=== PATIENT | male | born 1935 | race Caucasian/White ===

== ENCOUNTER 2017-07-31 09:01 | Observation (INO) | payer MEDICARE, MEDICAID ==
[~2017-07-31] VITALS: Ht 167.6 cm; Wt 71.3 kg
[2017-07-31] VITALS (7 sets, daily range): BP systolic 104–172; BP diastolic 52–105
[~2017-07-31 09:01] MED LIST: ASPI-COR81 M1 PO; ASPIRIN 81MG TA81 MG PO; CLONAZEPAM 1MG T1 MG PO; COUMADIN3 MG PO; COUMADIN4 MG PO; DIGOXIN0.125 MG PO; FLAGYL 500MG.500 MG PO; FLOMAX 0.4MG C0.4 MG PO; FUROSEMIDE 40MG40 M1 PO; LASIX 40MG. TAB40 MG PO; LEVOTHYROXINE0.1 M1 PO; LEVOTHYROXINE0.1 MG PO; LOPRESSOR 25MG.25 M1 PO; METOPROLOL50 MG PO; NORCO 325 MG-51 TAB PO; OMEPRAZOLE D/R20 MG PO; OMEPRAZOLE20 MG PO; POTASSIUM CHLO10 ME1 PO; POTASSIUM CHLO10 ME3 PO; POTASSIUM CHLO20 ME2 PO; SIMVASTATIN40 MG PO; TRAMADOL 50MG T50 M1 PO; TRAMADOL50 M1 PO; WARFARIN 3MG TAB3 MG PO; WARFARIN SODIUM1 MG PO; ZOCOR40 MG PO
--- NOTE | 2017-07-31 09:33 | Emergency Room Report ---
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 N Clinical Suspician of Infection? N Mental Status: 1 - Regular (Normal Baseline) Sepsis Risk:Low Sepsis Risk Have you (or family members/close friends) recently traveled outside the [place]? N If Yes, where/when: Have you had exposure to infectious disease within the past month? N TB? Other? Specify: Comment Patient complains of rectal bleeding. He says that this morning he had a sense of tenesmus and sat on the toilet for 30 minutes. He only produced a small amount of stool. He had several episodes of bright red rectal bleeding, at first red blood, then mixed with mucus. He has some slight left-sided abdominal discomfort and a slight discomfort in his rectum. No fever or vomiting. He is on Coumadin for a valve replacement and atrial fibrillation. He thinks his last INR was 4.2 couple of weeks ago. No changes made in his Coumadin dosage. ALLERGIES Coded Allergies: codeine (06/23/17) Home Medications Reported Medications Warfarin Sodium (Coumadin) 4 MG PO [email or web address] WARFARIN SOD (Warfarin 3MG) 3 MG PO [email or web address] Simvastatin (Zocor) 40 MG PO QHS Furosemide (Lasix 40MG) 40 MG PO DAILY POTASSIUM CHL (Potassium Chloride) 10 MEQ PO DAILY LEVOTHYROXINE SOD (Synthroid) 0.1 MG PO DAILY TAMSULOSIN HCL (Flomax 0.4MG) 0.4 MG PO QHS Omeprazole 20 MG PO DAILY Metoprolol Tartrate (Metoprolol) 50 MG PO BID Clonazepam (Clonazepam 1MG) 1 MG PO TID Aspirin (Aspi-Cor) 81 MG PO DAILY History Medical History General CAD? No Angina: Yes [place]: Yes Hypertension? Yes Hyperlipidemia? Yes CHF? No DVT? No PE? No COPD? No Asthma? No Anemia? No GERD? No Gastric ulcers? No GI Bleed? No Hernia? No Thyroid Problems? No Hypothyroidism? No CVA? No Seizures? No Diabetes? No Insulin Dependent: No Insulin Pump: No Home FSBS? No Renal Insuffiency? No End Stage Renal Disease? No UTI? No Stones? No BPH? No GB Disease: No Nephritic Syndrome? No Asplenia? No Hepatitis? No Sickle Cell Disease? No Arthritis? No Migraines? No Cataracts? No Glaucoma? No MRSA? No HIV? No TB? No Anxiety? No Depression? No Cancer? No More? No Immunization Hx DT/Tetanus > 10 Years Ago Flu 2012-FSN Pneumonia Received In Past Surgical Hx Previous Surgery?Y HEART STENTS COLONSCOPY POLYP REMOVED HEART VALVE REPLACEMENT COLON TUMOR REMOVED BILAT INGUINAL HERNIA UMBILICAL HERNIA CARDIAC CATH 11/2013 Family History Family Hx Diabetes No CAD Yes Hypertension No Hyperlipidemia No Cancer Yes TB Yes Social History Smoking Hx Smoker: Never Smoker Tobacco: No Packs/day N/A Alcohol Alcohol: No Review of Systems All Other Systems Reviewed and Negative Constitutional denies fever ENT epistaxis (small amounts for one week). Respiratory denies shortness of breath Cardiovascular denies chest pain, denies palpitations Gastrointestinal see HPI, abdominal pain Physical Exam Vital Signs Vital Signs Date Time Temp Pulse Resp B/P Pulse O2 O2 Flow FiO2 Ox Delivery Rate 07/31 1212 116 18 133/62 95 07/31 1136 135 20 136/80 96 07/31 1101 90 20 142/74 96 07/31 0946 93 20 155/93 97 07/31 0902 97.5 88 20 172/105 97 General Appearance no apparent distress Eye Exam - bilateral eye normal exam, bilateral eye PERRL, bilateral eye EOMI Ear, Nose, Throat hearing grossly normal, normal ENT inspection Neck normal inspection, non-tender, supple, full range of motion Respiratory Status Yes: trachea midline, chest symmetrical, non tender chest. No: respiratory distress. Lung Sounds bilateral: normal breath sounds, lungs clear. Cardiovascular no peripheral edema, no gallop, no JVD, no murmur, no rub, normal peripheral pulses, irregularly irregular, mechanical valve click Peripheral Pulses Pulses normal Yes Gastrointestinal normal bowel sounds, soft, no organomegaly, no guarding, no rebound, tenderness (LEFT lower quadrant) Extremities non-tender, normal range of motion, normal inspection Rectal tight, strictured anal sphincter. No external lesions. Red mucoid blood. No mass. 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 No Results/Orders Laboratory Tests 07/31/17 0940: Stool Occult Blood POSITIVE 07/31/1725: Sodium 141, Potassium 3.8, Chloride 105, Carbon Dioxide 30, BUN 16, Creatinine 0.9, Estimated Creat Clear 63, Estimated GFR (MDRD) 81, Glucose 108 H, Calcium 8.9, Total Bilirubin 0.7, AST 23, ALT 16, Alkaline Phosphatase 74, Total Protein 7.6, Albumin 3.8, Globulin 3.8 H, Albumin/Globulin Ratio 1.0 L, PT 39.0 H, INR 3.56 H, WBC 5.9, RBC 4.99, Hgb 14.2, Hct 43.8, MCV 87.8, RDW 16.1, Plt Count 149, Gran % 82.1 H, Gran # 4.8, Lymphocytes % 14.1, Monocytes % 3.8, Lymphocytes # 0.8, Monocytes # 0.2, PUBS MCHC 32.4, MCH 28.5 Current Medication Orders Sig/Laci Start time Last Medication Dose Route Stop Time Status Admin Clonazepam 1 MG ONCE ONE 07/31 1145 DC 07/31 PO 07/31 1146 1142 Metoprolol Tartrate 50 MG ONCE ONE 07/31 1145 DC 07/31 PO 07/31 1146 1135 Clonazepam 0 .STK-MED ONE 07/31 1139 DC .ROUTE Metoprolol Tartrate 0 .STK-MED ONE 07/31 1135 DC .ROUTE Iopamidol 75 ML ONCE ONE 07/31 1100 DC 07/31 IV 07/31 1101 1054 Sodium Chloride 10 ML ONCE ONE 07/31 1100 DC 07/31 IV 07/31 1101 1054 Sodium Chloride 10 ML PRN PRN 07/31 0915 AC IV 08/01 0913 Orders Procedure Date/time Status DIET-NOTHING BY MOUTH 07/31 L Complete Decision to admit 07/31 1330 Active ELECTROCARDIOGRAM REQUEST 07/31 1125 Active CLOTH TRIMMER HAND 07/[address] ABD/PELVIS REQ 07/31 1010 Complete IV SALINE LOCK 07/31 913 Active STOOL OCCULT BLOOD 07/31 913 Complete PROTHROMBIN TIME 07/31 913 Complete CBC WITH AUTO DIFF 07/31 913 Complete CHEM 12 PROFILE 07/31 913 Complete CM/EKG CM/EKG Comments EKG interpreted by Jj Martínez MD: Rhythm: Atrial fibrillation, rapid response Rate: 133 [place]: normal Ectopy: none Conduction: normal ST Segment Changes: Nonspecific T Wave Changes: Nonspecific Q Waves: none No evidence of acute ischemia or injury Baseline artifact present, but I consider the EKG adequate for accurate interpretation. XRAY/CT/US XRAY/CT/US CT abdomen, pelvis Comment CT scan interpreted by radiologist: Mild constipation, no acute process otherwise. Progress - 11:20 AM: The patient's heart rate is 137 and regular. Electrocardiogram and surveillance monitor ordered. No further episodes of hematochezia in the emergency department. He denies palpitations, chest pain, or shortness of breath. He has not taken his metoprolol today. 12:20 PM: Heart rate 100. 12:58 PM: Case discussed with Dr. Camarillo, physician applications coordinator. He requests that Dr. Gasca be contacted. If Dr. Gasca is agreeable to him being admitted here, admit and consult surgery. 1:15 PM: Discussed with Dr. Gasca. He approves admitting the patient here. He does not know when the patient's last colonoscopy was. He says the patient was admitted for colitis several months ago, possibly January. He does not recall whether he had C. difficile, but thinks he might have. Departure Departure Disposition Still a Patient Clinical Impression Primary Impression: Hematochezia Secondary Impressions: Atrial fibrillation Qualifiers: Atrial fibrillation type: chronic Qualified Code: I48.2 - Chronic atrial fibrillation Condition STABLE Referrals MAYTE HENSLEY (PCP/Family) ED Critical Care Critical Care No at [phone]
[2017-07-31 09:38] LABS: HEMOGLOBIN 14.2 g/dL (14.1-18.0)
[2017-07-31 09:39] LABS: LYMPH # 0.8 K/mm3 (0.7-4.5); LYMPH % 14.1 % (10-50)
[2017-07-31 10:00] LABS: STOOL OCCULT BLOOD POSITIVE (NEG)
--- NOTE | 2017-07-31 11:16 | RADIOLOGY REPORT PS360 ---
CT ABD PELVIS W/ CONTRAST CLINICAL INDICATION: LEFT ABD PAIN RECTAL BLEEDING, history of colon cancer and small bowel obstruction ORDERING PHYSICIAN: Jj Martínez MD PATIENT AGE: 82 years COMPARISON: 06/23/2017 TECHNIQUE: Axial images obtained with sagittal and coronal reformats. PROCEDURE: Oral Contrast: None IV Contrast: 75 mL of Isovue-[id number]. FINDINGS: Lung base images show atelectatic/fibrotic changes in the lung bases. Prior median sternotomy with mitral valve replacement. The liver, gallbladder, spleen, adrenal glands, pancreas, and kidneys have an unremarkable appearance. There is been interval improvement in the small bowel obstruction. There is a mild amount retained colonic feces with colonic diverticulosis. No evidence of diverticulitis. No evidence of large bowel obstruction. Postsurgical changes are present in the right inguinal canal with small bowel loops noted within this region but no evidence of obvious herniation. No acute bony anomalies. IMPRESSION: 1. No acute findings. 2. Previously described small bowel obstruction has improved. 3. Mild constipation
--- NOTE | 2017-07-31 16:06 | CONSULT NOTE ---
Standard Demographics Patient Demo Date of Consultation: 07/31/17 Referring Provider: Zahra Camarillo MD Reason for Consultation: rectal bleeding PRIMARY DIAGNOSIS: RECTAL BLEEDING Allergies: Coded Allergies: codeine (06/23/17) History of Present Illness Chief Complaint: Bleeding with bowel movement History of Present Illness: Patient is an 82-year-old white male with an apparent history of colon lesion for which she had undergone laparotomy with resection many years ago. The exact details of this are unknown but the patient states that it "wasn't a cancer". He has undergone several previous colonoscopies by Dr. Beauchamp. 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 Patient had a post polypectomy bleed at that time required flexible sigmoidoscopy 3 days later. He was recently admitted 06/[address] scan at that time revealed findings of possible obstruction. He was managed appropriately by Dr. Magana as a surgical clinical reviewer at that time and it was determined that he likely had an ileus secondary to positive C. difficile. He had convalesced well. Patient had developed some pressure and urge to defecate. He had some symptoms consistent with tenesmus and had passed blood when he attempted to have a bowel movement. He describes significant soreness. The passage of blood was followed by some mucousy bloody type material. Of note, the patient is on chronic warfarin anticoagulation therapy for history of atrial fibrillation and is on antiplatelet therapy for prior cardiac stents. Past Medical History Reports: CAD, hypertension, cancer. Surgical History Previous Surgery?Y HEART STENTS COLONSCOPY POLYP REMOVED HEART VALVE REPLACEMENT COLON TUMOR REMOVED BILAT INGUINAL HERNIA UMBILICAL HERNIA CARDIAC CATH 11/2013 Allergies Coded Allergies: codeine (06/23/17) Medications: Reported Medications Warfarin Sodium (Coumadin) 4 MG PO [email or web address]@QHS WARFARIN SOD (Warfarin 3MG) 3 MG PO [email or web address]@QHS Simvastatin (Zocor) 40 MG PO QHS Furosemide (Lasix 40MG) 40 MG PO DAILY POTASSIUM CHL (Potassium Chloride) 10 MEQ PO DAILY LEVOTHYROXINE SOD (Synthroid) 0.1 MG PO DAILY TAMSULOSIN HCL (Flomax 0.4MG) 0.4 MG PO QHS Omeprazole 20 MG PO DAILY Metoprolol Tartrate (Metoprolol) 50 MG PO BID Clonazepam (Clonazepam 1MG) 1 MG PO TID Aspirin (Aspi-Cor) 81 MG PO DAILY Additional medical history: Prior heart valve replacement. History of colon "tumor". Recent history of C. difficile. Smoking Hx Tobacco: No Smoker: Never Smoker Type: N/A Packs/day: N/A Are you/the child exposed to second-hand smoke: No Alcohol Alcohol: No Hx of Drug Use Drug Use? No Review of Systems Constitutional No: chills. Skin No: contusions. Immune/allergy No: anaphalaxis. Eyes No: vision loss. ENT No: hearing loss. Respiratory No: shortness of air. Cardiovascular No: chest pain. GI Positive for: hematochezia, rectal pain. (male) No: hematuria. Musculoskeletal No: extremity swelling. Heme Positive for: bleeding. No: bruising. Endocrine No: cold intolerance. Physical Exam VS/I&O Vital Signs Date Time Temp Pulse Resp B/P Pulse O2 O2 Flow FiO2 Ox Delivery Rate 07/31 1556 98.5 71 20 116/62 95 ROOM AIR 07/31 1448 98.6 74 18 110/63 94 ROOM AIR 07/31 1444 73 07/31 1444 98.6 74 18 110/63 07/31 1444 94 ROOM AIR 07/31 1425 97.9 73 18 138/71 94 07/31 1350 73 18 138/71 94 07/31 1212 116 18 133/62 95 07/31 1136 135 20 136/80 96 07/31 1101 90 20 142/74 96 07/31 0946 93 20 155/93 97 07/31 0902 97.5 88 20 172/105 97 Exam General appearance no acute distress Respiratory clear to auscultation Cardiovascular irregular rate and rhythm Abdomen soft Findings/Data On examination his abdomen is somewhat protuberant. He has a large midline scar. There is a visible palpable moderately large reducible umbilical hernia. Visual examination of the anal region reveals no irregularity. Limited digital examination reveals some mucousy stool. Patient has quite significant discomfort with minimal examination. Plan Plan: There is concern for possible rectal pathology. Patient is on chronic warfarin anticoagulation therapy. Would not plan for any instrumentation at this time. If this coagulation profile can be safely corrected he may be old undergo at least sigmoidoscopy later this week if needed. at 1604
--- NOTE | 2017-07-31 17:31 | HISTORY AND PHYSICAL REPORT ---
History and Physical ([facility]) Date of admission: 07/31/17 Chief complaint: rectal bleeding History: History of Present Illness: History of Present Illness: Mr Griffin is an 82-year-old white male of Dr Terry with an apparent history of colon lesion for which he had undergone laparotomy with resection many years ago. The exact details of this are unknown but the patient states that it "wasn' t a cancer". He has undergone several previous colonoscopies by Dr. Beauchamp. 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 Patient had a post polypectomy bleed at that time required flexible sigmoidoscopy 3 days later. He was recently admitted 06/[address] scan at that time revealed findings of possible obstruction. He was managed appropriately by Dr. Magana as a surgical device sales representative at that time and it was determined that he likely had an ileus secondary to positive C. difficile. He had convalesced well. Patient had developed some pressure and urge to defecate. He had some symptoms consistent with tenesmus and had passed blood when he attempted to have a bowel movement. He describes significant soreness. The passage of blood was followed by some mucousy bloody type material. Of note, the patient is on chronic warfarin anticoagulation therapy for history of atrial fibrillation and is on antiplatelet therapy for prior cardiac stents. Patient at time of this exam complains only of rectal pain. he has been constipated recently and has just passed a large amount of stool and feels so much better. He noted no blood. He has been eating without difficulty but confesses to eatin lot of cheese and dairy products. He denies nausea and vomiting and fever. Past Medical History: Medical History: CAD? Yes Angina: Yes [place]: Yes Hypertension? Yes Hyperlipidemia? Yes CHF? No DVT? No PE? No COPD? No Asthma? No Anemia? No GERD? No Gastric ulcers? No GI Bleed? No Hernia? No Thyroid Problems? Yes Hypothyroidism? Yes CVA? No Seizures? No Diabetes? No Insulin Dependent: No Insulin Pump: No Home FSBS? No Renal Insuffiency? No UTI? No Stones? No BPH? No GB Disease: No Nephritic Syndrome? No Asplenia? No Hepatitis? No Sickle Cell Disease? No Arthritis? Yes Migraines? No Cataracts? No Glaucoma? No MRSA? No HIV? No TB? No Anxiety? No Depression? No Cancer? No More? No Additional hx: MVR Chronic coumadin therapy Essential tremor Surgical history: Previous Surgery?Y HEART STENTS COLONSCOPY POLYP REMOVED HEART VALVE REPLACEMENT COLON TUMOR REMOVED BILAT INGUINAL HERNIA UMBILICAL HERNIA CARDIAC CATH 11/2013 Medications: Reported Medications Warfarin Sodium (Coumadin) 4 MG PO SuTuThSa@QHS WARFARIN SOD (Warfarin 3MG) 3 MG PO MoWeFr@QHS Simvastatin (Zocor) 40 MG PO QHS Furosemide (Lasix 40MG) 40 MG PO DAILY POTASSIUM CHL (Potassium Chloride) 10 MEQ PO DAILY LEVOTHYROXINE SOD (Synthroid) 0.1 MG PO DAILY TAMSULOSIN HCL (Flomax 0.4MG) 0.4 MG PO QHS Omeprazole 20 MG PO DAILY Metoprolol Tartrate (Metoprolol) 50 MG PO BID Clonazepam (Clonazepam 1MG) 1 MG PO TID Aspirin (Aspi-Cor) 81 MG PO DAILY Allergies: Coded Allergies: codeine (06/23/17) Family History: Family history: Postive for: cancer. Negative for: CAD, DM. Social History: Smoking Hx Tobacco: No Smoker: Never Smoker Type: N/A Packs/day: N/A Are you exposed to second hand No Alcohol: Alcohol: No Hx of Drug Use: Drug Use? No Review of Systems: ENT Positive for: nose bleed, sinus problems. No: sore throat. Cardiovascular Positive for: edema. No: chest pain, palpitations. Respiratory No: shortness of air, hemoptysis, non-productive, productive cough (sputum). GI Positive for: constipation, hematochezia, hernia, rectal pain. No: GERD, abdominal pain, diarrhea, hematemeis, melena, nausea, vomitting. (male) No: hematuria. Neurological No: dizziness, headache, seizure, syncope. Musculoskeletal Positive for: joint pain. Physical Exam: Vital signs: Vital Signs Date Time Temp Pulse Resp B/P Pulse O2 O2 Flow FiO2 Ox Delivery Rate 07/31 1556 98.5 71 20 116/62 95 ROOM AIR 07/31 1448 98.6 74 18 110/63 94 ROOM AIR 07/31 1444 73 07/31 1444 98.6 74 18 110/63 07/31 1444 94 ROOM AIR 07/31 1425 97.9 73 18 138/71 94 07/31 1350 73 18 138/71 94 07/31 1212 116 18 133/62 95 07/31 1136 135 20 136/80 96 07/31 1101 90 20 142/74 96 07/31 0946 93 20 155/93 97 07/31 0902 97.5 88 20 172/105 97 1ST Vital Signs Result Date Time Pulse Ox 97 07/31 902 B/P 172/105 07/31 902 Temp 97.5 07/31 902 Pulse 88 07/31 09 Resp 20 07/31 902 O2 Delivery ROOM AIR 07/31 1444 Exam: General appearance: alert, active, no acute distress, sitting on bedside and looks comfortable Eyes: anicteric ENT: mucous membranes moist, pharynx normal Neck: non-tender, no carotid bruit, full range of motion, supple, lymphadenopathy (absent), thyroid (normal) Cardiovascular: irregularly irregular, prosthetic valve click Respiratory: clear to auscultation (bilat anterior and posterior) ABD: soft, no tenderness, no guarding, bowel sounds present, hernia, rectal per Dr. Galvan: mucousy stool; quite a bit of discomfort with exam Extremities: no peripheral edema Neuro: alert, oriented, speech clear, head tremor Lab data: Labs: Laboratory Tests 07/31/17 0940: Stool Occult Blood POSITIVE 07/31/17 0925: Sodium 141, Potassium 3.8, Chloride 105, Carbon Dioxide 30, BUN 16, Creatinine 0.9, Estimated Creat Clear 63, Estimated GFR (MDRD) 81, Glucose 108 H, Calcium 8.9, Total Bilirubin 0.7, AST 23, ALT 16, Alkaline Phosphatase 74, Total Protein 7.6, Albumin 3.8, Globulin 3.8 H, Albumin/Globulin Ratio 1.0 L, PT 39.0 H, INR 3.56 H, WBC 5.9, RBC 4.99, Hgb 14.2, Hct 43.8, MCV 87.8, RDW 16.1, Plt Count 149, Gran % 82.1 H, Gran # 4.8, Lymphocytes % 14.1, Monocytes % 3.8, Lymphocytes # 0.8, Monocytes # 0.2, PUBS MCHC 32.4, MCH 28.5 Radiology results: Results: 07/31/17 CT of abdomen IMPRESSION: 1. No acute findings. 2. Previously described small bowel obstruction has improved. 3. Mild constipation Diagnosis(es): 1. Atrial fibrillation 2. Hematochezia 3. Mechanical heart valve present Plan: Pt has been seen by surgeon, Dr. Galvan who will follow pt this admission; monitor H&H at 1694
--- NOTE | 2017-07-31 18:33 | ACUTE CARE PROGRESS NOTE (QUA) ---
See Addendum Progress Notes Subjective Date 07/31/17 Time 1815 Note 82 y.o. white male admitted with rectal bleeding that started this AM. He is currently a patient of Dr. Garcia Terry, [facility] (though he is known to have been under Dr. Camarillo's care in the remote past.). Patient has had prior history of rectal bleeding. Colonoscopies were performed in 07/2003 (polyp x2), Dr. Beauchamp; 09/2007 with excision of large tubulovillous adenoma, Dr. Beauchamp; "partial colonoscopy" for GI bleed, Dr. Galvan, The patient has aortic AND mitral valve prosthetics. He has had stent(s) placed. Apparently the patient has recently had C. diff colitis and was treated with antibiotic. He was seen and examined in the ER. He seems clinically stable, NAD. H&H is good at this time. Objective Findings Laboratory Tests 07/31/17 0940: Stool Occult Blood POSITIVE 07/31/17 0925: Sodium 141, Potassium 3.8, Chloride 105, Carbon Dioxide 30, BUN 16, Creatinine 0.9, Estimated Creat Clear 63, Estimated GFR (MDRD) 81, Glucose 108 H, Calcium 8.9, Total Bilirubin 0.7, AST 23, ALT 16, Alkaline Phosphatase 74, Total Protein 7.6, Albumin 3.8, Globulin 3.8 H, Albumin/Globulin Ratio 1.0 L, PT 39.0 H, INR 3.56 H, WBC 5.9, RBC 4.99, Hgb 14.2, Hct 43.8, MCV 87.8, RDW 16.1, Plt Count 149, Gran % 82.1 H, Gran # 4.8, Lymphocytes % 14.1, Monocytes % 3.8, Lymphocytes # 0.8, Monocytes # 0.2, PUBS MCHC 32.4, MCH 28.5 Last VS-Temp:98.5 B/P:116/62 Pulse:71 Resp:20 SaO2:95 ROOM AIR Last weight lbs:157 oz:3 K.300 Method:Bed Scales Exam General appearance: alert, no acute distress Eyes: anicteric, conjunctiva clear, PERRLA ENT: mucous membranes moist Neck: carotid bruit (referred) Cardiovascular: irregularly irregular, prosthetic valve click Respiratory: aerating well, clear to auscultation (wheeze right) ABD: soft, no tenderness, no guarding Genitourinary: normal voiding & quantity Extremities: no peripheral edema Musculoskeletal: equal muscle strength Skin: dry, intact Neuro: oriented, speech clear (tremor prominent) Reviewed: medications, vital signs, lab results, radiology report Assessment/Plan Problem List 1. Atrial fibrillation 2. Hematochezia 3. Mechanical heart valve present Patient condition Stable Plan: consult surgeon, follow H&H. Lovenox in Lieu of coumadin. This inpt stay is expected to cross 2 MNs from start of care Yes at 1833
[2017-08-01 04:10] VITALS: BP 114/60
--- NOTE | 2017-08-01 07:55 | PHARMACY CLINIC NOTE ---
Patient Demographics Patient Demographics Admission date: 07/31/17 Date: 08/01/17 Time: 0754 Allergies Coded Allergies: codeine (06/23/17) HEIGHT- FT: 5 IN: 6.00 K.300 VTE General Information Labs: Laboratory Tests 07/31 0925 Coagulation PT (9.4 - 11.8 SECONDS) 39.0 H INR (0.9 - 1.1) 3.56 H Hematology Hgb (14.1 - 18.0 g/dL) 14.2 Hct (42.0 - 52.0 %) 43.8 Plt Count (142 - 424 K/mm3) 149 Disclaimer The following section includes nursing documentation that has been pulled in for pharmacy review. Patient's VTE score: 1 Patient's VTE Risk: VERY LOW RISK Clinical trial participant? No VTE prophylaxis NQF [id number] VTE prophylaxis ordered? Yes Type of prophylaxis/treatment: JEFFY at 0754
[2017-08-01 08:00] VITALS: BP 128/65
[2017-08-01 08:01] LABS: HEMOGLOBIN 13.9 g/dL (14.1-18.0); LYMPH # 1.4 K/mm3 (0.7-4.5); LYMPH % 16.9 % (10-50)
[2017-08-01 08:03] VITALS: BP 114/60
--- NOTE | 2017-08-01 09:02 | ACUTE CARE PROGRESS NOTE (QUA) ---
Progress Notes Subjective Date 08/01/17 Time 0849 Note States he is better; slept well; had another stool this AM. no noted blood; thinks he was having to strain too much at home for the past few days; eating without problems; has ambulated in the room without problems Objective Findings Laboratory Tests 08/01/17 0631: Sodium 139, Potassium 4.1, Chloride 104, Carbon Dioxide 29, BUN 14, Creatinine 0.9, Estimated Creat Clear 62, Estimated GFR (MDRD) 81, Glucose 106, Calcium 8.8 , PT 29.2 H, INR 2.68 H, WBC 8.1, RBC 4.99, Hgb 13.9 L, Hct 43.8, MCV 87.8, RDW 15.4, Plt Count 167, Gran % 78.9, Gran # 6.4, Lymphocytes % 16.9, Monocytes % 4.2, Lymphocytes # 1.4, Monocytes # 0.3, PUBS MCHC 31.7 L, MCH 27.9 07/31/17 0940: Stool Occult Blood POSITIVE 07/31/17 0925: Sodium 141, Potassium 3.8, Chloride 105, Carbon Dioxide 30, BUN 16, Creatinine 0.9, Estimated Creat Clear 63, Estimated GFR (MDRD) 81, Glucose 108 H, Calcium 8.9, Total Bilirubin 0.7, AST 23, ALT 16, Alkaline Phosphatase 74, Total Protein 7.6, Albumin 3.8, Globulin 3.8 H, Albumin/Globulin Ratio 1.0 L, PT 39.0 H, INR 3.56 H, WBC 5.9, RBC 4.99, Hgb 14.2, Hct 43.8, MCV 87.8, RDW 16.1, Plt Count 149, Gran % 82.1 H, Gran # 4.8, Lymphocytes % 14.1, Monocytes % 3.8, Lymphocytes # 0.8, Monocytes # 0.2, PUBS MCHC 32.4, MCH 28.5 Vital Signs Date Time Temp Pulse Resp B/P Pulse O2 O2 Flow FiO2 Ox Delivery Rate 08/01 0803 98.4 67 16 114/60 94 08/01 0800 98.4 118 20 128/65 94 ROOM AIR 08/01 0410 98.4 67 16 114/60 94 ROOM AIR 07/31 2349 97.9 66 18 104/52 93 ROOM AIR 09/26 2000 98.6 73 18 134/55 94 07/31 1955 98.6 73 18 134/55 94 ROOM AIR 07/31 1556 98.5 71 20 116/62 95 ROOM AIR 07/31 1448 98.6 74 18 110/63 94 ROOM AIR 07/31 1444 73 07/31 1444 98.6 74 18 110/63 07/31 1444 94 ROOM AIR 07/31 1425 97.9 73 18 138/71 94 07/31 1350 73 18 138/71 94 07/31 1212 116 18 133/62 95 07/31 1136 135 20 136/80 96 07/31 1101 90 20 142/74 96 07/31 0946 93 20 155/93 97 07/31 0902 97.5 88 20 172/105 97 Current Medications Furosemide 40 MG DAILY PO Levothyroxine Sodium 0.1 MG DAILY PO Potassium Chloride 10 MEQ DAILY PO Clonazepam 0 .STK-MED ONE PO (DC) Clonazepam 1 MG TID PO Metoprolol Tartrate 50 MG BID PO Tamsulosin HCl 0.4 MG QHS PO Clonazepam 0 .STK-MED ONE PO (DC) Influenza Virus Vaccine Quadrival 0.5 ML PRN PRN IM Nicotine 21 MG DAILYP PRN TD Sodium Chloride 1,000 ML .[id number] IV (CAN) Sodium Chloride 10 ML PRN PRN IV Clonazepam 1 MG ONCE ONE PO (DC) Metoprolol Tartrate 50 MG ONCE ONE PO (DC) Clonazepam 0 .STK-MED ONE .ROUTE (DC) Metoprolol Tartrate 0 .STK-MED ONE .ROUTE (DC) Iopamidol 75 ML ONCE ONE IV (DC) Sodium Chloride 10 ML ONCE ONE IV (DC) Sodium Chloride 10 ML PRN PRN IV 07/31 1500 07/31 2300 08/01 0700 Intake Total 240 Output Total 1800 Balance 240 -1800 Intake, Oral 240 Output, Stool Output, Urine 1800 Patient 157 lb Weight Last VS-Temp:98.4 B/P:114/60 Pulse:67 Resp:16 SaO2:94 ROOM AIR Last weight lbs:157 oz:3 K.300 Method:Bed Scales Exam General appearance: alert, active, no acute distress, well-developed, well- nourished, head tremor Cardiovascular: irregularly irregular Respiratory: clear to auscultation (bilat anterior and posterior) ABD: non-distended, soft, no tenderness, bowel sounds present Extremities: no peripheral edema, no calf tenderness Neuro: alert, oriented, speech clear Assessment/Plan Problem List 1. Atrial fibrillation 2. Hematochezia 3. Mechanical heart valve present 4. Rectal pain 5. Tremor 6. Constipation Patient condition improved Plan: continue current care, discharge to home; will need miralax; discussed constipating foods This inpt stay is expected to cross 2 MNs from start of care No at 0902
[2017-08-01] MEDS ORDERED: MIRALAX(PO17 GM/1 PA PO (09:19)
--- NOTE | 2017-08-01 10:12 | SURGEON PROGRESS NOTE ---
Subjective data Subjective data: HOMER FIERRO SR is a 82 M .Patient denies complaint of nausea and vomitting.He reports his last pain level as 0 on a 0-10 pain scale. Patient doing well without complaints. Moved bowels without blood. Still with some discomfort. States, "I get to go home." Assessment findings Assessment Exam ABD: soft, no tenderness Patient plan Plan: DC Additional data: Recommend outpatient colonoscopy in near future. at 1012
[2017-08-01 11:13] VITALS: BP 114/60
--- NOTE | 2017-08-02 07:44 | DISCHARGE SUMMARY STANDARD ---
Discharge Summary ([facility]2) Date of admission: 07/31/17 Date of discharge: 08/01/17 Problem List: 1. Atrial fibrillation 2. Hematochezia 3. Mechanical heart valve present 4. Rectal pain 5. Tremor 6. Constipation History of present illness: Mr Griffin is an 82-year-old white male of Dr Terry with an apparent history of colon lesion for which he had undergone laparotomy with resection many years ago. The exact details of this are unknown but the patient states that it "wasn' t a cancer". He has undergone several previous colonoscopies by Dr. Beauchamp. 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 Patient had a post polypectomy bleed at that time and required flexible sigmoidoscopy 3 days later. He was recently admitted 06/[address] scan at that time revealed findings of possible obstruction. He was managed appropriately by Dr. Magana as a medical economics consultant at that time and it was determined that he likely had an ileus secondary to positive C. difficile. He had convalesced well. Patient had developed some pressure and urge to defecate. He had some symptoms consistent with tenesmus and had passed blood when he attempted to have a bowel movement. He described significant soreness. The passage of blood was followed by some mucousy bloody type material. Of note, the patient was on chronic warfarin anticoagulation therapy for history of atrial fibrillation as well as antiplatelet therapy for prior cardiac stents. Patient denied nausea, vomiting and diarrhea. He had been eating as usual. Evaluation in the ER included CT of abdomen/pelvis which showed mild constipation. He was noted to have a rapid HR and was given metoprolol PO after which his HR was < 100. He noted that he had not taken his AM meds. Exam on admission: Vital Signs Date Time Temp Pulse Resp B/P Pulse O2 O2 Flow FiO2 Ox Delivery Rate 07/31 1556 98.5 71 20 116/62 95 ROOM AIR 07/31 1448 98.6 74 18 110/63 94 ROOM AIR 07/31 1444 73 07/31 1444 98.6 74 18 110/63 07/31 1444 94 ROOM AIR 07/31 1425 97.9 73 18 138/71 94 07/31 1350 73 18 138/71 94 07/31 1212 116 18 133/62 95 07/31 1136 135 20 136/80 96 07/31 1101 90 20 142/74 96 07/31 0946 93 20 155/93 97 07/31 0902 97.5 88 20 172/105 97 1ST Vital Signs Result Date Time Pulse Ox 97 07/31 902 B/P 172/105 07/31 902 Temp 97.5 07/31 902 Pulse 88 07/31 902 Resp 20 07/31 902 O2 Delivery ROOM AIR 07/31 1444 Exam: General appearance: alert, active, no acute distress, sitting on bedside and looks comfortable Eyes: anicteric ENT: mucous membranes moist, pharynx normal Neck: non-tender, no carotid bruit, full range of motion, supple, lymphadenopathy (absent), thyroid (normal) Cardiovascular: irregularly irregular, prosthetic valve click Respiratory: clear to auscultation (bilat anterior and posterior) ABD: soft, no tenderness, no guarding, bowel sounds present, hernia, rectal per Dr. Galvan: mucousy stool; quite a bit of discomfort with exam Extremities: no peripheral edema Neuro: alert, oriented, speech clear, head tremor Hospital Course: Patient did not experience any nausea, vomiting or abdominal pain after admissiom He only complained of rectal pain. He passed a large amount of stool after which he felt much better. He noted no blood. He ate without difficulty. H&H remained stable. AM of 08/01/17 he was doing well and was discharged to home. Laboratory data this visit: 07/31/17 0940: Stool Occult Blood POSITIVE 07/31/17 0925: Sodium 141, Potassium 3.8, Chloride 105, Carbon Dioxide 30, BUN 16, Creatinine 0.9, Estimated Creat Clear 63, Estimated GFR (MDRD) 81, Glucose 108 H, Calcium 8.9, Total Bilirubin 0.7, AST 23, ALT 16, Alkaline Phosphatase 74, Total Protein 7.6, Albumin 3.8, Globulin 3.8 H, Albumin/Globulin Ratio 1.0 L, PT 39.0 H, INR 3.56 H, WBC 5.9, RBC 4.99, Hgb 14.2, Hct 43.8, MCV 87.8, RDW 16.1, Plt Count 149, Gran % 82.1 H, Gran # 4.8, Lymphocytes % 14.1, Monocytes % 3.8, Lymphocytes # 0.8, Monocytes # 0.2, PUBS MCHC 32.4, MCH 28.5 08/01/17 0631: Sodium 139, Potassium 4.1, Chloride 104, Carbon Dioxide 29, BUN 14, Creatinine 0.9, Estimated Creat Clear 62, Estimated GFR (MDRD) 81, Glucose 106, Calcium 8.8 , PT 29.2 H, INR 2.68 H, WBC 8.1, RBC 4.99, Hgb 13.9 L, Hct 43.8, MCV 87.8, RDW 15.4, Plt Count 167, Gran % 78.9, Gran # 6.4, Lymphocytes % 16.9, Monocytes % 4.2, Lymphocytes # 1.4, Monocytes # 0.3, PUBS MCHC 31.7 L, MCH 27.9 Imagin07/31/17 CT of abdomen IMPRESSION: 1. No acute findings. 2. Previously described small bowel obstruction has improved. 3. Mild constipation Discharge medications: Continue taking these medications: Simvastatin (Zocor) 40 MG TABLET 40 MILLIGRAM ORAL AT BEDTIME NIGHTLY Furosemide (Lasix 40MG) 40 MG TABLET 40 MILLIGRAM ORAL DAILY POTASSIUM CHL (Potassium Chloride) 10 MEQ TABLET.ER 10 Milliequivalent ORAL DAILY LEVOTHYROXINE SOD (Synthroid) 100 MCG TABLET 0.1 MILLIGRAM ORAL DAILY TAMSULOSIN HCL (Flomax 0.4MG) 0.4 MG CAP.ER.24H 0.4 MILLIGRAM ORAL AT BEDTIME NIGHTLY Warfarin Sodium (Coumadin) 4 MG TABLET 4 MILLIGRAM ORAL [id number] Omeprazole (Omeprazole) 20 MG CAPSULE.DR 20 MILLIGRAM ORAL DAILY Metoprolol Tartrate (Metoprolol) 50 MG TABLET 50 MILLIGRAM ORAL TWICE A DAY Clonazepam (Clonazepam 1MG) 1 MG TABLET 1 MILLIGRAM ORAL THREE TIMES A DAY Aspirin (Aspi-Cor) 81 MG CTB 81 MILLIGRAM ORAL DAILY WARFARIN SOD (Warfarin 3MG) 3 MG TABLET 3 MILLIGRAM ORAL [id number] Start taking the following new medications: POLYETHYLENE GLYCOL (Miralax) 17 GM POWD.PACK 17 GRAM ORAL DAILY Qty = 30 Refills = 1 Disposition: Patient was discharged to home in stable and satisfactory condidion. Follow up: [address] Luis Miguel Terry Comments, Specifics r/t O2, Equipment, Antibiotics, etc: To Follow up with PCP and Dr. Galavn; will continue with coumadin for valve replacements andat Fib. He was therapeutic at time of discharge Activity: Cont Current activity Diet: Continue same diet non constipating foods Discharge to: HOME Agency needed? N Meds as per reconciliation sheet at 0743
--- OUTSIDE RECORDS SUMMARY | 2017-08-15 10:30 | External Medical Summary Rpt ---
Author Author , GRACY Organization GRACY Address Unknown Phone [email or web address] Care Team Providers Care Fluxer Name Role Phone DEZ II, DEZ II Unavailable Unavailable RANJEET POLLACK Unavailable Unavailable Ramana Hernández MD, Unavailable Unavailable Ramana Hernández MD [facility] Unavailable Unavailable DEPARTMENT, [facility] Unavailable Unavailable DEPARTMENT, [facility] Unavailable Unavailable CONSULTANTS O, [facility] Unavailable [facility]available [facility], [facility] Unavailable Unavailable [facility], [facility] Unavailable Unavailable LAB, [facility] BELÉN LILLIE, Unavailable Unavailable BELÉN LILLIE BELÉN LILLIE, Unavailable Unavailable BELÉN LILLIE [facility], Unavailable Unavailable [facility] FALLUJI FAWN, FALLUJI Unavailable Unavailable FAWN FALLUJI FAWN, FALLUJI Unavailable Unavailable FAWN FALLUJI, NEZAR M, Unavailable Unavailable FALLUJI, NEZAR M JUAQUIN DEISY, JUAQUIN Unavailable Unavailable DEISY JUAQUIN DEISY, JUAQUIN Unavailable Unavailable DEISY [facility] Unavailable Unavailable INC, [facility] BABCOCK GURPREET, BABCOCK Unavailable Unavailable GURPREET WILSON CAMACHO, WILSON CAMACHO Unavailable Unavailable [facility], Unavailable Unavailable [facility] Unavailable Unavailable [facility], [facility], [facility] Un[facility], [facility] WERO JR DWI, WERO Unavailable Unavailable JR DWI WERO JR DWI, WERO Unavailable Unavailable JR DWI WERO, CASTILLO E, Unavailable Unavailable WERO, CASTILLO E JANETTE MARQUIS, Unavailable Unavailable JANETTE MARQUIS, Unavailable Unavailable ROGER REYES, Unavailable Unavailable ROGER ROUSE NEUS, NEUS Unavailable Unavailable NEUS ANNABEL, NEUS ANNABEL Unavailable Unavailable RESENDEZ GRA, RESENDEZ GRA Unavailable Unavailable [facility], Unavailable [facility]available [facility] EDIN LEAH, Unavailable Unavailable SCHULSTAD, LEAH TAMMY, TAMMY Unavailable Unavailable TAMMY MAT, Unavailable Unavailable TAMMY MAT [facility] -, Unavailable Unavailable [facility] - Siddhartha Rivera MD, Unavailable Unavailable Siddhartha DAS, Unavailable Unavailable ROSEANNE CRONIN DON, Unavailable Unavailable ROSEANNE CRONIN, THIAGO R, Unavailable Unavailable ROSEANNE, DON R [facility] Unavailable Unavailable #[id number], [id number] WEHRMAN III BART, Unavailable Unavailable WEHRMAN III BART Purpose Continuity of Care Document - 11-27-2007 through 2016 Problems Code Diagnosis DOS Provider Status J069 ACUTE UPPER 06-29-2017 [facility] INFECTION UNSPECIFIED R109 UNSPECIFIED 06-29-2017 [facility] ABDOMINAL [facility] PAIN [facility] I517 CARDIOMEGAL 06-26-2017 [facility] R042 HEMOPTYSIS 06-26-2017 [facility] R918 OTHER 06-26-2017 [facility] NONSPECIFIC INC ABNORMAL FINDING OF LUNG FIELD Z951 PRESENCE OF 06-26-2017 [facility] AORTOCORONA RY BYPASS GRAFT I4891 UNSPECIFIED 05-30-2017 [facility] ATRIAL [facility] FIBRILLATIO HEALTH CTR N Z952 PRESENCE OF 05-30-2017 [facility] PROSTHETIC [facility]ART [facility]ALTH CTR VALVE I10 ESSENTIAL 05-02-2017 [facility] PRIMARY [facility] HYPERTENSIO HEALTH CTR N 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 SIS DUE TO HEALTH CTR LIPID RICH [place]QUE E785 HYPERLIPIDE 05-01-2017 [facility] UNSPECIFIED GROUP I119 HYPERTENSIV 05-01-2017 [facility] E HEART PHYSICIANS DISEASE GROUP WITHOUT HEART FAILURE 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 I4892 UNSPECIFIED 05-01-2017 [facility] ATRIAL PHYSICIANS FLUTTER GROUP R251 TREMOR 05-01-2017 [facility] UNSPECIFIED PHYSICIANS GROUP 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[facility] 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 E039 HYPOTHYROID 02-26-2017 [facility] ISM [facility] UNSPECIFIED HEALTH CTR I509 HEART 02-26-2017 [facility] FAILURE FAMILY UNSPECIFIED HEALTH CTR Z5181 ENCOUNTER 02-26-2017 [facility] FOR [facility]ILY THERAPEUTIC HEALTH CTR DRUG LEVEL MONITORING Z7901 JAIL 02-26-2017 [facility] CURRENT USE FAMILY OF HEALTH CTR ANTICOAGULA NTS Z760 ENCOUNTER 01-15-2017 [facility] FOR ISSUE FAMILY OF REPEAT HEALTH CTR PRESCRIPTIO N 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 10-24-2016 [facility] INSUFFICIEN CY I371 NONRHEUMATI 10-24-2016 [facility] PULMONARY SERV [facility] INSUFFICIEN CY 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 SPONDYLOSIS 09-12-2016 [facility] W/O INC MYELOPATH/R ADICULOPATH Y CERV RGN M5412 RADICULOPAT 09-12-2016 [facility] HY CERVICAL [facility] REGION [facility] CTR M542 CERVICALGIA 09-12-2016 [facility] Z953 PRESENCE OF 07-11-2016 [facility] XENOGENIC FAMILY HEART VALVE HEALTH CTR E038 OTHER 06-02-2016 [facility] SPECIFIED FAMILY HYPOTHYROID HEALTH CTR ISM E782 MIXED 06-02-2016 [facility] HYPERLIPIDE [facility]ILY [facility] CTR E079 DISORDER OF 05-02-2016 [facility] THYROID PHYSICIANS UNSPECIFIED GROUP B028 ZOSTER WITH 04-12-2016 [facility] OTHER FAMILY COMPLICATIO HEALTH CTR NS G250 ESSENTIAL 04-12-2016 [facility] TREMOR [facility]ILY [facility] CTR I38 ENDOCARDITI 02-01-2016 [facility] S VALVE PHYSICIANS UNSPECIFIED GROUP G252 OTHER 10-27-2015 [facility] SPECIFIED FAMILY FORMS OF HEALTH CTR TREMOR I999 UNSPECIFIED 10-27-2015 [facility] DISORDER FAMILY OF HEALTH CTR CIRCULATORY SYSTEM M159 POLYOSTEOAR 10-27-2015 [facility] THRITIS FAMILY UNSPECIFIED HEALTH CTR 06544 UNSPEC HTN 08-03-2015 [facility] HE[facility] LAR DISEASE CONSULTANTS WITHOUT O HEART FAIL 89657 COR 08-03-2015 [facility] ATHEROSLERO LAR UNSPEC CONSULTANTS TYPE VESSEL O KASHIA/RUCHI T 85166 OTHER 08-03-2015 [facility] ENDOCARDITI LAR S VALVE [place] 59547 ATRIAL 08-03-2015 [facility] FLUTTER LAR CONSULTANTS O 67270 EFFUSION OF 05-31-2015 [facility] ANKLE AND INC FOOT JOINT V714 OBSERVATION 05-31-2015 [facility] FOLLOWING INC OTHER ACCIDENT 23266 PAIN IN 05-22-2015 [place] JOINT, [facility] FOOT 7295 PAIN IN 05-22-2015 [place] SOFT MEDICAL TISSUES OF IMAGING ASS LIMB 9597 INJURY 05-22-2015 [place] OTHER&UNSPE MEDICAL CIFIED [facility] LEG ANKLE&FOOT 2724 OTHER AND 05-03-2015 [facility] UNSPECIFIED LAR CONSULTANTS HYPERLIPIDE O BORA 08987 ATRIAL 05-03-2015 [facility] FIBRILLATIO LAR N CONSULTANTS O V5861 LONG-TERM 03-25-2014 [facility] USE OF INC ANTICOAGULA NTS 5119 UNSPECIFIED 03-11-2014 BEL[facility] PLEURAL LILLIE EFFUSION 5180 PULMONARY 03-11-2014 BELÉ[facility] COLLAPSE LILLIE 87086 OTHER 03-11-2014 BELÉN DISEASES OF LILLIE LUNG NOT ELSEWHERE CLASSIFIED 73161 SHORTNESS 03-11-2014 [facility] BREATH [facility] INC 04097 CHEST PAIN 03-11-2014 [facility] UNSPECIFIED [facility] INC E8889 UNSPECIFIED 03-11-2014 BELÉN FALL LILLIE 2449 UNSPECIFIED 03-04-2014 JUAQUIN DEISY HYPOTHYROID ISM 9221 CONTUSION 03-04-2014 [facility] CHEST [facility] WALL INC 4019 UNSPECIFIED 01-03-2014 [facility] ESSENTIAL [facility] HYPERTENSIO INC N 4139 OTHER AND 01-03-2014 [facility] UNSPECIFIED [facility] ANGINA INC PECTORIS 401.9 401.9 12-01-2013 [facility] HYPERTENSIO [facility] NOS Hospital 410.72 410.72 AC 12-01-2013 [facility] MYOCARD [facility] INFARCT,[facility] Hospital ENDO INFARCT,SUB SEQ EPISODE 427.31 427.31 12-01-2013 [facility] ATRIAL [facility] FIBRILLATIO Hospital N 780.2 780.2 12-01-2013 Erm[facility] SYNCOPE AND [facility] 786.59 786.59 12-01-2013 [facility] CHEST PAIN [facility] V43.3 V43.3 HEART 12-01-2013 [facility] VALVE [facility] V45.09 V45.09 12-01-2013 [facility] OTHER [facility] SPECIFIED Hospital CARDIAC DEVICE IN SITU V45.82 V45.82 12-01-2013 [facility] ANGIOPLASTY STATUS V58.61 V58.61 12-01-2013 [facility] ANTICOAGULA [facility] NTS,LT,[facility] ENT USE V58.69 V58.69 OTH 12-01-2013 [facility] MED,LT,[facility] ENT USE Hospital 63096 ACUT DE 11-30-2013 [facility] SUBENDOCARD [facility] IAL INFARCT INC SUBSQT EPIS CARE 47158 OTHER CHEST 11-30-2013 [facility] PAIN [facility] INC V4509 OTHER 11-30-2013 [facility] SPECIFIED [facility] CARDIAC INC DEVICE IN SITU V4582 POSTSURG 11-30-2013 [facility] PERCUT [facility] TRANSLUMINA INC [place] TALAMANTESPLSTY STS V5869 LONG-TERM 11-30-2013 [facility] (CURRENT) [facility] USE OF INC OTHER MEDICATIONS 300.00 300.00 11-19-[address] [facility] Hospital 410.71 410.71 AC 11-19-2013 [facility] MYOCARDIAL [facility] INFARCT,SUB Hospital ENDO INFARCT,INI TIAL EPIS 413.9 413.9 11-19-2013 [facility] ANGINA [facility] PECTORIS [facility] NEC/NOS 414.01 414.01 11-19-2013 [facility] CORONARY [facility] OSIS OF KASHIA CORONARY VESSEL 50529 ACUT DE 11-18-2013 [facility] LEACH SUBENDOCARD DWI IAL INFARCT INIT EPIS CARE 92466 CORONARY 11-18-2013 [facility] ATHEROSCLER DWI OSIS KASHIA CORONARY ARTERY 7062 SEBACEOUS 01-31-2013 CRONIN CYST DON 4149 UNSPECIFIED 11-18-2012 CRONIN CHRONIC DON ISCHEMIC HEART DISEASE 34186 NUCLEAR 09-17-2012 [facility] GURPREET SCLEROSIS 59725 VITREOUS 06-25-2012 JANETTE DEGENERATIO JAM N 94702 ATHEROSLERO 04-25-2012 [place] NATV ART MEDICAL EXTREM IMAGING ASS W/INTERMIT CLAUDICAT 71618 ATHEROSLERO 04-25-2012 [place] KASHIA ART MEDICAL [facility]ING ASS EXTREMITIES W/REST PAIN 4439 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 [facility]AL [facility] DISEASE 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 92679 HEMATURIA 12-04-2011 CRONIN UNSPECIFIED DON 7823 EDEMA 12-04-2011 CRONIN DON 8472 LUMBAR 12-04-2011 CRON[facility] SPRAIN AND DON STRAIN V7644 SPECIAL 09-01-2011 [facility] SCREENING PHYSICIANS MALIGNANT LA NEOPLASM OF PROSTATE V0481 NEED 07-14-2011 [facility] PROPHYLACTI HEALTH C DEPARTMENT VACCINATION &INOCULATIO N FLU 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 3668 OTHER 12-26-2010 CRONIN CATARACT DON 90225 HEMOPTYSIS 09-27-2010 CRONIN UNSPECIFIED DON 9211 CONTUSION 08-08-2010 CRONIN OF EYELIDS DON AND PERIOCULAR AREA 48000 DIAB W/O 07-15-2010 [facility] COMP TYPE PHYSICIANS II/UNS NOT LA STATED UNCNTRL 15271 OTHER 02-07-2010 [facility]A [facility] RESPIRATORY PROF SERV ABNORMALITI ES 2720 PURE 01-18-2010 ROSEANNE HYPERCHOLES DON R TEROLEMIA 4011 ESSENTIAL 01-18-2010 ROSEANNE HYPERTENSIO DON R N, BENIGN 4659 ACUTE URIS 11-22-2009 ROSEANNE OF DON R UNSPECIFIED SITE 56993 CONTUSION 07-28-2009 ROSEANNE OF LOWER DON R LEG 496 CHRONIC 02-26-2009 ROSE[facility]NE AIRWAY DON R OBSTRUCTION NEC V4581 POSTSURGICA 02-26-2009 ROSEANNE L DON R AORTOCORONA RY BYPASS STATUS 6019 UNSPECIFIED 01-28-2009 [facility] PROSTATITIS LAB 10566 ENDOCARDITI 01-26-2009 ROSEANNE S VALVE DON R UNSPECIFIED UNSPECIFIED CAUSE 460 ACUTE 01-26-2009 ROSEANNE NASOPHARYNG DON R ITIS 82487 HYPERTROPHY 01-26-2009 ROSEANNE PROSTATE DON R W/O UR OBST & OTH LUTS 08803 PAIN IN 12-28-2008 [facility] JOINT, SITE PHYSICIANS LAB UNSPECIFIED 56885 UNSPECIFIED 09-23-2008 ROSE[facility]NE ORCHITIS DON R AND EPIDIDYMITI S 6111 HYPERTROPHY 08-25-2008 ROSEANNE OF BREAST DON R V0382 NEED PROPH 08-25-2008 RO[facility]NE VACCINATION DON R AGAINST STREP PNEUMONE 74827 MASTODYNIA 08-20-2008 LEAH JESUS 75081 OTHER SIGN 08-17-2008 [facility] 6119 UNSPECIFIED 08-17-2008 [facility] BREAST [facility] DISORDER INC 31530 INSOMNIA 07-28-2008 ROSEANNE UNSPECIFIED DON R 3829 UNSPECIFIED 06-30-2008 ROSE[facility]NE OTITIS DON R MEDIA 7099 UNSPECIFIED 06-16-2008 MAIKOL JESUS LEAH OF SKIN&SUBCUT ANEOUS TISSUE 4279 UNSPECIFIED 05-19-2008 ROSEANNE CARDIAC DON R DYSRHYTHMIA 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 46025 ORTHOPNEA 11-27-2007 THIAGO CRONIN Allergies, Adverse Reactions, Alerts Type Drug Allergy Adverse Reaction to Substance Substance Reaction Severity Codeine Unknown Unknown Medications Na ND Rx Da Fi Fi Am Da Di Ph RX Ph St me C No te ll ll ou ys ag ar # ys at rm s nt no ma ic us Or Da si cy ia de te s n re d PA 51 01 0 No NT 07 -2 OP 90 7- Lo RA 05 20 ng ZO 12 14 er LE 0 Ac SO ti D ve DR 40 MG TA B 63 01 0 No PI 73 -2 RI 90 7- Lo N 43 20 ng 81 40 14 er 1 MG Ac ti CH ve EW AB LE TA BL ET SY 00 01 0 No NT 07 -2 HR 46 7- Lo OI 62 20 ng D 41 14 er 10 1 0 Ac MC ti G ve TA BL ET FU 51 01 0 No RO 07 -2 SE 90 7- Lo DE 07 20 ng DE 32 14 er 0 40 Ac ti MG ve TA BL ET Po 00 01 0 No ta 24 -2 ss 50 7- Lo iu 05 20 ng m 80 14 er Ch 1 lo Ac ri ti de ve 20 ME Q Ta bl e DI 00 01 0 No GO 52 -2 X 71 7- Lo 25 32 20 ng 0 50 14 er MC 1 G Ac TA ti BL ve ET LO 00 01 0 No VE 07 -2 NO 50 7- Lo X 62 20 ng 80 28 14 er 1 MG Ac /0 ti .8 ve ML SY RI NG E Sa 63 01 1 No li 80 -2 ne 70 6- Lo 10 20 ng Fl 07 14 er us 5 h Ac 10 ti ML ve Sy ri ng e TR 65 01 1 No AM 16 -2 AD 20 6- Lo OL 62 20 ng 71 14 er HC 0 L Ac 50 ti ve MG TA BL ET CL 51 01 1 No ON 07 -2 AZ 90 6- Lo EP 88 20 ng AM 22 14 er 1 0 Ac MG ti ve TA BL ET PA 51 01 0 No NT 07 -2 OP 90 6- Lo RA 05 20 ng ZO 12 14 er LE 0 Ac SO ti D ve DR 40 MG TA B 63 01 0 No PI 73 -2 RI 90 6- Lo N 43 20 ng 81 40 14 er 1 MG Ac ti CH ve EW AB LE TA BL ET ME 51 01 0 No TO 07 -2 WI 90 6- Lo OL 80 20 ng OL 12 14 er 0 TA Ac RT ti RA ve TE 50 MG TA B CO 00 01 0 No UM 05 -2 AD 60 6- Lo IN 17 20 ng 5 27 14 er 0 MG Ac ti TA ve BL ET TA 51 01 1 No MS 07 -2 UL 90 6- Lo OS 29 20 ng IN 42 14 er 0 HC Ac L ti 0. ve 4 MG CA PS UL E WI 51 01 1 No AV 07 -2 90 6- Lo TA 78 20 ng TI 22 14 er N 0 SO Ac DI ti UM ve 40 MG TA B 16 01 0 No PI 10 -1 RI 30 5- Lo N 35 20 ng EC 60 14 er 9 81 Ac ti MG ve TA BL ET CL 51 01 0 No OP 07 -1 ID 90 5- Lo OG 55 20 ng RE 72 14 er L 0 75 Ac ti MG ve TA BL ET SY 00 01 0 No NT 07 -1 HR 46 5- Lo OI 62 20 ng D 41 14 er 10 1 0 Ac MC ti G ve TA BL ET LO 00 01 0 No VE 07 -1 NO 50 5- Lo X 62 20 ng 80 28 14 er 1 MG Ac /0 ti .8 ve ML SY RI NG E Sa 63 01 1 No li 80 -1 ne 70 4- Lo 10 20 ng Fl 07 14 er us 5 h Ac 10 ti ML ve Sy ri ng e GI 12 01 0 No 32 -1 CO 22 4- Lo CK 22 20 ng TA 22 14 er IL 2 Ac 60 ti ML ve UD C PL 63 01 0 No AV 65 -1 IX 31 4- Lo 33 20 ng 30 20 14 er 0 2 MG Ac ti TA ve BL ET ME 51 01 0 No TO 07 -1 WI 90 4- Lo OL 80 20 ng OL 12 14 er 0 TA Ac RT ti RA ve TE 50 MG TA B LI 00 01 1 No PI 07 -1 TO 10 4- Lo R 15 20 ng 40 74 14 er 0 MG Ac ti TA ve BL ET CL 51 01 1 No ON 07 -1 AZ 90 4- Lo EP 88 20 ng AM 22 14 er 1 0 Ac MG ti ve TA BL ET LO 00 01 1 No VE 07 -1 NO 52 4- Lo X 91 20 ng 12 20 14 er 0 2 MG Ac /0 ti .8 ve ML SY RI NG E TA 51 01 1 No MS 07 -1 UL 90 4- Lo OS 29 20 ng IN 42 14 er 0 HC Ac L ti 0. ve 4 MG CA PS UL E CL 00 10 12 02 [address] Ac ON 37 -1 -3 .0 L- 80 EP ti AZ 81 2- 1- 00 MA 38 HE ve EP 91 20 20 RT 2 NS AM 20 09 09 1 1 PH DO AR N MG MA R CY TA BL #5 ET 91 CL 00 10 12 01 [address] Ac ON 37 -1 -0 .0 L- 80 EP ti AZ 81 2- 3- 00 MA 38 HE ve EP 91 20 20 RT 2 NS AM 20 09 09 1 1 PH DO AR N MG MA R CY TA BL #5 ET 91 CL 00 10 10 00 [address] Ac ON -2 .0 L- 80 EP ti AZ 30 2- 2- 00 MA 38 HE ve EP 83 20 20 RT 2 NS AM 30 09 09 1 1 PH DO AR N MG MA R CY TA BL #5 ET 91 CL 00 05 08 02 [address] Ac ON -2 .0 L- 76 EP ti AZ 30 5- 7- 00 MA 67 HE ve EP 83 20 20 RT 8 NS AM 30 09 09 1 1 PH DO AR N MG MA R CY TA BL #5 ET 91 CL 00 05 07 01 [address] Ac ON -0 .0 L- 76 EP ti AZ 30 5- 2- 00 MA 67 HE ve EP 83 20 20 RT 8 NS AM 30 09 1 1 PH DO AR N MG MA R CY TA BL #5 ET 91 CL 00 05 05 00 [address] Ac ON -2 .0 L- 76 EP ti AZ 30 5- 1- 00 MA 67 HE ve EP 83 20 20 RT 8 NS AM 30 09 09 1 1 PH DO AR N MG MA R CY TA BL #5 ET 91 CL 00 12 04 02 [address] Ac ON -2 .0 L- 73 EP ti AZ 30 0- 3- 00 MA 23 HE ve EP 83 20 20 RT 9 NS AM 30 08 09 1 1 PH DO AR N MG MA R CY TA BL #5 ET 91 CL 00 12 02 01 [address] Ac ON -2 .0 L- 73 EP ti AZ 30 0- 6- 00 MA 23 HE ve EP 83 20 20 RT 9 NS AM 30 08 09 1 1 PH DO AR N MG MA R CY TA BL #5 ET 91 CL 00 12 02 01 [address] Ac ON 1 .0 L- EP ti AZ 30 0- 2- 00 MA 23 HE ve EP 83 20 20 RT 9 NS AM 30 08 09 1 1 PH DO AR N MG MA R CY TA BL #5 ET 91 CL 00 12 [address] Ac ON -1 .0 L- 73 EP ti AZ 30 0- 5- 00 MA 23 HE ve EP 83 20 20 RT 9 NS AM 30 08 09 1 1 PH DO AR N MG MA R CY TA BL #5 ET 91 CL 00 08 12 02 [address] Ac ON -0 .0 L- 70 EP ti AZ 30 7 4- 00 MA 38 HE ve EP 83 20 20 RT 8 NS AM 30 08 08 1 1 PH DO AR N MG MA R CY TA BL #5 ET 91 CL 00 08 10 [address] Ac ON 2 .0 L- EP ti AZ 30 7 3 MA 38 HE ve EP 83 20 20 RT 8 NS AM 30 08 08 1 1 PH DO AR N MG MA R CY TA BL #5 ET 91 CL 00 08 09 [address] Ac ON .0 L- EP ti AZ 30 7 MA 38 HE ve EP 83 20 20 RT 8 NS AM 30 08 08 1 1 PH DO AR N MG MA R CY TA BL #5 ET 91 CL 00 07 08 00 [address] Ac ON 0 .0 L- EP ti AZ 30 1 MA 43 HE ve EP 83 20 20 RT 0 NS AM 30 08 08 1 1 PH DO AR N MG MA R CY TA BL #5 ET 91 CL 00 07 07 00 [address] Ac ON -1 .0 L- 69 EP ti AZ 30 1 7- MA 43 HE ve EP 83 20 20 RT 0 NS AM 30 08 08 1 1 PH DO AR N MG MA R CY TA BL #5 ET 91 CL 00 02 06 02 90 30 [place] 44 No Ac ON -0 .0 L- t ti AZ 30 1 5- MA 18 Av ve EP 83 20 20 RT 6 ai AM 30 08 08 la 1 1 PH bl AR e MG MA CY TA BL #5 ET 91 CL 00 02 04 90 30 [place] 44 No Ac ON .0 L- 66 t ti AZ 30 1 MA 18 Av ve EP 83 20 20 RT 6 ai AM 30 08 08 la 1 1 PH bl AR e MG MA CY TA BL #5 ET 91 CL 00 02 03 00 90 30 [place] 44 No Ac ON 2 .0 L- 66 t ti AZ 30 1 6 MA 18 Av ve EP 83 20 20 RT 6 ai AM 30 08 08 la 1 1 PH bl AR e MG MA CY TA BL #5 ET 91 Immunization Name Date Rout CVX Reac Dose Comm Prov Is Faci e tion ent ider Refu lity Give sed n IIV3 - 141 BRAC No BRAC 8-20 PRINCE PRINCE VACC 10 CO CO INE HEAL HEAL SPLI TH TH T DEPA DEPA VIRU RTME RTME S NT NT 0.5 ML DOSA GE IM USE IIV3 - 141 STEP No STEP 3-20 HENS HENS VACC 09 , , INE DON DON SPLI R R T VIRU S 0.5 ML DOSA GE IM USE IIV3 - 141 STEP No STEP 1-20 HENS HENS VACC 08 , , INE DON DON SPLI R R T VIRU S 0.5 ML DOSA GE IM USE PPSV 10-2 33 STEP No STEP 23 1-20 HENS HENS VACC 08 , , INE DON DON 2 R R YRS OR OLDE R FOR SUBQ /IM USE Vital Signs 12-01-2013 11:59 Name Value Interpretat Reference Comment ion Range Body 98.4 [degF] Temperature BP 60 mm[Hg] Diastolic BP Systolic 139 mm[Hg] Heart 132 /min Rate/Pulse Respiratory 20 /min Rate 12-01-2013 08:26 Name Value Interpretat Reference Comment ion Range O2% 93 % 11-30-2013 05:13 Name Value Interpretat Reference Comment ion Range Height 165.10 cm Weight 73.199 kg Measured 11-30-2013 03:03 Name Value Interpretat Reference Comment ion Range Body 97.5 [degF] Temperature BP 70 mm[Hg] Diastolic BP Systolic 159 mm[Hg] Heart 70 /min Rate/Pulse O2% 95 % Respiratory 20 /min Rate Weight 0 [oz_av] Measured 11-19-2013 17:00 Name Value Interpretat Reference Comment ion Range Body 97.9 [degF] Temperature BP 78 mm[Hg] Diastolic BP Systolic 172 mm[Hg] Heart 81 /min Rate/Pulse Respiratory 20 /min Rate 11-19-2013 15:00 Name Value Interpretat Reference Comment ion Range O2% 91 % 11-18-2013 19:42 Name Value Interpretat Reference Comment ion Range Height 167.64 cm Weight 66.764 kg Measured 11-18-2013 12:45 Name Value Interpretat Reference Comment ion Range Body 98.5 [degF] Temperature BP 85 mm[Hg] Diastolic BP Systolic 161 mm[Hg] Heart 67 /min Rate/Pulse O2% 96 % Respiratory 22 /min Rate Weight 0 [oz_av] Measured Results Labs Lab Lab Date Result Refere Interp Status Commen Order Detail nces retati t Range on Hemoglobin.gastrointestinal [Presence] in Stool (2017 09:40) Hemoglo POSITIV NEG complet bin.gas 017 E ed trointe 09:40 stinal [Presen ce] in Stool --1st specime n TROPONIN I (12-01-2013 09:35) TROPONI 0.07 0.00-0. complet N I 014 ng/mL 06 ed 09:35 THYROID STIM HORMONE (12-01-2013 09:35) THYROID 10.20 0.358-3 complet STIM 014 uIU/ml .740 ed HORMONE 09:35 PROTIME/INR (12-01-2013 09:35) PROTHRO 18.4 9.9-11. complet MBIN 014 SECONDS 6 ed TIME 09:35 INR Bld 1.71 0.9-1.1 complet 014 UNK ed 09:35 COMPREHENSIVE METABOLIC PANEL (11-30-2013 03:35) Glucose 113 74-106 complet 014 mg/dL ed Bld-mCn 03:35 c BUN 19 7-18 complet Bld-mCn 014 mg/dL ed c 03:35 Creat 1.0 0.8-1.3 complet SerPl-m 014 mg/dL ed Cnc 03:35 Creat 63 50-200 complet Cl 014 ML/MIN ed predict 03:35 ed SerPl C-G-vRa te GFR/BSA 72 Greater complet .pred 014 ML/MIN than ed SerPl 03:35 60 Schwart z-vRate Sodium 137 136-145 complet SerPl-s 014 mmoL/L ed Cnc 03:35 Potassi 3.8 3.5-5.1 complet um 014 mmoL/L ed SerPl-s 03:35 Cnc Chlorid 102 98-107 complet e 014 mmoL/L ed SerPl-s 03:35 Cnc CO2 30 21.0-32 complet SerPl-s 014 mmoL/L .0 ed Cnc 03:35 Calcium 8.3 8.5-10. complet 014 mg/dL 1 ed SerPl-m 03:35 Cnc Prot 7.3 6.4-8.2 complet SerPl-m 014 gm/dL ed Cnc 03:35 Albumin 3.7 3.4-5.0 complet 014 gm/dL ed SerPl-m 03:35 Cnc Globuli 3.6 1.3-3.2 complet n 014 gm/dL ed Ser-mCn 03:35 c Albumin 1.0 UNK 1.1-1.8 complet /Glob 014 ed SerPl-m 03:35 Rto Bilirub 0.6 0.2-1.0 complet 014 mg/dL ed SerPl-m 03:35 Cnc AST 25 U/L 15-37 complet SerPl-c 014 ed Cnc 03:35 ALT 24 U/L 12-78 complet SerPl-c 014 ed Cnc 03:35 ALP 91 U/L 50-136 complet SerPl-c 014 ed Cnc 03:35 PROTIME/INR (11-30-2013 03:35) PROTHRO 16.8 9.9-11. complet MBIN 014 SECONDS 6 ed TIME 03:35 INR Bld 1.56 0.9-1.1 complet 014 UNK ed 03:35 CBC with AUTO DIFF (11-30-2013 03:35) WBC # 11-30-2 8.4 4.8-10. complet Bld 014 K/MM3 8 ed Auto 03:35 RBC # 01-26-2 4.89 4.6-6.2 complet Bld 014 M/mm3 ed Auto 03:35 Hgb 2 14.7 14.1-18 complet Bld-mCn 014 g/dL .0 ed c 03:35 Hct Fr 42.6 % 42.0-52 complet Bld 014 .0 ed 03:35 MCV RBC 87.0 fl 82.2-97 complet 014 .8 ed 03:35 MCH RBC 30.1 pg 27-31.2 complet Qn 014 ed Auto 03:35 MEAN 34.5 31.8-35 complet CORPUSC 014 g/dl .4 ed ULAR 03:35 HGB CONC RDW RBC 15.1 % 11.5-17 complet Auto 014 .5 ed 03:35 Platele 208 142-424 complet t Bld 014 K/mm3 ed Ql 03:35 Manual MEAN 7.3 fl 7.4-10. complet PLATELE 014 4 ed T 03:35 VOLUME Granulo 2 72.3 % 37.0-80 complet cytes 014 .0 ed Fr Bld 03:35 Auto LYMPH % 11-30-2 19.1 % 10-50 complet 014 ed 03:35 Monocyt 11-30-2 6.7 % 1.7-9.3 complet es Fr 014 ed Bld 03:35 Auto Eosinop 11-30-2 1.5 % 0.1-12. complet hil Fr 014 0 ed Bld 03:35 Auto Basophi 11-30-2 0.6 % 0.1-2.0 complet ls Fr 014 ed Bld 03:35 Auto Granulo 11-30-2 6.1 1.3-8.0 complet cytes # 014 K/mm3 ed Bld 03:35 Auto Lymphoc 11-30-2 1.6 0.7-4.5 complet ytes Fr 014 K/mm3 ed Bld 03:35 Auto Monocyt --2 0.6 0.1-1.0 complet es # 014 K/mm3 ed Bld 03:35 Auto Eosinop 11-30-2 0.1 0.0-0.4 complet hil # 014 K/mm3 ed Bld 03:35 Auto Basophi 0.1 0-0.2 complet ls # 014 K/MM3 ed Bld 03:35 Auto BASIC METABOLIC PANEL (11-19-2013 06:16) Glucose 102 74-106 complet 014 mg/dL ed Bld-mCn 06:16 c BUN 12 7-18 complet Bld-mCn 014 mg/dL ed c 06:16 Creat 1.1 0.8-1.3 complet SerPl-m 014 mg/dL ed Cnc 06:16 Creat 51 50-200 complet Cl 014 ML/MIN ed predict 06:16 ed SerPl C-G-vRa te GFR/BSA 65 Greater complet .pred 014 ML/MIN than ed SerPl 06:16 60 Schwart z-vRate Sodium 138 136-145 complet SerPl-s 014 mmoL/L ed Cnc 06:16 Potassi 3.8 3.5-5.1 complet um 014 mmoL/L ed SerPl-s 06:16 Cnc Chlorid 102 98-107 complet e 014 mmoL/L ed SerPl-s 06:16 Cnc CO2 30 21.0-32 complet SerPl-s 014 mmoL/L .0 ed Cnc 06:16 Calcium 8.4 8.5-10. complet 014 mg/dL 1 ed SerPl-m 06:16 Cnc PROTIME/INR (11-19-2013 06:16) PROTHRO 19.2 9.9-11. complet MBIN 014 SECONDS 6 ed TIME 06:16 INR Bld 1.78 0.9-1.1 complet 014 UNK ed 06:16 CBC with AUTO DIFF (11-19-2013 06:16) WBC # 11-19- 8.1 4.8-10. complet Bld 014 K/MM3 8 ed Auto 06:16 RBC # 5.28 4.6-6.2 complet Bld 014 M/mm3 ed Auto 06:16 Hgb 15.3 14.1-18 complet Bld-mCn 014 g/dL .0 ed c 06:16 Hct Fr 01-15-2 45.4 % 42.0-52 complet Bld 014 .0 ed 06:16 MCV RBC 86.0 fl 82.2-97 complet 014 .8 ed 06:16 MCH RBC 28.9 pg 27-31.2 complet Qn 014 ed Auto 06:16 MEAN 33.6 31.8-35 complet CORPUSC 014 g/dl .4 ed ULAR 06:16 HGB CONC RDW RBC 14.9 % 11.5-17 complet Auto 014 .5 ed 06:16 Platele 177 142-424 complet t Bld 014 K/mm3 ed Ql 06:16 Manual MEAN 7.2 fl 7.4-10. complet PLATELE 014 4 ed T 06:16 VOLUME Granulo 2 70.2 % 37.0-80 complet cytes 014 .0 ed Fr Bld 06:16 Auto LYMPH % 11-19-2 21.0 % 10-50 complet 014 ed 06:16 Monocyt 11-19-2 7.1 % 1.7-9.3 complet es Fr 014 ed Bld 06:16 Auto Eosinop 15-2 1.3 % 0.1-12. complet hil Fr 014 0 ed Bld 06:16 Auto Basophi 15-2 0.5 % 0.1-2.0 complet ls Fr 014 ed Bld 06:16 Auto Granulo 15-2 5.7 1.3-8.0 complet cytes # 014 K/mm3 ed Bld 06:16 Auto Lymphoc 15-2 1.7 0.7-4.5 complet ytes Fr 014 K/mm3 ed Bld 06:16 Auto Monocyt -15-2 0.6 0.1-1.0 complet es # 014 K/mm3 ed Bld 06:16 Auto Eosinop 15-2 0.1 0.0-0.4 complet hil # 014 K/mm3 ed Bld 06:16 Auto Basophi 15-2 0.0 0-0.2 complet ls # 014 K/MM3 ed Bld 06:16 Auto COMPREHENSIVE METABOLIC PANEL (11-18-2013 13:45) Glucose 96 74-106 complet 014 mg/dL ed Bld-mCn 13:45 c BUN 13 7-18 complet Bld-mCn 014 mg/dL ed c 13:45 Creat 1.1 0.8-1.3 complet SerPl-m 014 mg/dL ed Cnc 13:45 Creat 56 50-200 complet Cl 014 ML/MIN ed predict 13:45 ed SerPl C-G-vRa te GFR/BSA 65 Greater complet .pred 014 ML/MIN than ed SerPl 13:45 60 Schwart z-vRate Sodium 139 136-145 complet SerPl-s 014 mmoL/L ed Cnc 13:45 Potassi 3.8 3.5-5.1 complet um 014 mmoL/L ed SerPl-s 13:45 Cnc Chlorid 103 98-107 complet e 014 mmoL/L ed SerPl-s 13:45 Cnc CO2 29 21.0-32 complet SerPl-s 014 mmoL/L .0 ed Cnc 13:45 Calcium 8.5 8.5-10. complet 014 mg/dL 1 ed SerPl-m 13:45 Cnc Prot 8.0 6.4-8.2 complet SerPl-m 014 gm/dL ed Cnc 13:45 Albumin 4.0 3.4-5.0 complet 014 gm/dL ed SerPl-m 13:45 Cnc Globuli 4.0 1.3-3.2 complet n 014 gm/dL ed Ser-mCn 13:45 c Albumin 1.0 UNK 1.1-1.8 complet /Glob 014 ed SerPl-m 13:45 Rto Bilirub 0.8 0.2-1.0 complet 014 mg/dL ed SerPl-m 13:45 Cnc AST 28 U/L 15-37 complet SerPl-c 014 ed Cnc 13:45 ALT 24 U/L 30-65 complet SerPl-c 014 ed Cnc 13:45 ALP 91 U/L 50-136 complet SerPl-c 014 ed Cnc 13:45 LIPID PROFILE (11-18-2013 13:45) Cholest 11-18-2 129 Less complet 014 mg/dL than ed SerPl-m 13:45 200 Cnc HDLc 11-18-2 27.0 40-60 complet SerPl-m 014 MG/DL ed Cnc 13:45 LDLc 11-18-2 77.0 0-130 complet SerPl 014 mg/dL ed Calc-mC 13:45 nc VLDL 11-18-2 25.0 0-40 complet CHOLEST 014 UNK ed ISABEL 13:45 Trigl 11-18-2 125 30-200 complet SerPl-m 014 mg/dL ed Cnc 13:45 CBC with AUTO DIFF (11-18-2013 13:45) WBC # 11-18-2 7.0 4.8-10. complet Bld 014 K/MM3 8 ed Auto 13:45 RBC # 11-18-2 5.38 4.6-6.2 complet Bld 014 M/mm3 ed Auto 13:45 Hgb 11-18-2 15.6 14.1-18 complet Bld-mCn 014 g/dL .0 ed c 13:45 Hct Fr 2 46.5 % 42.0-52 complet Bld 014 .0 ed 13:45 MCV RBC 11-18-2 86.4 fl 82.2-97 complet 014 .8 ed 13:45 MCH RBC 11-18-2 29.0 pg 27-31.2 complet Qn 014 ed Auto 13:45 MEAN 2 33.5 31.8-35 complet CORPUSC 014 g/dl .4 ed ULAR 13:45 HGB CONC RDW RBC 11-18-2 15.3 % 11.5-17 complet Auto 014 .5 ed 13:45 Platele 2 170 142-424 complet t Bld 014 K/mm3 ed Ql 13:45 Manual MEAN 2 6.9 fl 7.4-10. complet PLATELE 014 4 ed T 13:45 VOLUME Granulo 11-18-2 69.1 % 37.0-80 complet cytes 014 .0 ed Fr Bld 13:45 Auto LYMPH % 2 22.8 % 10-50 complet 014 ed 13:45 Monocyt 11-18-2 6.0 % 1.7-9.3 complet es Fr 014 ed Bld 13:45 Auto Eosinop 14-2 1.5 % 0.1-12. complet hil Fr 014 0 ed Bld 13:45 Auto Basophi 14-2 0.6 % 0.1-2.0 complet ls Fr 014 ed Bld 13:45 Auto Granulo 14-2 4.8 1.3-8.0 complet cytes # 014 K/mm3 ed Bld 13:45 Auto Lymphoc 14-2 1.6 0.7-4.5 complet ytes Fr 014 K/mm3 ed Bld 13:45 Auto Monocyt 14-2 0.4 0.1-1.0 complet es # 014 K/mm3 ed Bld 13:45 Auto Eosinop 14-2 0.1 0.0-0.4 complet hil # 014 K/mm3 ed Bld 13:45 Auto Basophi 14-2 0.0 0-0.2 complet ls # 014 K/MM3 ed Bld 13:45 Auto Procedures Procedure DOS Code Location Performer Comment RADIOLOGI 42458 RADIOLOGY DEZ II C EXAM 7 INC CHEST 2 VIEWS FRONTAL&L ATERAL ECG 02023 TEETEE KINGS[facility] ROUTINE 7 [facility] ECG INC INC W/LEAST 12 LDS TRCG ONLY W/O I&R ECG 88248 [facility] NEUS ROUTINE 7 [facility] W/LEAST CTR 12 LDS TRCG ONLY W/O I&R PROTHROMB 82174 [facility] NEUS IN TIME 7 [facility] CTR FEDERALLY G0467 [facility] 7 [facility] CTR CTR CENTER VISIT ESTAB PT FEDERALLY G0467 [facility] CO 7 [facility] CTR CTR CENTER VISIT ESTAB [place] ECG 71967 TEETEE KINGS[facility] ROUTINE 6 [facility] ECG INC INC W/LEAST 12 LDS TRCG ONLY W/O I&R ECHO 76195 TEETEE KINGSLEY TTHRC R-T 6 [facility] 2D INC INC W/WOM-MOD E COMPL SPEC&COLR D THERAPEUT 60995 [facility] IC 6 [facility] TIC/DX CTR CTR INJECTION SUBQ/IM RADEX 05362 RADIOLOGY RANJEET SPINE 6 INC CERVICAL 2 OR 3 VIEWS FEDERALLY G0467 [facility] 6 [facility] CTR CTR CENTER VISIT ESTAB PT FEDERALLY G0467 [facility] CO 6 [facility] CTR CTR CENTER VISIT ESTAB PT COLLECTIO 62153 [facility] N 6 [facility] CTR SPECIMEN FEDERALLY G0467 [facility] CO 6 [facility] CTR CTR CENTER VISIT ESTAB PT FEDERALLY G0467 [facility] CO 6 [facility] CTR CTR CENTER VISIT ESTAB PT COLLECTIO 52835 [facility] N VENOUS [address] [facility] VENIPUNCT CTR CTR URE FEDERALLY G0467 [facility] NEUS ANNABEL 6 [facility] CTR CENTER [place] ECG 42876 TEETEE TEETEE ROUTINE 6 [facility] ECG INC INC W/LEAST 12 LDS TRCG ONLY W/O I&R ECG 42485 CARDIOVAS CARDIOVAS ROUTINE 5 CULAR CULAR ECG CONSULTAN CONSULTAN W/LEAST TS O TS O 12 LDS I&R ONLY FEDERALLY G0467 [facility] NEUS ANNABEL 5 [facility] CTR CENTER VISIT ESTAB PT ECHO 90378 TEETEE KINGSLEY TTHRC R-T 5 [facility] 2D INC INC W/WOM-MOD E COMPL SPEC&COLR D ECG 80498 CARDIOVAS CARDIOVAS ROUTINE 5 CULAR CULAR ECG CONSULTAN CONSULTAN W/LEAST TS O TS O 12 LDS I&R ONLY RADEX 17462 RADIOLOGY RESENDEZ GRA ANKLE 5 INC COMPLETE MINIMUM 3 VIEWS RADEX 03908 [place] [facility] ANKLE 5 [facility] COMPLETE IMAGING MINIMUM 3 ASS VIEWS RADEX 97649 [place] [facility] FOOT 5 MEDICAL [place] COMPLETE IMAGING MINIMUM 3 ASS VIEWS ECG 86361 CARDIOVAS TAMMY ROUTINE 5 CULAR MAT ECG CONSULTAN W/LEAST TS O 12 LDS W/I&R ECG 89389 CARDIOVAS TAMMY ROUTINE 5 CULAR MAT ECG CONSULTAN W/LEAST TS O 12 LDS W/I&R ECG 64883 CARDIOVAS CARDIOVAS ROUTINE 4 CULAR CULAR ECG CONSULTAN CONSULTAN W/LEAST TS O TS O 12 LDS W/I&R ECHO 93378 [facility] TTHRC R-T 4 INC - INC - 2D W/WOM-MOD E COMPL SPEC&COLR D ECG 24790 CARDIOVAS CARDIOVAS ROUTINE 4 CULAR CULAR ECG CONSULTAN CONSULTAN W/LEAST TS O TS O 12 LDS W/I&R HOSPITAL G0463 TEETEE KINGSLEY OUTPATIEN 4 [facility] T CLIN INC INC VISIT ASSESS & MGMT PT CT THORAX 92786 TEETEE KINGSLEY W/O 4 [facility] CONTRAST INC INC MATERIAL 3D 11100 BELÉN BELÉN RENDERING 4 LILLIE LILLIE W/INTERP & POSTPROCE SS SUPERVISI ON RADEX 39560 TEETEE KINGSLEY RIBS UNI 4 [facility] W/POSTERO INC INC ANT CH MINIMUM 3 VIEWS HOSPITAL G0463 TEETEE KINGSLEY OUTPATIEN 4 [facility] T CLIN INC INC VISIT ASSESS & MGMT PT ECG 98120 JUAQUIN REZA ROUTINE 4 DEISY DEISY ECG W/LEAST 12 LDS I&R ONLY RADIOLOGI 63528 TEETEE KINGSLEY C EXAM 4 [facility] CHEST 2 INC INC VIEWS FRONTAL&L ATERAL ECG 42606 TEETEE KINGSLEY ROUTINE 4 [facility] ECG INC INC W/LEAST 12 LDS TRCG ONLY W/O I&R DUPLEX 90563 TEETEE KINGSLEY SCAN 4 [facility] EXTRACRAN INC INC IAL ART COMPL BI STUDY ECG 09364 TEETEE KINGSLEY ROUTINE 4 [facility] ECG INC INC W/LEAST 12 LDS TRCG ONLY W/O I&R RADIOLOGI 16974 TEETEE KINGSLEY C 4 [facility] EXAMINATI INC INC ON CHEST SINGLE VIEW FRONTAL ECG 83749 MARTA LOZANO ROUTINE 4 III BART III BART ECG W/LEAST 12 LDS I&R ONLY ECG 14981 WERO JR WERO JR ROUTINE 4 DWI DWI ECG W/LEAST 12 LDS I&R ONLY INCISION 99690 ROSEANNE CRONIN & 3 DON DON DRAINAGE ABSCESS SIMPLE/SI NGLE CATARACT 03498 [facility] E[facility] REMOVAL 2 NETWORK NETWORK INSERTION OF LENS CATARACT 44482 [facility] EYECARE REMOVAL 2 NETWORK NETWORK INSERTION OF LENS DETERMINA 68109 JANETTE SAVAGE TION 2 JAM JAM REFRACTIV E STATE OPHTHALMO 93529 JANETTE SAVAGE SCPY 2 JAM JAM EXTENDED RETINAL DRAWING I&R 1ST OPHTHALMO 26284 JANETTE SAVAGE SCPY 2 JAM JAM EXTENDED RETINAL DRAWING I&R 1ST NON-INVAS 19136 TEETEE KINGSLEY MEREDITH 2 [facility] PHYSIOLOG INC INC IC STUDY EXTREMITY 3 LEVLS ECHO 20420 FALLUJI FALLUJI TTHRC R-T 1 FAWN FAWN 2D W/WOM-MOD E COMPL SPEC&COLR D COLLECTIO 04050 COMBINED COMBINED N VENOUS 1 PHYSICIAN PHYSICIAN BLOOD S LA S LA VENIPUNCT URE PROTHROMB 75505 COMBINED COMBINED IN TIME 1 PHYSICIAN PHYSICIAN S LA S LA PROTHROMB 71654 COMBINED COMBINED IN TIME 1 PHYSICIAN PHYSICIAN S LA S LA COLLECTIO 83171 COMBINED COMBINED N VENOUS 1 PHYSICIAN PHYSICIAN BLOOD S LA S LA VENIPUNCT URE ADMINISTR G0008 BRACKEN BRACKEN ATION OF 1 [facility] INFLUENZA VIRUS DEPARTMEN DEPARTMEN VACCINE T T INFLUENZA Q2036 BRACKEN BRACKEN VACC 1 [facility] SPLIT VIRUS 3 DEPARTMEN DEPARTMEN YRS & > T T IM FLULAVAL PROTHROMB 17640 COMBINED COMBINED IN TIME 1 PHYSICIAN PHYSICIAN S LA S LA COLLECTIO 35205 COMBINED COMBINED N VENOUS 1 PHYSICIAN PHYSICIAN BLOOD S LA S LA VENIPUNCT URE COLLECTIO 39060 COMBINED COMBINED N VENOUS 1 PHYSICIAN PHYSICIAN BLOOD S LA S LA VENIPUNCT URE PROTHROMB 20498 COMBINED COMBINED IN TIME 1 PHYSICIAN PHYSICIAN S LA S LA PROTHROMB 28304 COMBINED COMBINED IN TIME 1 PHYSICIAN PHYSICIAN S LA S LA COMPREHEN 65622 COMBINED COMBINED SIVE 1 PHYSICIAN PHYSICIAN METABOLIC S LA S LA PANEL LIPID 93286 COMBINED COMBINED PANEL 1 [place] [address] COMBINED COMBINED THYROID 1 PHYSICIAN PHYSICIAN STIMULATI S LA S LA NG HORMONE TSH COLLECTIO 24716 COMBINED COMBINED N VENOUS 1 PHYSICIAN PHYSICIAN BLOOD S LA S LA VENIPUNCT URE PROSTATE G0103 COMBINED COMBINED CANCER 1 PHYSICIAN PHYSICIAN SCREENING S LA S LA ; PSA TEST PROTHROMB 44381 COMBINED COMBINED IN TIME 1 PHYSICIAN PHYSICIAN S LA S LA PROTHROMB 81709 COMBINED COMBINED IN TIME 1 PHYSICIAN PHYSICIAN S LA S LA COLLECTIO 89142 COMBINED COMBINED N VENOUS 1 PHYSICIAN PHYSICIAN BLOOD S LA S LA VENIPUNCT URE COLLECTIO 32641 COMBINED COMBINED N VENOUS 1 PHYSICIAN PHYSICIAN BLOOD S LA S LA VENIPUNCT URE PROTHROMB 28102 COMBINED COMBINED IN TIME 1 PHYSICIAN PHYSICIAN S LA S LA RADIOLOGI 33087 CRONIN CRONIN C 0 DON DON EXAMINATI ON CHEST SINGLE VIEW FRONTAL PROTHROMB 94246 COMBINED COMBINED IN TIME 0 PHYSICIAN PHYSICIAN S LA S LA COLLECTIO 01505 COMBINED COMBINED N VENOUS 0 PHYSICIAN PHYSICIAN BLOOD S LA S LA VENIPUNCT URE COLLECTIO 63916 COMBINED COMBINED N VENOUS 0 PHYSICIAN PHYSICIAN [place] [address] COMBINED COMBINED THYROID 0 PHYSICIAN PHYSICIAN STIMULATI S LA S LA NG HORMONE TSH LIPID 77976 COMBINED COMBINED PANEL 0 PHYSICIAN PHYSICIAN S LA S LA PROTHROMB 42687 COMBINED COMBINED IN TIME 0 PHYSICIAN PHYSICIAN S LA S LA COMPREHEN 91483 COMBINED COMBINED SIVE 0 PHYSICIAN PHYSICIAN METABOLIC S LA S LA PANEL IIV3 41128 BRACKEN BRACKEN VACCINE 0 [facility] CO HEALTH SPLIT VIRUS 0.5 DEPARTMEN DEPARTMEN ML T T DOSAGE IM USE ADMINISTR G0008 BRACKEN BRACKEN ATION OF 0 [facility] CO HEALTH INFLUENZA VIRUS DEPARTMEN DEPARTMEN VACCINE T T OPHTH 46147 [facility] 0 XM&EVAL COMPRE NEW PT 1/> VST PROTHROMB 69347 COMBINED COMBINED IN TIME 0 PHYSICIAN PHYSICIAN S LA S LA COLLECTIO 41930 COMBINED COMBINED N VENOUS 0 PHYSICIAN PHYSICIAN BLOOD S LA S LA VENIPUNCT URE COLLECTIO 16273 COMBINED COMBINED N VENOUS 0 PHYSICIAN PHYSICIAN BLOOD S LA S LA VENIPUNCT URE PROTHROMB 22721 COMBINED COMBINED IN TIME 0 PHYSICIAN PHYSICIAN S LA S LA PROTHROMB 48557 COMBINED COMBINED IN TIME 0 PHYSICIAN PHYSICIAN S LAB S LAB COLLECTIO 77630 COMBINED COMBINED N VENOUS 0 PHYSICIAN PHYSICIAN BLOOD S LAB S LAB VENIPUNCT URE COLLECTIO 58842 COMBINED COMBINED N VENOUS 0 PHYSICIAN PHYSICIAN BLOOD S LAB S LAB VENIPUNCT URE PROTHROMB 43975 COMBINED COMBINED IN TIME 0 PHYSICIAN PHYSICIAN S LAB S LAB PROTHROMB 02412 COMBINED COMBINED IN TIME 0 PHYSICIAN PHYSICIAN S LAB S LAB COLLECTIO 36175 COMBINED COMBINED N VENOUS 0 PHYSICIAN PHYSICIAN BLOOD S LAB S LAB VENIPUNCT URE BLOOD 04772 COMBINED COMBINED COUNT 0 PHYSICIAN PHYSICIAN COMPLETE S LAB S LAB AUTO&AUTO DIFRNTL WBC ECHO 83523 TEETEE KINGSLEY TTHRC R-T 0 [facility] 2D INC INC W/WOM-MOD E COMPL SPEC&COLR D XTRNL ECG 78366 TEETEE KINGSLEY & 48 HR 0 [facility] RECORDING INC INC EXTERNAL 41026 TEETEE KINGSLEY ECG 0 [facility] SCANNING INC INC ANALYSIS REPORT XTRNL ECG 57762 TEETEE CONTEH, 0 [facility] S RHYTHM PROF SERV W/I&R UP TO 48 HRS COMPREHEN 32677 COMBINED COMBINED SIVE 0 PHYSICIAN PHYSICIAN METABOLIC S LAB S LAB PANEL PROTHROMB 59402 COMBINED COMBINED IN TIME 0 PHYSICIAN PHYSICIAN S LAB S LAB LIPID 57758 COMBINED COMBINED PANEL 0 PHYSICIAN [place] [address] COMBINED COMBINED THYROID 0 PHYSICIAN PHYSICIAN STIMULATI S LAB S LAB NG HORMONE TSH COLLECTIO 87660 COMBINED COMBINED N VENOUS 0 PHYSICIAN PHYSICIAN BLOOD S LAB S LAB VENIPUNCT URE BLOOD 11810 COMBINED COMBINED COUNT 0 PHYSICIAN PHYSICIAN COMPLETE S LAB S LAB AUTO&AUTO DIFRNTL WBC COLLECTIO 52559 COMBINED COMBINED N VENOUS 0 PHYSICIAN PHYSICIAN BLOOD S LAB S LAB VENIPUNCT URE PROTHROMB 00180 COMBINED COMBINED IN TIME 0 PHYSICIAN PHYSICIAN S LAB S LAB PROTHROMB 67685 COMBINED COMBINED IN TIME 0 PHYSICIAN PHYSICIAN S LAB S LAB COLLECTIO 85814 COMBINED COMBINED N VENOUS 0 PHYSICIAN PHYSICIAN BLOOD S LAB S LAB VENIPUNCT URE COLLECTIO 74449 COMBINED COMBINED N VENOUS 0 PHYSICIAN PHYSICIAN BLOOD S LAB S LAB VENIPUNCT URE PROTHROMB 42599 COMBINED COMBINED IN TIME 0 PHYSICIAN PHYSICIAN S LAB S LAB PROTHROMB 80746 COMBINED COMBINED IN TIME 0 PHYSICIAN PHYSICIAN S LAB S LAB COLLECTIO 11352 COMBINED COMBINED N VENOUS 0 PHYSICIAN PHYSICIAN BLOOD [place] [address] COMBINED COMBINED THYROID 9 PHYSICIAN PHYSICIAN STIMULATI S LAB S LAB NG HORMONE TSH CREATININ 96548 COMBINED COMBINED E OTHER 9 PHYSICIAN PHYSICIAN SOURCE S LAB S LAB COLLECTIO 28325 COMBINED COMBINED N VENOUS 9 PHYSICIAN PHYSICIAN BLOOD S LAB S LAB VENIPUNCT URE LIPID 48122 COMBINED COMBINED PANEL 9 PHYSICIAN PHYSICIAN S LAB S LAB ALBUMIN 29442 COMBINED COMBINED URINE 9 PHYSICIAN PHYSICIAN MICROALBU S LAB S LAB MIN QUANTIATI VE COMPREHEN 51978 COMBINED COMBINED SIVE 9 PHYSICIAN PHYSICIAN METABOLIC S LAB S LAB PANEL HEMOGLOBI 33852 COMBINED COMBINED N 9 PHYSICIAN PHYSICIAN GLYCOSYLA S LAB S LAB JEFFY A1C PROTHROMB 34625 COMBINED COMBINED IN TIME 9 PHYSICIAN PHYSICIAN S LAB S LAB COLLECTIO 16761 COMBINED COMBINED N VENOUS 9 PHYSICIAN PHYSICIAN BLOOD S LAB S LAB VENIPUNCT URE RADEX 60988 CRONIN, CRONIN, SPINE 9 DON R DON R LUMBOSACR AL MINIMUM 4 VIEWS COLLECTIO 40002 COMBINED COMBINED N VENOUS 9 PHYSICIAN PHYSICIAN BLOOD S LAB S LAB VENIPUNCT URE PROTHROMB 09062 COMBINED COMBINED IN TIME 9 PHYSICIAN PHYSICIAN S LAB S LAB PROTHROMB 30062 COMBINED COMBINED IN TIME 9 PHYSICIAN PHYSICIAN S LAB S LAB ADMINISTR G0008 ROSEANNE CRONIN, ATION OF 9 DON R DON R INFLUENZA VIRUS VACCINE COLLECTIO 17966 COMBINED COMBINED N VENOUS 9 PHYSICIAN PHYSICIAN BLOOD S LAB S LAB VENIPUNCT URE IIV3 81994 ROSEANNE CRONIN, VACCINE 9 DON R DON R SPLIT VIRUS 0.5 ML DOSAGE IM USE COLLECTIO 53582 COMBINED COMBINED N VENOUS 9 PHYSICIAN PHYSICIAN BLOOD S LAB S LAB VENIPUNCT URE PROTHROMB 19472 COMBINED COMBINED IN TIME 9 PHYSICIAN PHYSICIAN S LAB S LAB PROTHROMB 97696 COMBINED COMBINED IN TIME 9 PHYSICIAN PHYSICIAN S LAB S LAB COLLECTIO 73604 COMBINED COMBINED N VENOUS 9 PHYSICIAN PHYSICIAN BLOOD S LAB S LAB VENIPUNCT URE COLLECTIO 70914 COMBINED COMBINED N VENOUS 9 PHYSICIAN PHYSICIAN BLOOD S LAB S LAB VENIPUNCT URE PROTHROMB 90964 COMBINED COMBINED IN TIME 9 PHYSICIAN PHYSICIAN S LAB S LAB PROTHROMB 46008 COMBINED COMBINED IN TIME 9 PHYSICIAN PHYSICIAN S LAB S LAB COLLECTIO 29578 COMBINED COMBINED N VENOUS 9 PHYSICIAN PHYSICIAN BLOOD S LAB S LAB VENIPUNCT URE COLLECTIO 59250 COMBINED COMBINED N VENOUS 9 PHYSICIAN PHYSICIAN BLOOD S LAB S LAB VENIPUNCT URE PROTHROMB 21634 COMBINED COMBINED IN TIME 9 PHYSICIAN PHYSICIAN S LAB S LAB PROTHROMB 22428 COMBINED COMBINED IN TIME 9 PHYSICIAN PHYSICIAN S LAB S LAB RADIOLOGI 41476 ROSEANNE CRONIN C 9 DON R DON R EXAMINATI ON CHEST SINGLE VIEW FRONTAL ECG 06514 ROSEANNE CRONIN ROUTINE 9 DON R DON R ECG W/LEAST 12 LDS W/I&R COLLECTIO 78884 COMBINED COMBINED N VENOUS 9 PHYSICIAN PHYSICIAN BLOOD S LAB S LAB VENIPUNCT URE COLLECTIO 06589 COMBINED COMBINED N VENOUS 9 PHYSICIAN PHYSICIAN BLOOD S LAB S LAB VENIPUNCT URE PROTHROMB 69532 COMBINED COMBINED IN TIME 9 PHYSICIAN PHYSICIAN S LAB S LAB COMPREHEN 48843 COMBINED COMBINED SIVE 9 PHYSICIAN PHYSICIAN METABOLIC S LAB S LAB PANEL PROTHROMB 35044 COMBINED COMBINED IN TIME 9 PHYSIC[place] [address] COMBINED COMBINED PROSTATE 9 PHYSICIAN PHYSICIAN SPECIFIC [place] [address] COMBINED COMBINED THYROID 9 PHYSICIAN PHYSICIAN STIMULATI S LAB S LAB NG HORMONE TSH LIPID 80206 COMBINED COMBINED PANEL 9 PHYSICIAN PHYSICIAN S LAB S LAB COLLECTIO 22591 COMBINED COMBINED N VENOUS 9 PHYSICIAN PHYSICIAN BLOOD S LAB S LAB VENIPUNCT URE BLOOD 48597 COMBINED COMBINED COUNT 9 PHYSICIAN PHYSICIAN COMPLETE S LAB S LAB AUTO&AUTO DIFRNTL WBC COLLECTIO 09310 COMBINED COMBINED N VENOUS 9 PHYSICIAN PHYSICIAN BLOOD S LAB S LAB VENIPUNCT URE PROTHROMB 83598 COMBINED COMBINED IN TIME 9 PHYSICIAN PHYSICIAN S LAB S LAB PROTHROMB 67008 COMBINED COMBINED IN TIME 8 PHYSICIAN PHYSICIAN S LAB S LAB COLLECTIO 38708 COMBINED COMBINED N VENOUS 8 PHYSICIAN PHYSICIAN BLOOD S LAB S LAB VENIPUNCT URE PROTHROMB 34773 COMBINED COMBINED IN TIME 8 PHYSICIAN PHYSICIAN S LAB S LAB COLLECTIO 94453 COMBINED COMBINED N VENOUS 8 PHYSICIAN PHYSICIAN BLOOD S LAB S LAB VENIPUNCT URE PROTHROMB 82065 COMBINED COMBINED IN TIME 8 PHYSICIAN PHYSICIAN S LAB S LAB ADMINISTR G0008 ROSEANNE CRONIN, ATION OF 8 DON R DON R INFLUENZA VIRUS VACCINE COLLECTIO 76620 COMBINED COMBINED N VENOUS 8 PHYSICIAN PHYSICIAN BLOOD S LAB S LAB VENIPUNCT URE IIV3 89935 ROSEANNE CRONIN, VACCINE 8 DON R DON R SPLIT VIRUS 0.5 ML DOSAGE IM USE [id number] 12531 ROSEANNE CRONIN, VACCINE 2 8 DON R DON R YRS OR OLDER FOR SUBQ/IM USE ADMINISTR G0009 ROSEANNE CRONIN, ATION OF 8 DON R DON R PNEUMOCOC MAYCO VACCINE US BREAST 37054 TEETEE KINGSLEY REAL 8 [facility] TIME INC INC W/IMAGE DOCUMENTA TION MAMMOGRAP 63445 [facility] 8 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 S ROXANNE 560[address] EDIN JESUS SKIN 8 , LEAH , LEAH LESION 1 F/E/E/N/L /M DIAM 0.5 CM/< COMPREHEN 15844 TEETEE KINGSLEY SIVE 8 [facility] METABOLIC INC INC PANEL COLLECTIO 09207 TEETEE KINGSLEY N VENOUS 8 [facility]OD [facility] INC VENIPUNCT URE Encounters Encounter Start End Date Code Location Performer Type Date OFFICE 66882 [facility] MINUTES OFFICE 34070 [facility] 15 CTR MINUTES OFFICE 31846 [facility] 15 CTR MINUTES OFFICE 12102 [facility] OUT[facility] 7 7 PHYSICIAN T VISIT S GROUP 25 MINUTES [facility]OSPITAL TEETEE - 7 7 [facility] T OFFICE 64335 [facility] 7 [facility] T [facility] 15 CTR MINUTES OFFICE 75760 [facility] 7 7 [facility] T [facility] 15 CTR MINUTES OFFICE 46865 [facility] 7 7 [facility] T V[facility] 15 CTR MINUTES [facility]OSPITAL TEETEE - 6 6 [facility] T OFFICE 62858 [facility] 6 6 PHYSICIAN T VISIT S GROUP 25 MINUTES HOSPITAL TEETEE - 6 6 [facility]PAT[facility] INC T OFFICE 12304 [facility] 6 6 [facility]ILY T VIS[facility] 15 CTR MINUTES OFFICE 37836 [facility] 6 6 [facility] T V[facility] 15 CTR MINUTES OFFICE 03541 [facility] 6 6 [facility]ILY T VISIT HEALTH 15 CTR MINUTES OFFICE 56073 [facility] 6 6 [facility]ILY T VIS[facility] HEALTH 25 CTR MINUTES OFFICE 49721 [facility] 6 6 PHYSICIAN MAT T VISIT S GROUP 15 MINUTES HOSPITAL TEETEE - 6 6 [facility] INC T OFFICE 07623 [facility] 6 6 PHYSICIAN MAT T VISIT S GROUP 25 MINUTES HOSPITAL TEETEE - 5 5 [facility] OUTPATIEN INC T OFFICE 26636 [facility] 5 5 CULAR MAT T VISIT CONSULTAN 25 TS O MINUTES OFFICE 53140 [facility] OUT[facility] 5 5 CULAR MAT T VISIT CONSULTAN 25 TS O MINUTES HOSPITAL TEETEE - 4 4 [facility] TEETEE - 4 4 [facility] - [facility] T OFFICE 24319 JUAQUIN JIMENEZEY OUTPATIEN 4 4 [facility] 20 [facility] TEETEE - [facility] - [facility] T Inpatient IMP Teetee Hernández MD (IN) 4 03:36 4 12:40 [facility]ETEE - 4 4 [facility] Inpatient MINNIE Rviera MD (IN) 4 13:27 4 17:00 [facility] OFFICE 39556 CRONIN CRONIN OUTPATIEN 3 3 DON DON T VISIT 15 MINUTES [facility]OSP[facility] TEETEE - 2 2 [facility] T OFFICE 64029 [facility] FALL[facility] OUTPATIEN 2 2 [facility] FA[facility] T VISIT 25 MINUTES OFFICE 42866 CRONIN CRONIN OUTPATIEN 2 2 DON DON T VISIT 15 MINUTES [facility]OSPITAL TEETEE - 1 1 [facility] T OFFICE 40961 CR[facility]IN CRONIN OUTPATIEN 1 1 DON DON T VISIT 15 MINUTES OFFICE 90656 CRONIN CRONIN OUTPATIEN 1 1 DON DON T VISIT 15 MINUTES OFFICE 51447 [facility] 1 1 PHYSICIAN FAWN T VISIT S GROUP 25 MINUTES OFFICE 28253 [facility]ONIN CRONIN OUTPATIEN 1 1 DON DON T VISIT 15 MINUTES OFFICE 07921 [facility] 0 0 PHYSICIAN FAWN T VISIT S GROUP 25 MINUTES OFFICE 80192 CRONIN CRONIN OUTPATIEN 0 0 DON DON T VISIT 25 MINUTES OFFICE 97993 [facility]PAT[facility] 0 0 PHYSICIAN FAWN T VISIT S GROUP 25 MINUTES OFFICE 01643 [facility] CRONIN OUTPATIEN 0 0 DON DON T VISIT 15 MINUTES OFFICE 02682 [facility] CRONIN OUTPATIEN 0 0 DON DON T VISIT 15 MINUTES OFFICE 27893 CRONIN, CRONIN, OUTPATIEN 0 0 DON R DON R T VISIT 15 MINUTES OFFICE 11154 [facility], OUTPATIEN 0 0 PHYSICIAN EMMANUEL Roman T VISIT S GROUP 25 MINUTES [facility]OSP[facility] TEETEE - 0 0 [facility] TE[facility] - 0 0 [facility] OFF[facility] 29549 [facility] N[facility] OUTPATIEN 0 0 PHYSICIAN EMMANUEL Bryant VISIT S GROUP 25 MINUTES OFFICE 86326 [facility] CRONIN OUTPATIEN 0 0 DON R DON R T VISIT 15 MINUTES OFFICE 94235 [facility] CRONIN OUTPATIEN 0 0 DON R DON R T VISIT 15 MINUTES OFFICE 01876 [facility] CRONIN OUTPATIEN 9 9 DON R DON R T VISIT 15 MINUTES OFFICE 79242 [facility] CRONIN OUTPATIEN 9 9 DON R DON R T VISIT 15 MINUTES OFFICE 74284 [facility] CRONIN OUTPATIEN 9 9 DON R DON R T VISIT 15 MINUTES OFFICE 03204 [facility] CRONIN OUTPATIEN 9 9 DON R DON R T VISIT 15 MINUTES OFFICE 36926 [facility] CRONIN OUTPATIEN 9 9 DON R DON R T VISIT 15 MINUTES OFFICE 04353 [facility] CRONIN OUTPATIEN 8 8 DON R DON R T VISIT 15 MINUTES OFFICE 02019 ROSEANNE CRONIN OUTPATIEN 8 8 DON R DON R T VISIT 15 MINUTES OFFICE 24968 [facility] OUTPATIEN 8 8 , LEAH LYNN T VISIT 15 MINUTES [facility]OSP[facility] TEETEE - 8 8 [facility] T OFFICE 08913 [facility] CONSULTAT 8 8 , LEAH LYNN ION NEW/ESTAB PATIENT 40 MIN OFFICE 82971 CRONIN, CRONIN, OUTPATIEN 8 8 DON R DON R T VISIT 15 MINUTES [facility]ICE 23894 [facility] HE[facility] & NEZAR M T VISIT VASCULAR 25 ASSOC MINUTES OFFICE 54800 ROSEANNE CRONIN OUTPATIEN 8 8 DON R DON R T VISIT 15 MINUTES OFFICE 69110 ROSEANNE CRONIN OUTPATIEN 8 8 DON R DON R T VISIT 15 MINUTES OFFICE 60692 [facility] 8 8 HEART & NEZAR M T VISIT VASCULAR 25 ASSOC MINUTES OFFICE 08771 ROSEANNE CRONIN OUTPATIEN 8 8 DON R DON R T VISIT 15 MINUTES OFFICE 20201 ROSEANNE CRONIN OUTPATIEN 8 8 DON R DON R T VISIT 15 MINUTES [facility] - 8 8 [facility] T OFFICE 35169 ROSEANNE CRONIN OUTPATIEN 8 8 DON R DON R T VISIT 15 MINUTES OFFICE 64207 ROSEANNE CRONIN OUTPATIEN 8 8 DON R DON R T VISIT 15 MINUTES
--- OUTSIDE RECORDS SUMMARY | 2017-08-15 10:30 | External Medical Summary Rpt ---
Author Author , GRACY Organization GRACY Address Unknown Phone [email or web address] Providers Care Junior Bookkeeper Name Role Phone DEZ II, DEZ II Unavailable Unavailable RANJEET POLLACK Unavailable Unavailable Ramana Hernández MD, Unavailable Unavailable Ramana Hernández MD [facility] Unavailable Unavailable DEPARTMENT, [facility] Unavailable Unavailable DEPARTMENT, [facility] DE[facility] CARDIOVASCULAR Unavailable Unavailable CONSULTANTS O, [...] GURPREET WILSON CAMACHO, WILSON CAMACHO Unavailable Unavailable [facility], Unavailable Unavailable [facility] Unavailable Unavailable [facility], [facility] Un[facility], [facility] Un[facility] Unavailable [facility], [facility] DW[facility], [facility] [...] Unavailable TAMMY MAT, Unavailable Unavailable TAMMY MAT [employer] -, Unavailable Unavailable [employer] - Siddhartha Rivera MD, Unavailable Unavailable Siddhartha DAS, Unavailable Unavailable ROSEANNE CRONIN DON, Unavailable Unavailable ROSEANNE CRONIN, THIAGO R, Unavailable Unavailable ROSEANNE, DON R [facility] Unavailable Unavailable #[id number], [facility] WEHRMAN III BART, Unavailable Unavailable [...] CTR LIPID RICH PLAQUE E785 HYPERLIPIDE 05-01-2017 [facility] PHYSICIANS UNSPECIFIED GROUP I119 HYPERTENSIV 05-01-2017 [facility] E HEART PHYSICIANS DISEASE GROUP WITHOUT HEART FAILURE 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 05-01-2017 [facility] 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 ANGINA PECTORIS I4892 UNSPECIFIED 05-01-2017 [facility] ATRIAL PHYSICIANS FLUTTER GROUP R251 TREMOR 05-01-2017 [facility] UNSPECIFIED PHYSICIANS GROUP 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[facility] 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 E039 HYPOTHYROID 02-26-2017 [facility] ISM [facility] UNSPECIFIED HEALTH CTR I509 HEART 02-26-2017 [facility] FAILURE FAMILY UNSPECIFIED HEALTH CTR Z5181 ENCOUNTER 02-26-2017 [facility] FOR FAMILY THERAPEUTIC HEALTH CTR DRUG LEVEL MONITORING Z7901 CORRECTION 02-26-2017 [facility] CURRENT USE FAMILY OF HEALTH CTR ANTICOAGULA NTS Z760 ENCOUNTER 01-15-2017 [facility] FOR ISSUE FAMILY OF REPEAT HEALTH CTR PRESCRIPTIO N 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 10-24-2016 [facility] TRICUS[facility] INSUFFICIEN CY I371 NONRHEUMATI 10-24-2016 [facility] PULMONARY SERV [facility] INSUFFICIEN CY H24965 SPONDYLOSIS 09-12-2016 RADI[facility] W/O INC MYELOPATH/R ADICULOPATH [...] [facility] E079 DISORDER OF 05-02-2016 [facility] THYROID PHYSICIANS UNSPECIFIED GROUP B028 ZOSTER WITH 04-12-2016 [facility] OTHER FAMILY COMPLICATIO HEALTH CTR NS G250 ESSENTIAL 04-12-2016 [facility] TREMOR [facility] CTR I38 ENDOCARDITI 02-01-2016 [facility] S VALVE PHYSICIANS UNSPECIFIED GROUP G252 OTHER 10-27-2015 [facility] SPECIFIED FAMILY FORMS OF HEALTH CTR TREMOR I999 UNSPECIFIED 10-27-2015 [facility] DISORDER FAMILY OF HEALTH CTR CIRCULATORY SYSTEM M159 POLYOSTEOAR 10-27-2015 [facility] THRITIS FAMILY UNSPECIFIED HEALTH CTR 67542 UNSPEC HTN 08-03-2015 [facility] HEART LAR DISEASE CONSULTANTS WITHOUT O HEART FAIL 21956 COR 08-03-2015 [facility] ATHEROSLERO LAR UNSPEC CONSULTANTS TYPE VESSEL O PAMUNKEY/RUCHI T 02933 OTHER 08-03-2015 [facility] ENDOCARDITI LAR S VALVE CONSULTANTS UNSPECIFIED O 23997 ATRIAL 08-03-2015 [facility] FLUTTER LAR CONSULTANTS O 42879 EFFUSION OF 05-31-2015 [facility] ANKLE AND INC FOOT JOINT V714 OBSERVATION 05-31-2015 [facility] FOLLOWING INC OTHER ACCIDENT 28790 PAIN IN 05-22-2015 [place] [facility], [facility] FOOT 7295 PAIN IN 05-22-2015 [place] SOFT MEDICAL TISSUES OF IMAGING ASS LIMB 9597 INJURY 05-22-2015 [place] OTHER&UNSPE MEDICAL CIFIED KNEE IMAGING ASS LEG ANKLE&FOOT 2724 OTHER AND 05-03-2015 [facility] UNSPECIFIED LAR CONSULTANTS HYPERLIPIDE O BORA 74100 ATRIAL 05-03-2015 [facility] FIBRILLATIO LAR N CONSULTANTS O V5861 LONG-TERM 03-25-2014 [facility] (CURRENT) [facility] USE OF INC ANTICOAGULA NTS 5119 UNSPECIFIED 03-11-2014 [facility] PLEURAL LILLIE EFFUSION 5180 PULMONARY 03-11-2014 [facility] COLLAPSE LILLIE 56631 OTHER 03-11-2014 [facility] DISEASES OF LILLIE LUNG NOT ELSEWHERE CLASSIFIED 63765 SHORTNESS 03-11-2014 [place] OF BREATH [facility] INC 29735 CHEST PAIN 03-11-2014 [facility] UNSPECIFIED [facility] INC E8889 UNSPECIFIED 03-11-2014 [facility] FALL LILLIE 2449 UNSPECIFIED 03-04-2014 JUAQUIN DEISY HYPOTHYROID ISM 9221 CONTUSION 03-04-2014 [facility] OF CHEST [facility] WALL INC 4019 UNSPECIFIED 01-03-2014 [place] ESSENTIAL [facility] HYPERTENSIO INC N 4139 OTHER AND 01-03-2014 [place] UNSPECIFIED [facility] ANGINA INC PECTORIS 401.9 401.9 12-01-2013 [place] HYPERTENSIO [facility] NOS Hospital 410.72 410.72 AC 12-01-2013 [place] MYOCARD [facility] INFARCT,[facility] Hospital ENDO INFARCT,SUB SEQ EPISODE 427.31 427.31 12-01-2013 [place] ATRIAL [facility] FIBRILLATIO Hospital N 780.2 780.2 12-01-2013 [place] SYNCOPE AND [facility] Hospital 786.59 786.59 12-01-2013 [place] CHEST PAIN [facility] V43.3 V43.3 HEART 12-01-2013 [place] VALVE [facility] Hospital V45.09 V45.09 12-01-2013 [place] OTHER [facility] SPECIFIED Hospital CARDIAC DEVICE IN SITU V45.82 V45.82 12-01-2013 [place] [facility] CORON ANGIOPLASTY STATUS V58.61 V58.61 12-01-2013 [place] ANTICOAGULA [facility] NTS,LT,[facility] ENT USE V58.69 V58.69 OTH 12-01-2013 [place] MED,LT,[facility] ENT USE Hospital 56026 ACUT AK 11-30-2013 [place] SUBENDOCARD [facility] IAL INFARCT INC SUBSQT EPIS CARE 69195 OTHER CHEST 11-30-2013 [place] PAIN [facility] INC V4509 OTHER 11-30-2013 [place] SPECIFIED [facility] CARDIAC INC DEVICE IN SITU V4582 POSTSURG 11-30-2013 [place] PERCUT [facility] TRANSLUMINA INC [place] TALAMANTESPLSTY STS V5869 LONG-TERM 11-30-2013 [place] (CURRENT) [facility] USE OF INC OTHER MEDICATIONS 300.00 300.00 11-19-2013 [place] ANXIETY [facility] Hospital 410.71 410.71 AC 11-19-2013 [place] MYOCARDIAL [facility] INFARCT,SUB Hospital ENDO INFARCT,INI TIAL EPIS 413.9 413.9 11-19-2013 [place] ANGINA [facility] PECTORIS [facility] NEC/NOS 414.01 414.01 11-19-2013 [place] CORONARY [facility] OSIS OF [place] CORONARY VESSEL 00516 ACUT [place] 11-18-2013 [place] SUBENDOCARD DWI IAL INFARCT INIT EPIS CARE 03906 CORONARY 11-18-2013 [place] ATHEROSCLER DWI OSIS [place] CORONARY ARTERY 7062 SEBACEOUS 01-31-2013 [place] CYST DON 4149 UNSPECIFIED 11-18-2012 [facility] CHRONIC DON ISCHEMIC HEART DISEASE 87885 NUCLEAR 09-17-2012 [place] GURPREET SCLEROSIS 81217 VITREOUS 06-25-2012 [place] DEGENERATIO JAM N 25810 ATHEROSLERO 04-25-2012 [place] NATV ART MEDICAL EXTREM IMAGING ASS W/INTERMIT CLAUDICAT 09694 ATHEROSLERO 04-25-2012 [place]UNKEY [facility]ICAL [facility] EXTREMITIES W/REST PAIN 4439 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 [facility]ULAR [facility] DISEASE 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 45738 HEMATURIA 12-04-2011 [facility] UNSPECIFIED DON 7823 EDEMA 12-04-2011 [facility] DON 8472 LUMBAR 12-04-2011 [facility] SPRAIN AND DON STRAIN V7644 SPECIAL 09-01-2011 [facility] SCREENING PHYSICIANS MALIGNANT LA NEOPLASM OF PROSTATE V0481 NEED 07-14-2011 [facility] PROPHYLACTI HEALTH C DEPARTMENT VACCINATION &INOCULATIO N FLU 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[facility] VALVE PHYSICIANS DISORDERS GROUP 3668 OTHER 12-26-2010 [place] CATARACT DON 13243 HEMOPTYSIS 09-27-2010 [facility] UNSPECIFIED DON 9211 CONTUSION 08-08-2010 [facility] OF EYELIDS DON AND PERIOCULAR AREA 07462 DIAB W/O 07-15-2010 COMBIN[facility] COMP TYPE PHYSICIANS II/UNS NOT LA STATED UNCNTRL 41202 OTHER 02-07-2010 [facility] DYSPNEA AND [facility] RESPIRATORY PROF SERV ABNORMALITI ES 2720 PURE 01-18-2010 [place] HYPERCHOLES DON R TEROLEMIA 4011 ESSENTIAL 01-18-2010 [place] HYPERTENSIO DON R N, BENIGN 4659 ACUTE URIS 11-22-2009 RO[facility]NE OF DON R UNSPECIFIED SITE 19562 CONTUSION 07-28-2009 RO[facility] OF LOWER DON R LEG 496 CHRONIC 02-26-2009 [place] AIRWAY DON R OBSTRUCTION NEC V4581 POSTSURGICA 02-26-2009 ROSEANNE L DON R AORTOCORONA RY BYPASS STATUS 6019 UNSPECIFIED 01-28-2009 [facility] PHYSICIANS PROSTATITIS LAB 80875 ENDOCARDITI 01-26-2009 RO[facility] S VALVE DON R UNSPECIFIED UNSPECIFIED CAUSE 460 ACUTE 01-26-2009 [place] NASOPHARYNG DON R ITIS 21561 HYPERTROPHY 01-26-2009 [place] PROSTATE DON R W/O UR OBST & OTH LUTS 27611 PAIN IN 12-28-2008 [facility] JOINT, SITE PHYSICIANS LAB UNSPECIFIED 34973 UNSPECIFIED 09-23-2008 [place] ORCHITIS DON R AND EPIDIDYMITI S 6111 HYPERTROPHY 08-25-2008 RO[facility] OF BREAST DON R V0382 NEED PROPH 08-25-2008 [place] VACCINATION DON R AGAINST STREP PNEUMONE 38224 MASTODYNIA 08-20-2008 LEAH JESUS 66376 OTHER SIGN 08-17-2008 [facility] 6119 UNSPECIFIED 08-17-2008 [facility] BREAST [facility] DISORDER INC 26958 INSOMNIA 07-28-2008 [place] UNSPECIFIED DON R 3829 UNSPECIFIED 06-30-2008 [facility] OTITIS DON R MEDIA 7099 UNSPECIFIED 06-16-2008 AMIKOL JESUS LEAH OF SKIN&SUBCUT ANEOUS TISSUE 4279 UNSPECIFIED 05-19-2008 [facility] CARDIAC DON R DYSRHYTHMIA 3963 MITRAL 04-06-2008 [facility] VAL[facility] HEART & INSUFF&AORT VASCULAR IC VALVE ASSOC INSUFF 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 91004 ORTHOPNEA 11-27-2007 THIAGO CRONIN Allergies, Adverse Reactions, [...] RO 07 -2 SE 90 7- Lo AK 07 20 ng DE 32 14 er [...] 51 01 0 No TO 07 -2 TX 90 6- Lo OL 80 20 ng [...] ve 4 MG CA PS UL E TX 51 01 1 No AV 07 -2 [...] 51 01 0 No TO 07 -1 TX 90 4- Lo OL 80 20 ng [...] Procedure DOS Code Location Performer Comment RADIOLOGI 12042 RADIOLOGY DEZ II C EXAM 7 INC CHEST 2 VIEWS FRONTAL&L ATERAL ECG 00327 [facility] [place] ROUTINE 7 [facility] ECG INC INC W/LEAST 12 LDS TRCG ONLY W/O I&R ECG 86932 [place] NEUS ROUTINE 7 [facility] W/LEAST CTR 12 LDS TRCG ONLY W/O I&R PROTHROMB 01055 [facility] NEUS IN TIME 7 [facility] CTR FEDERALLY G0467 [facility] [address] [facility] CTR CENTER VISIT ESTAB PT FEDERALLY G0467 [facility] [address] [facility] [place] 52779 [facility] ROUTINE 6 [facility] ECG INC INC W/LEAST 12 LDS TRCG ONLY W/O I&R ECHO 36067 [facility] TTHRC R-T 6 [facility] 2D INC INC W/WOM-MOD E COMPL SPEC&COLR D THERAPEUT 38279 [facility] IC 6 [facility] TIC/DX CTR CTR INJECTION SUBQ/IM RADEX 11899 RADIOLOGY RANJEET SPINE 6 INC CERVICAL 2 OR 3 VIEWS FEDERALLY G0467 [facility] [address] [facility] CTR CTR CENTER VISIT ESTAB PT FEDERALLY G0467 [facility] [address] [facility] CTR CTR CENTER VISIT ESTAB PT COLLECTIO 63864 [facility] N 6 [facility] BLOOD CTR CTR SPECIMEN FEDERALLY G0467 [facility] [address] [facility] CTR CTR CENTER VISIT ESTAB PT FEDERALLY G0467 [facility] CO [address] [facility] CTR CTR CENTER VISIT ESTAB PT COLLECTIO 37316 [facility] N VENOUS 6 [facility] VENIPUN[facility] CTR CTR URE FEDERALLY G0467 [facility] NEUS ANNABEL 6 [facility] CTR CENTER VISIT ESTAB PT ECG 12744 [facility]ETEE ROUTINE 6 [facility] ECG INC INC W/LEAST 12 LDS TRCG ONLY W/O I&R ECG 08504 CARDIOVAS CARDIOVAS ROUTINE 5 CULAR CULAR ECG CONSULTAN CONSULTAN W/LEAST TS O TS O 12 LDS I&R ONLY FEDERALLY G0467 [place] NEUS ANNABEL 5 [facility] CTR CENTER VISIT ESTAB PT ECHO 50595 [facility] TTHRC R-T 5 [facility] 2D INC INC W/WOM-MOD E COMPL SPEC&COLR D ECG 47026 CARDIOVAS CARDIOVAS ROUTINE 5 CULAR CULAR ECG CONSULTAN CONSULTAN W/LEAST TS O TS O 12 LDS I&R ONLY RADEX 38306 RADIOLOGY RESENDEZ GRA ANKLE 5 INC COMPLETE MINIMUM 3 VIEWS RADEX 12603 [place] [facility] ANKLE 5 MEDICAL LILLIE COMPLETE IMAGING MINIMUM 3 ASS VIEWS RADEX 93518 [place] [facility] FOOT 5 MEDICAL LILLIE COMPLETE IMAGING MINIMUM 3 ASS VIEWS ECG 04015 CARDIOVAS TAMMY ROUTINE 5 CULAR MAT ECG CONSULTAN W/LEAST TS O 12 LDS W/I&R ECG 46961 CARDIOVAS TAMMY ROUTINE 5 CULAR MAT ECG CONSULTAN W/LEAST TS O 12 LDS W/I&R ECG 26627 CARDIOVAS CARDIOVAS ROUTINE 4 CULAR CULAR ECG CONSULTAN CONSULTAN W/LEAST TS O TS O 12 LDS W/I&R ECHO 90627 [facility] TTHRC R-T 4 INC - INC - 2D W/WOM-MOD E COMPL SPEC&COLR D ECG 14295 CARDIOVAS CARDIOVAS ROUTINE 4 CULAR CULAR ECG CONSULTAN CONSULTAN W/LEAST TS O TS O 12 LDS W/I&R HOSPITAL G0463 [facility] OUTPATIEN 4 [facility] T CLIN INC INC VISIT ASSESS & MGMT PT CT THORAX 31164 [facility] W/O 4 [facility] CONTRAST INC INC MATERIAL 3D 74252 BELÉN BELÉN RENDERING 4 LILLIE LILLIE W/INTERP & POSTPROCE SS SUPERVISI ON RADEX 43490 [facility] RIBS UNI 4 [facility] W/POSTERO INC INC ANT CH MINIMUM 3 VIEWS HOSPITAL G0463 [facility] [place] OUTPATIEN 4 [facility] T CLIN INC INC VISIT ASSESS & MGMT PT ECG 65436 JUAQUIN REZA ROUTINE 4 DEISY DEISY ECG W/LEAST 12 LDS I&R ONLY RADIOLOGI 92139 [facility] C EXAM 4 [facility] CHEST 2 INC INC VIEWS FRONTAL&L ATERAL ECG 76817 [facility] ROUTINE 4 [facility] ECG INC INC W/LEAST 12 LDS TRCG ONLY W/O I&R DUPLEX 65961 [facility] SCAN 4 [facility] EXTRACRAN INC INC IAL ART COMPL BI STUDY ECG 10589 [facility] ROUTINE 4 [facility] ECG INC INC W/LEAST 12 LDS TRCG ONLY W/O I&R RADIOLOGI 01194 [facility] C 4 [facility] EXAMINATI INC INC ON CHEST SING[place]IEW FRONTAL ECG 51127 MARTA LOZANO ROUTINE 4 III BART III BART ECG W/LEAST 12 LDS I&R ONLY ECG 15725 [facility] JR ROUTINE 4 DWI DWI ECG W/LEAST 12 LDS I&R ONLY INCISION 36520 [place] CRONIN & 3 DON DON DRAINAGE ABSCESS SIMPLE/SI NGLE CATARACT 94872 [facility] EYECARE REMOVAL 2 NETWORK NETWORK INSERTION OF LENS CATARACT 74190 [facility] EYECARE REMOVAL 2 NETWORK NETWORK INSERTION OF LENS DETERMINA 96225 JAN[facility]TE SAVAGE TION 2 JAM JAM REFRACTIV E STATE OPHTHALMO 75104 JANETTE SAVAGE SCPY 2 JAM JAM EXTENDED RETINAL DRAWING I&R 1ST OPHTHALMO 27185 JANETTE SAVAGE SCPY 2 JAM JAM EXTENDED RETINAL DRAWING I&R 1ST NON-INVAS 09230 [facility] MEREDITH 2 [facility] PHYSIOLOG INC INC IC STUDY EXTREMITY 3 LEVLS ECHO 59797 FALLUJI FALLUJI TTHRC R-T 1 FAWN FAWN 2D W/WOM-MOD E COMPL SPEC&COLR D COLLECTIO 57814 COMBINED COMBINED N VENOUS 1 PHYSICIAN PHYSICIAN BLOOD S LA S LA VENIPUNCT URE PROTHROMB 86160 COMBINED COMBINED IN TIME 1 PHYSICIAN PHYSICIAN S LA S LA PROTHROMB 70750 COMBINED COMBINED IN TIME 1 PHYSICIAN PHYSICIAN S LA S LA COLLECTIO 34567 COMBINED COMBINED N VENOUS 1 PHYSICIAN PHYSICIAN BLOOD S LA S LA VENIPUNCT URE ADMINISTR G0008 BRACKEN BRACKEN ATION OF 1 CO [facility]ALTH CO HEALTH INFLUENZA VIRUS DEPARTMEN DEPARTMEN VACCINE T T INFLUENZA Q2036 BRACKEN BRACKEN VACC 1 CO HEALTH CO HEALTH SPLIT VIRUS 3 DEPARTMEN DEPARTMEN YRS & > T T IM FLULAVAL PROTHROMB 83506 COMBINED COMBINED IN TIME 1 PHYSICIAN PHYSICIAN S LA S LA COLLECTIO 83298 COMBINED COMBINED N VENOUS 1 PHYSICIAN PHYSICIAN BLOOD S LA S LA VENIPUNCT URE COLLECTIO 74586 COMBINED COMBINED N VENOUS 1 PHYSICIAN PHYSICIAN BLOOD S LA S LA VENIPUNCT URE PROTHROMB 64175 COMBINED COMBINED IN TIME 1 PHYSICIAN PHYSICIAN S LA S LA PROTHROMB 31282 COMBINED COMBINED IN TIME 1 PHYSICIAN PHYSICIAN S LA S LA COMPREHEN 45257 COMBINED COMBINED SIVE 1 PHYSICIAN PHYSICIAN METABOLIC S LA S LA PANEL LIPID 50616 COMBINED COMBINED PANEL 1 [place] [address] COMBINED COMBINED THYROID 1 PHYSICIAN PHYSICIAN STIMULATI S LA S LA NG HORMONE TSH COLLECTIO 10172 COMBINED COMBINED N VENOUS 1 PHYSICIAN PHYSICIAN BLOOD S LA S LA VENIPUNCT URE PROSTATE G0103 COMBINED COMBINED CANCER 1 PHYSICIAN PHYSICIAN SCREENING S LA S LA ; PSA TEST PROTHROMB 28459 COMBINED COMBINED IN TIME 1 PHYSICIAN PHYSICIAN S LA S LA PROTHROMB 00963 COMBINED COMBINED IN TIME 1 PHYSICIAN PHYSICIAN S LA S LA COLLECTIO 32800 COMBINED COMBINED N VENOUS 1 PHYSICIAN PHYSICIAN BLOOD S LA S LA VENIPUNCT URE COLLECTIO 13961 COMBINED COMBINED N VENOUS 1 PHYSICIAN PHYSICIAN BLOOD S LA S LA VENIPUNCT URE PROTHROMB 60801 COMBINED COMBINED IN TIME 1 PHYSICIAN PHYSICIAN S LA S LA RADIOLOGI 97247 CRONIN CRONIN C 0 DON DON EXAMINATI ON CHEST SINGLE VIEW FRONTAL PROTHROMB 05398 COMBINED COMBINED IN TIME 0 PHYSICIAN PHYSICIAN S LA S LA COLLECTIO 36599 COMBINED COMBINED N VENOUS 0 PHYSICIAN PHYSICIAN BLOOD S LA S LA VENIPUNCT URE COLLECTIO 25589 COMBINED COMBINED N VENOUS 0 PHYSICIAN PHYSICIAN [place] [address] COMBINED COMBINED THYROID 0 PHYSICIAN PHYSICIAN STIMULATI S LA S LA NG HORMONE TSH LIPID 86613 COMBINED COMBINED PANEL 0 PHYSICIAN PHYSICIAN S LA S LA PROTHROMB 71041 COMBINED COMBINED IN TIME 0 PHYSICIAN PHYSICIAN S LA S LA COMPREHEN 33291 COMBINED COMBINED SIVE 0 PHYSICIAN PHYSICIAN METABOLIC S LA S LA PANEL IIV3 41229 BRACKEN BRACKEN VACCINE 0 CO HEALTH CO HEALTH SPLIT VIRUS 0.5 DEPARTMEN DEPARTMEN ML T T DOSAGE IM USE ADMINISTR G0008 BRACKEN BRACKEN ATION OF 0 CO HEALTH CO HEALTH INFLUENZA VIRUS DEPARTMEN DEPARTMEN VACCINE T T OPHTH 67044 [facility] 0 XM&EVAL COMPRE NEW PT 1/> VST PROTHROMB 72645 COMBINED COMBINED IN TIME 0 PHYSICIAN PHYSICIAN S LA S LA COLLECTIO 55978 COMBINED COMBINED N VENOUS 0 PHYSICIAN PHYSICIAN BLOOD S LA S LA VENIPUNCT URE COLLECTIO 18025 COMBINED COMBINED N VENOUS 0 PHYSICIAN PHYSICIAN BLOOD S LA S LA VENIPUNCT URE PROTHROMB 82794 COMBINED COMBINED IN TIME 0 PHYSICIAN PHYSICIAN S LA S LA PROTHROMB 25083 COMBINED COMBINED IN TIME 0 PHYSICIAN PHYSICIAN S LAB S LAB COLLECTIO 31712 COMBINED COMBINED N VENOUS 0 PHYSICIAN PHYSICIAN BLOOD S LAB S LAB VENIPUNCT URE COLLECTIO 37061 COMBINED COMBINED N VENOUS 0 PHYSICIAN PHYSICIAN BLOOD S LAB S LAB VENIPUNCT URE PROTHROMB 81971 COMBINED COMBINED IN TIME 0 PHYSICIAN PHYSICIAN S LAB S LAB PROTHROMB 84979 COMBINED COMBINED IN TIME 0 PHYSICIAN PHYSICIAN S LAB S LAB COLLECTIO 72561 COMBINED COMBINED N VENOUS 0 PHYSICIAN PHYSICIAN BLOOD S LAB S LAB VENIPUNCT URE BLOOD 54297 COMBINED COMBINED COUNT 0 PHYSICIAN PHYSICIAN COMPLETE S LAB S LAB AUTO&AUTO DIFRNTL WBC ECHO 54782 [facility] TTHRC R-T 0 [facility] 2D INC INC W/WOM-MOD E COMPL SPEC&COLR D XTRNL ECG 25855 [facility] [place] & 48 HR 0 [facility] RECORDING INC INC EXTERNAL 04758 [facility] ECG 0 [facility] SCANNING INC INC ANALYSIS REPORT XTRNL ECG 52236 [facility] CONTEH, 0 [facility] S RHYTHM PROF SERV W/I&R UP TO 48 HRS COMPREHEN 26584 COMBINED COMBINED SIVE 0 PHYSICIAN PHYSICIAN METABOLIC S LAB S LAB PANEL PROTHROMB 18946 COMBINED COMBINED IN TIME 0 PHYSICIAN PHYSICIAN S LAB S LAB LIPID 36425 COMBINED COMBINED PANEL 0 PHYSICIAN [place] [address] COMBINED COMBINED THYROID 0 PHYSICIAN PHYSICIAN STIMULATI S LAB S LAB NG HORMONE TSH COLLECTIO 46574 COMBINED COMBINED N VENOUS 0 PHYSICIAN PHYSICIAN BLOOD S LAB S LAB VENIPUNCT URE BLOOD 65684 COMBINED COMBINED COUNT 0 PHYSICIAN PHYSICIAN COMPLETE S LAB S LAB AUTO&AUTO DIFRNTL WBC COLLECTIO 29404 COMBINED COMBINED N VENOUS 0 PHYSICIAN PHYSICIAN BLOOD S LAB S LAB VENIPUNCT URE PROTHROMB 58739 COMBINED COMBINED IN TIME 0 PHYSICIAN PHYSICIAN S LAB S LAB PROTHROMB 93662 COMBINED COMBINED IN TIME 0 PHYSICIAN PHYSICIAN S LAB S LAB COLLECTIO 61760 COMBINED COMBINED N VENOUS 0 PHYSICIAN PHYSICIAN BLOOD S LAB S LAB VENIPUNCT URE COLLECTIO 22401 COMBINED COMBINED N VENOUS 0 PHYSICIAN PHYSICIAN BLOOD S LAB S LAB VENIPUNCT URE PROTHROMB 09096 COMBINED COMBINED IN TIME 0 PHYSICIAN PHYSICIAN S LAB S LAB PROTHROMB 94771 COMBINED COMBINED IN TIME 0 PHYSICIAN PHYSICIAN S LAB S LAB COLLECTIO 00264 COMBINED COMBINED N VENOUS 0 PHYSICIAN PHYSICIAN BLOOD [place] [address] COMBINED COMBINED THYROID 9 PHYSICIAN PHYSICIAN STIMULATI S LAB S LAB NG HORMONE TSH CREATININ 84032 COMBINED COMBINED E OTHER 9 PHYSICIAN PHYSICIAN SOURCE S LAB S LAB COLLECTIO 45149 COMBINED COMBINED N VENOUS 9 PHYSICIAN PHYSICIAN BLOOD S LAB S LAB VENIPUNCT URE LIPID 08510 COMBINED COMBINED PANEL 9 PHYSICIAN PHYSICIAN S LAB S LAB ALBUMIN 41811 COMBINED COMBINED URINE 9 PHYSICIAN PHYSICIAN MICROALBU S LAB S LAB MIN QUANTIATI VE COMPREHEN 19678 COMBINED COMBINED SIVE 9 PHYSICIAN PHYSICIAN METABOLIC S LAB S LAB PANEL HEMOGLOBI 83665 COMBINED COMBINED N 9 PHYSICIAN PHYSICIAN GLYCOSYLA S LAB S LAB JEFFY A1C PROTHROMB 68690 COMBINED COMBINED IN TIME 9 PHYSICIAN PHYSICIAN S LAB S LAB COLLECTIO 34368 COMBINED COMBINED N VENOUS 9 PHYSICIAN PHYSICIAN BLOOD S LAB S LAB VENIPUNCT URE RADEX 76843 CRONIN, CRONIN, SPINE 9 DON R DON R LUMBOSACR AL MINIMUM 4 VIEWS COLLECTIO 81478 COMBINED COMBINED N VENOUS 9 PHYSICIAN PHYSICIAN BLOOD S LAB S LAB VENIPUNCT URE PROTHROMB 40691 COMBINED COMBINED IN TIME 9 PHYSICIAN PHYSICIAN S LAB S LAB PROTHROMB 20919 COMBINED COMBINED IN TIME 9 PHYSICIAN PHYSICIAN S LAB S LAB ADMINISTR G0008 ROSEANNE CRONIN, ATION OF 9 DON R DON R INFLUENZA VIRUS VACCINE COLLECTIO 13307 COMBINED COMBINED N VENOUS 9 PHYSICIAN PHYSICIAN BLOOD S LAB S LAB VENIPUNCT URE IIV3 57181 ROSEANNE CRONIN, VACCINE 9 DON R DON R SPLIT VIRUS 0.5 ML DOSAGE IM USE COLLECTIO 17315 COMBINED COMBINED N VENOUS 9 PHYSICIAN PHYSICIAN BLOOD S LAB S LAB VENIPUNCT URE PROTHROMB 84245 COMBINED COMBINED IN TIME 9 PHYSICIAN PHYSICIAN S LAB S LAB PROTHROMB 85772 COMBINED COMBINED IN TIME 9 PHYSICIAN PHYSICIAN S LAB S LAB COLLECTIO 48073 COMBINED COMBINED N VENOUS 9 PHYSICIAN PHYSICIAN BLOOD S LAB S LAB VENIPUNCT URE COLLECTIO 06872 COMBINED COMBINED N VENOUS 9 PHYSICIAN PHYSICIAN BLOOD S LAB S LAB VENIPUNCT URE PROTHROMB 71828 COMBINED COMBINED IN TIME 9 PHYSICIAN PHYSICIAN S LAB S LAB PROTHROMB 41137 COMBINED COMBINED IN TIME 9 PHYSICIAN PHYSICIAN S LAB S LAB COLLECTIO 26611 COMBINED COMBINED N VENOUS 9 PHYSICIAN PHYSICIAN BLOOD S LAB S LAB VENIPUNCT URE COLLECTIO 20460 COMBINED COMBINED N VENOUS 9 PHYSICIAN PHYSICIAN BLOOD S LAB S LAB VENIPUNCT URE PROTHROMB 07250 COMBINED COMBINED IN TIME 9 PHYSICIAN PHYSICIAN S LAB S LAB PROTHROMB 04805 COMBINED COMBINED IN TIME 9 PHYSICIAN PHYSICIAN S LAB S LAB RADIOLOGI 25832 ROSEANNE CRONIN C 9 DON R DON R EXAMINATI ON CHEST SINGLE VIEW FRONTAL ECG 49170 ROSEANNE CRONIN ROUTINE 9 DON R DON R ECG W/LEAST 12 LDS W/I&R COLLECTIO 56614 COMBINED COMBINED N VENOUS 9 PHYSICIAN PHYSICIAN BLOOD S LAB S LAB VENIPUNCT URE COLLECTIO 78193 COMBINED COMBINED N VENOUS 9 PHYSICIAN PHYSICIAN BLOOD S LAB S LAB VENIPUNCT URE PROTHROMB 21563 COMBINED COMBINED IN TIME 9 PHYSICIAN PHYSICIAN S LAB S LAB COMPREHEN 05749 COMBINED COMBINED SIVE 9 PHYSICIAN PHYSICIAN METABOLIC S LAB S LAB PANEL PROTHROMB 46011 COMBINED COMBINED IN TIME 9 PHYSIC[place] [address] COMBINED COMBINED PROSTATE 9 PHYSICIAN PHYSICIAN SPECIFIC [place] [address] COMBINED COMBINED THYROID 9 PHYSICIAN PHYSICIAN STIMULATI S LAB S LAB NG HORMONE TSH LIPID 84188 COMBINED COMBINED PANEL 9 PHYSICIAN PHYSICIAN S LAB S LAB COLLECTIO 32063 COMBINED COMBINED N VENOUS 9 PHYSICIAN PHYSICIAN BLOOD S LAB S LAB VENIPUNCT URE BLOOD 13904 COMBINED COMBINED COUNT 9 PHYSICIAN PHYSICIAN COMPLETE S LAB S LAB AUTO&AUTO DIFRNTL WBC COLLECTIO 94506 COMBINED COMBINED N VENOUS 9 PHYSICIAN PHYSICIAN BLOOD S LAB S LAB VENIPUNCT URE PROTHROMB 78300 COMBINED COMBINED IN TIME 9 PHYSICIAN PHYSICIAN S LAB S LAB PROTHROMB 36037 COMBINED COMBINED IN TIME 8 PHYSICIAN PHYSICIAN S LAB S LAB COLLECTIO 21313 COMBINED COMBINED N VENOUS 8 PHYSICIAN PHYSICIAN BLOOD S LAB S LAB VENIPUNCT URE PROTHROMB 66596 COMBINED COMBINED IN TIME 8 PHYSICIAN PHYSICIAN S LAB S LAB COLLECTIO 12244 COMBINED COMBINED N VENOUS 8 PHYSICIAN PHYSICIAN BLOOD S LAB S LAB VENIPUNCT URE PROTHROMB 21047 COMBINED COMBINED IN TIME 8 PHYSICIAN PHYSICIAN S LAB S LAB ADMINISTR G0008 ROSEANNE CRONIN, ATION OF 8 DON R DON R INFLUENZA VIRUS VACCINE COLLECTIO 65804 COMBINED COMBINED N VENOUS 8 PHYSICIAN PHYSICIAN BLOOD S LAB S LAB VENIPUNCT URE IIV3 57937 ROSEANNE CRONIN, VACCINE 8 DON R DON R SPLIT VIRUS 0.5 ML DOSAGE IM USE PPSV23 94622 ROSEANNE CRONIN, VACCINE 2 8 DON R DON R YRS OR OLDER FOR SUBQ/IM USE ADMINISTR G0009 ROSEANNE CRONIN, ATION OF 8 DON R DON R PNEUMOCOC MAYCO VACCINE US BREAST 91257 [facility] REAL 8 [facility] TIME INC INC W/IMAGE DOCUMENTA TION MAMMOGRAP 69164 [facility] 8 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 S ROXANNE 34111 EDIN JESUS SKIN 8 , LEAH , LEAH LESION 1 F/E/E/N/L /M DIAM 0.5 CM/< COMPREHEN 07740 [facility] SIVE 8 [facility] METABOLIC INC INC PANEL COLLECTIO 04792 [facility] N VENOUS 8 [facility] INC VENIPUNCT URE Encounters Encounter Start End Date Code Location Performer Type Date OFFICE 78498 [facility] MIN[facility] OFF[facility] 25143 [facility] MINUT[facility] OFFICE 97306 [facility] 15 CTR MINUTES OFFICE 42781 [facility] OUTPATIEN 7 7 PHYSICIAN T VISIT S GROUP 25 MINUTES [facility]OSP[facility] TEETEE - 7 7 [facility] T OFFICE 87873 [facility] 7 [facility] T V[facility] 15 CTR MINUTES OFFICE 33595 [facility] 7 7 [facility] 15 CTR MINUTES OFFICE 67659 [facility] 7 7 [facility] T V[facility] 15 CTR MINUTES [facility] TEET[facility] - 6 6 [facility] T OFFICE 21599 [facility] OUTPATIEN 6 6 PHYSICIAN T VISIT S GROUP 25 MINUTES HOSPITAL TEETEE - 6 6 [facility] T OFFICE 30730 [facility] 6 6 [facility] T VISIT [facility] 15 CTR MINUTES OFFICE 62108 [facility] 6 6 [facility] T VIS[facility] HEALTH 15 CTR MINUTES OFFICE 96833 [facility] 6 6 [facility] T VISIT [facility]ALTH 15 CTR MINUTES OFFICE 04180 [facility] 6 6 FAMILY T VISIT HEALTH 25 CTR MINUTES OFFICE 23482 [facility] OUTPATIEN 6 6 PHYSICIAN MAT T VISIT S GROUP 15 MINUTES HOSPITAL TEETEE - 6 6 [facility] T OFFICE 00337 [facility] OUTPATIEN 6 6 PHYSICIAN MAT T VISIT S GROUP 25 MINUTES HOSPITAL TEETEE - 5 5 [facility] T OFFICE 78670 [facility] OUT[facility] 5 5 CULAR MAT T VISIT CONSULTAN 25 TS O MINUTES OFFICE 02462 [facility] OUTPATI[facility] 5 5 CULAR MAT T VISIT CONSULTAN 25 TS O MINUTES HOSPITAL TEETEE - 4 4 [facility] TEETEE - 4 4 [facility] TEETEE [facility] 4 4 [facility] T OFFICE 97300 JUAQUIN JIMENEZEY OUTPATIEN 4 4 [facility] 20 HOSPITAL TEETEE [facility] 4 4 [facility] TEETEE - 4 4 [facility] T Inpatient IMP Teetee Hernández MD (IN) 4 03:36 4 12:40 [facility] TEETEE - 4 4 [facility] Inpatient MINNIE Rivera MD (IN) 4 13:27 4 17:00 [facility] OFFICE 54778 CRONIN CRONIN OUTPATIEN 3 3 DON DON T VISIT 15 MINUTES HOSPITAL TEETEE - 2 2 [facility] T OFFICE 21656 [facility] FALLU OUTPATIEN 2 2 [facility] FAWN T VISIT 25 MINUTES OFFICE 52075 CRONIN CRONIN OUTPATIEN 2 2 DON DON T VISIT 15 MINUTES HOSPITAL TEETEE - 1 1 [facility] T OFFICE 21494 CRONIN CRONIN OUTPATIEN 1 1 DON DON T VISIT 15 MINUTES OFFICE 42076 CRONIN CRONIN OUTPATIEN 1 1 DON DON T VISIT 15 MINUTES OFFICE 49431 [facility] FALLUJI OUTPATIEN 1 1 PHYSICIAN FAWN T VISIT S GROUP 25 MINUTES OFFICE 95618 CRONIN CRONIN OUTPATIEN 1 1 DON DON T VISIT 15 MINUTES OFFICE 80511 [facility] FALLUJI OUTPATIEN 0 0 PHYSICIAN FAWN T VISIT S GROUP 25 MINUTES OFFICE 47039 CRONIN CRONIN OUTPATIEN 0 0 DON DON T VISIT 25 MINUTES OFFICE 05795 [facility] FALLUJI OUTPATIEN 0 0 PHYSICIAN FAWN T VISIT S GROUP 25 MINUTES OFFICE 01976 CRONIN CRONIN OUTPATIEN 0 0 DON DON T VISIT 15 MINUTES OFFICE 53512 CRONIN CRONIN OUTPATIEN 0 0 DON DON T VISIT 15 MINUTES OFFICE 44825 CRONIN, CRONIN, OUTPATIEN 0 0 DON R DON R T VISIT 15 MINUTES OFFICE 50927 [facility] FALLUJI, OUTPATIEN 0 0 PHYSICIAN EMMANUEL Roman T VISIT S GROUP 25 MINUTES HOSPITAL TEETEE - 0 0 [facility] - 0 0 [facility] T OFF[facility] 28168 [facility] NESHA OUTPATIEN 0 0 PHYSICIAN EMMANUEL Bryant VISIT S GROUP 25 MINUTES OFFICE 39741 ROSEANNE CRONIN OUTPATIEN 0 0 DON R DON R T VISIT 15 MINUTES OFFICE 06520 ROSEANNE CRONIN OUTPATIEN 0 0 DON R DON R T VISIT 15 MINUTES OFFICE 88159 ROSEANNE CRONIN OUTPATIEN 9 9 DON R DON R T VISIT 15 MINUTES OFFICE 23120 ROSEANNE CRONIN OUTPATIEN 9 9 DON R DON R T VISIT 15 MINUTES OFFICE 58670 ROSEANNE CRONIN OUTPATIEN 9 9 DON R DON R T VISIT 15 MINUTES OFFICE 37866 ROSEANNE CRONIN OUTPATIEN 9 9 DON R DON R T VISIT 15 MINUTES OFFICE 12147 ROSEANNE CRONIN OUTPATIEN 9 9 DON R DON R T VISIT 15 MINUTES OFFICE 29627 ROSEANNE CRONIN OUTPATIEN 8 8 DON R DON R T VISIT 15 MINUTES OFFICE 05516 ROSEANNE CRONIN OUTPATIEN 8 8 DON R DON R T VISIT 15 MINUTES OFFICE 80453 [facility] OUTPATI[facility] 8 8 , LEAH LYNN T VISIT 15 MINUTES HOSPITAL TEETEE - 8 8 [facility] T OFFICE 94938 [facility] 8 8 , LEAH LYNN ION NEW/ESTAB PATIENT 40 MIN OFFICE 21015 CRONIN, CRONIN, OUTPATIEN 8 8 DON R DON R T VISIT 15 MINUTES [facility]ICE 55419 [facility] 8 HEART & NEZAR M T VISIT VASCULAR 25 ASSOC MINUTES OFFICE 24101 ROSEANNE CRONIN OUTPATIEN 8 8 DON R DON R T VISIT 15 MINUTES OFFICE 47005 ROSEANNE CRONIN OUTPATIEN 8 8 DON R DON R T VISIT 15 MINUTES OFFICE 15755 [facility] 8 8 HEART & NEZAR M T VISIT VASCULAR 25 ASSOC MINUTES OFFICE 64543 ROSEANNE CRONIN OUTPATIEN 8 8 DON R DON R T VISIT 15 MINUTES OFFICE 09356 ROSEANNE CRONIN OUTPATIEN 8 8 DON R DON R T VISIT 15 MINUTES [facility] T OFFICE 44972 ROSEANNE CRONIN OUTPATIEN 8 8 DON R DON R T VISIT 15 MINUTES OFFICE 48355 ROSEANNE CRONIN OUTPATIEN 8 8 DON R DON R T VISIT 15 MINUTES
--- OUTSIDE RECORDS SUMMARY | 2017-08-15 10:35 | External Medical Summary Rpt ---
Author Author , GRACY DUBOSE Address Unknown Phone [email or web address] Care Team Providers Care Entry Level Electrical Engineer Name Role Phone VALERIE APONTE, Unavailable Unavailable VALERIE APONTE DEZ II, DEZ II Unavailable Unavailable RANJEET, RANJEET Unavailable Unavailable BESSON ANNABEL, BESSON Unavailable Unavailable ANNABEL [facility] Unavailable Unavailable DEPARTMENT, [facility] DEPARTMENT [facility] Unavailable Unavailable DEPARTMENT, [facility] DEPARTMENT [facility] Unavailable Unavailable CON[facility]ULTANTS O, [facility] MADDISON LEACH DON, Unavailable Unavailable MADDISON DAS [facility] Unavailable Unavailable [facility], [facility]available Unavailable [facility], [facility] Unavailable Unavailable LAB, [facility] BELÉN LILLIE, Unavailable Unavailable BELÉN LILLIE BELÉN LILLIE, Unavailable Unavailable BELÉN LILLIE FALLUJI FAWN, FALLUJI Unavailable Unavailable FAWN FALLUJI FAWN, FALLUJI Unavailable Unavailable FAWN FALLUJI, NEZAR M, Unavailable Unavailable FALLUJI, NEZAR M JUAQUIN DEISY, JUAQUIN Unavailable Unavailable DEISY JUAQUIN DEISY, JUAQUIN Unavailable Unavailable DEISY [facility] Unavailable Unavailable [facility], [facility] BABCOCK GURPREET, BABCOCK Unavailable Unavailable GURPREET BABCOCK GURPREET, BABCOCK Unavailable Unavailable GURPREET WILSON CAMACHO, WILSON CAMACHO Unavailable Unavailable [facility], Unavailable Unavailable [facility] Unavailable Unavailable [facility], [facility] Unavailable Unavailable [facility], [facility] MORROW, MORROW Unavailable Unavailable [facility] WERO JR DWI, WERO Unavailable Unavailable JR DWI WERO JR DWI, WERO Unavailable Unavailable JR DWI CASTILLO CONTEH, Unavailable Unavailable CASTILLO CONTEH, Unavailable Unavailable ROGER REYES, Unavailable Unavailable ROGER ROUSE NEUS, NEUS Unavailable Unavailable NEUS ANNABEL, NEUS ANNABEL Unavailable Unavailable RESENDEZ GRA, RESENDEZ GRA Unavailable Unavailable [facility], Unavailable [facility]available [facility] LEAH JESUS, Unavailable Unavailable LEAH JESUS, TAMMY Unavailable Unavailable TAMMY MAT, Unavailable Unavailable TAMMY MAT STEFANESCU-STURZ ION, Unavailable Unavailable STEFANESCU-STURZ ION CRONIN DON, Unavailable Unavailable CRONIN DON CRONIN DON, Unavailable Unavailable CRONIN DON CRONIN, DON R, Unavailable Unavailable CRONIN, DON R [facility] Unavailable Unavailable #[id number], [facility] Purpose Continuity of Care Document - 11-27-2007 [...] CTR LIPID RICH PLAQUE E785 HYPERLIPIDE 05-01-2017 [facility] BORA PHYSICIANS UNSPECIFIED GROUP I119 HYPERTENSIV 05-01-2017 [facility] E HEART PHYSICIANS DISEASE GROUP WITHOUT HEART FAILURE 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 [facility] 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 ANGINA PECTORIS I4892 UNSPECIFIED 05-01-2017 [facility] ATRIAL PHYSICIANS FLUTTER GROUP R251 TREMOR 05-01-2017 [facility] UNSPECIFIED PHYSICIANS GROUP 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[facility] 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 E039 HYPOTHYROID 02-26-2017 [facility]M [facility] UNSPECIFIED HEALTH CTR I509 HEART 02-26-2017 [facility] FAILURE FAMILY UNSPECIFIED HEALTH CTR Z5181 ENCOUNTER 02-26-2017 [facility] FOR [facility] THERAPEUTIC HEALTH CTR DRUG LEVEL MONITORING Z7901 DIE MAKER BENCH STAMPING 02-26-2017 [facility] CURRENT USE FAMILY OF HEALTH CTR ANTICOAGULA NTS Z760 ENCOUNTER 01-15-2017 [facility] FOR ISSUE FAMILY OF REPEAT HEALTH CTR PRESCRIPTIO N 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 10-24-2016 [facility] TRICUS[facility] SERV [facility] INSUFFICIEN CY I371 NONRHEUMATI 10-24-2016 [facility] PULMONARY SERV [facility] INSUFFICIEN CY G48208 SPONDYLOSIS 09-12-2016 [facility] W/O INC MYELOPATH/R ADICULOPATH [...] [facility] E079 DISORDER OF 05-02-2016 [facility] THYROID PHYSICIANS UNSPECIFIED GROUP B028 ZOSTER WITH 04-12-2016 [facility] OTHER FAMILY COMPLICATIO HEALTH CTR NS G250 ESSENTIAL 04-12-2016 [facility] TREMOR [facility]ILY [facility]ALTH CTR I38 ENDOCARDITI 02-01-2016 [facility] S VALVE PHYSICIANS UNSPECIFIED GROUP G252 OTHER 10-27-2015 [facility] SPECIFIED FAMILY FORMS OF HEALTH CTR TREMOR I999 UNSPECIFIED 10-27-2015 [facility] DISORDER FAMILY OF HEALTH CTR CIRCULATORY SYSTEM M159 POLYOSTEOAR 10-27-2015 [facility] THRITIS FAMILY UNSPECIFIED HEALTH CTR 72496 UNSPEC HTN 08-03-2015 [facility] HEART LAR DISEASE CONSULTANTS WITHOUT O HEART FAIL 88272 COR 08-03-2015 [facility] ATHEROSLERO LAR UNSPEC CONSULTANTS TYPE VESSEL O COCOPAH/RUCHI T 56200 OTHER 08-03-2015 [facility] ENDOCARDITI LAR S VALVE CONSULTANTS UNSPECIFIED O 56147 ATRIAL 08-03-2015 [facility] FLUTTER LAR CONSULTANTS O 17890 EFFUSION OF 05-31-2015 [facility] ANKLE AND INC FOOT JOINT V714 OBSERVATION 05-31-2015 [facility] FOLLOWING INC OTHER ACCIDENT 70637 PAIN IN 05-22-2015 [place] [facility] FOOT 7295 PAIN IN 05-22-2015 [facility] SOFT MEDICAL TISSUES OF IMAGING ASS LIMB 9597 INJURY 05-22-2015 [place] OTHER&UNSPE MEDICAL CIFIED KNEE IMAGING ASS LEG ANKLE&FOOT 2724 OTHER AND 05-03-2015 [facility] UNSPECIFIED LAR CONSULTANTS HYPERLIPIDE O BORA 22629 ATRIAL 05-03-2015 [facility] FIBRILLATIO LAR N CONSULTANTS O V5861 LONG-TERM 03-25-2014 [facility] USE OF INC ANTICOAGULA NTS 5119 UNSPECIFIED 03-11-2014 BELÉ[facility] PLEURAL LILLIE EFFUSION 5180 PULMONARY 03-11-2014 BELÉ[facility] COLLAPSE LILLIE 96908 OTHER 03-11-2014 BELÉN DISEASES OF LILLIE LUNG NOT ELSEWHERE CLASSIFIED 31737 SHORTNESS 03-11-2014 [facility] OF BREATH [facility] INC 44304 CHEST PAIN 03-11-2014 [facility] UNSPECIFIED [facility] INC E8889 UNSPECIFIED 03-11-2014 BELÉN FALL LILLIE 2449 UNSPECIFIED 03-04-2014 JUAQUIN DEISY HYPOTHYROID ISM 9221 CONTUSION 03-04-2014 [facility] OF CHEST [facility] WALL INC 4019 UNSPECIFIED 01-03-2014 [facility] ESSENTIAL [facility] HYPERTENSIO INC N 4139 OTHER AND 01-03-2014 [facility] UNSPECIFIED [facility] ANGINA INC PECTORIS 73523 ACUT NE 11-30-2013 [facility] SUBENDOCARD [facility] IAL INFARCT INC SUBSQT EPIS CARE 96038 OTHER CHEST 11-30-2013 [facility] PAIN [facility] INC V4509 OTHER 11-30-2013 [facility] SPECIFIED [facility] CARDIAC INC DEVICE IN SITU V4582 POSTSURG 11-30-2013 [facility] PERCUT [facility] TRANSLUMINA INC L COR ANGPLSTY STS V5869 LONG-TERM 11-30-2013 [facility] USE OF INC OTHER MEDICATIONS 16314 ACUT NE 11-18-2013 [facility] SUBENDOCARD DWI IAL INFARCT INIT EPIS CARE 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 [facility] ATHEROSCLER DWI OSIS COCOPAH CORONARY ARTERY 7062 SEBACEOUS 01-31-2013 CR[facility] CYST DON 4149 UNSPECIFIED 11-18-2012 CRONIN CHRONIC DON ISCHEMIC HEART DISEASE 96783 NUCLEAR 09-17-2012 [facility] GURPREET SCLEROSIS 16275 VITREOUS 06-25-2012 JANETTE SALAZARERATIO JAM N 77174 ATHEROSLERO 04-25-2012 [place] NAT[facility] ART [facility]ICAL EXTREM IMAGING ASS W/INTERMIT CLAUDICAT 86823 ATHEROSLERO 04-25-2012 [place] COCOP[facility] ART MEDICAL IMAGING ASS EXTREMITIES W/REST PAIN 4439 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 [facility] 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-18-2012 NESHA AUGUSTINE VALVE DISORDERS 21439 HEMATURIA 12-04-2011 CRONIN UNSPECIFIED DON 7823 EDEMA 12-04-2011 CRONIN DON 8472 LUMBAR 12-04-2011 [facility] SPRAIN AND DON STRAIN V7644 SPECIAL 09-01-2011 [facility]EN[facility] MALIGNANT LA NEOPLASM OF PROSTATE V0481 NEED 07-14-2011 [facility] PROPHYLACTI HEALTH C DEPARTMENT VACCINATION &INOCULATIO N FLU 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[facility] VALVE PHYSICIANS DISORDERS GROUP 3668 OTHER 12-26-2010 ROSEANNE CATARACT DON 44239 HEMOPTYSIS 09-27-2010 CRONIN UNSPECIFIED DON 9211 CONTUSION 08-08-2010 CRONIN OF EYELIDS DON AND PERIOCULAR AREA 50127 DIAB W/O 07-15-2010 [facility] COMP TYPE PHYSICIANS II/UNS NOT LA STATED UNCNTRL 90263 OTHER 02-07-2010 [facility] RESPIRATORY PROF SERV ABNORMALITI ES 2720 PURE 01-18-2010 RO[facility] HYPERCHOLES DON R TEROLEMIA 4011 ESSENTIAL 01-18-2010 [facility] HYPERTENSIO DON R N, BENIGN 4659 ACUTE URIS 11-22-2009 RO[facility] OF DON R UNSPECIFIED SITE 22153 CONTUSION 07-28-2009 RO[facility] OF LOWER DON R LEG 496 CHRONIC 02-26-2009 RO[facility] AIRWAY DON R OBSTRUCTION NEC V4581 POSTSURGICA 02-26-2009 ROSEANNE L DON R AORTOCORONA RY BYPASS STATUS 6019 UNSPECIFIED 01-28-2009 [facility] PROSTATITIS LAB 20695 ENDOCARDITI 01-26-2009 ROSEANNE S VALVE DON R UNSPECIFIED UNSPECIFIED CAUSE 460 ACUTE 01-26-2009 ROSEAN[facility] NASOPHARYNG DON R ITIS 08422 HYPERTROPHY 01-26-2009 ROSEANNE PROSTATE DON R W/O UR OBST & OTH LUTS 74527 PAIN IN 12-28-2008 [facility] JOINT, SITE PHYSICIANS LAB UNSPECIFIED 52025 UNSPECIFIED 09-23-2008 RO[facility] ORCHITIS DON R AND EPIDIDYMITI S 6111 HYPERTROPHY 08-25-2008 ROSEANNE, OF BREAST DON R V0382 NEED PROPH 08-25-2008 [facility] VACCINATION DON R AGAINST STREP PNEUMONE 83427 MASTODYNIA 08-20-2008 LEAH JESUS 73363 OTHER SIGN 08-17-2008 [place] [facility] 6119 UNSPECIFIED 08-17-2008 [facility] DISORDER INC 03003 INSOMNIA 07-28-2008 CRONIN, UNSPECIFIED DON R 3829 UNSPECIFIED 06-30-2008 ROSEANNE, OTITIS DON R MEDIA 7099 UNSPECIFIED 06-16-2008 SCHULSTAD, DISORDER LEAH OF SKIN&SUBCUT ANEOUS TISSUE 4279 UNSPECIFIED 05-19-2008 ROSEANNE, CARDIAC DON R DYSRHYTHMIA 3963 MITRAL 04-06-2008 [place] [facility] INSUFF&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 77015 ORTHOPNEA 11-27-2007 RO[facility] DON R Medications Na ND Rx Da Fi Fi Am Da Di Ph RX Ph St me C No te ll ll ou ys ag ar # ys at rm s nt no ma ic us Or Da si cy ia de te s n re d CL 00 10 12 02 90 30 [...] [address] Ac ON - -0 .0 L- 76 EP ti AZ [...] ON .0 L- EP ti AZ 30 0- 2- 00 MA 23 HE ve EP 83 20 20 RT 9 NS AM 30 08 09 1 1 PH DO AR N MG MA R CY TA BL #5 ET 91 CL 00 12 01 00 [address] Ac ON .0 L- 73 EP ti AZ 30 0- 5- 00 MA 23 HE ve EP 83 20 20 RT 9 NS AM 30 08 09 1 1 PH DO AR N MG MA R CY TA BL #5 ET 91 CL 00 08 12 02 [address] Ac ON -0 .0 L- 70 EP ti AZ 30 7- 4- 00 MA 38 HE ve EP 83 20 20 RT 8 NS AM 30 08 08 1 1 PH DO AR N MG MA R CY TA BL #5 ET 91 CL 00 08 10 01 [address] Ac ON -2 .0 L- 70 EP ti AZ 30 7- 3- 00 MA 38 HE ve EP 83 20 20 RT 8 NS AM 30 08 08 1 1 PH DO AR N MG MA R CY TA BL #5 ET 91 CL 00 08 09 00 [address] Ac ON -1 .0 L- 70 EP ti AZ 30 7- 1- 00 MA 38 HE ve EP 83 20 20 RT 8 NS AM 30 08 08 1 1 PH DO AR N MG MA R CY TA BL #5 ET 91 CL 00 07 08 00 [address] Ac ON -0 .0 L- 69 EP ti AZ 30 1 MA 43 HE ve EP 83 20 20 RT 0 NS AM 30 08 08 1 1 PH DO AR N MG MA R CY TA BL #5 ET 91 CL 00 07 07 00 [address] Ac ON 1 .0 L- 69 EP ti AZ 30 1 7- 00 MA 43 HE ve EP 83 20 20 RT 0 NS AM 30 08 08 1 1 PH DO AR N MG MA R CY TA BL #5 ET 91 CL 00 02 06 02 90 30 WA 44 No Ac ON -0 .0 L 66 t ti AZ 30 1 5 MA 18 Av ve EP 83 20 20 RT 6 ai AM 30 08 08 la 1 1 PH bl AR e MG MA CY TA BL #5 ET 91 CL 00 02 04 01 90 30 WA 44 No Ac ON 2 .0 L 66 t ti AZ 30 1 MA 18 Av ve EP 83 20 20 RT 6 ai AM 30 08 08 la 1 1 PH bl AR e MG MA CY TA BL #5 ET 91 CL 00 02 03 00 90 30 WA 44 No Ac ON 2 .0 L 66 t ti AZ 30 1 6 00 MA 18 Av ve EP 83 20 20 RT 6 ai AM 30 08 08 la 1 1 PH bl AR e MG MA CY TA BL #5 ET 91 Immunization Name Date Rout CVX Reac Dose Comm Prov Is Faci e tion ent ider Refu lity Give sed n IIV3 07-07 141 BRAC No BRAC 8-20 PRINCE PRINCE VACC 10 CO CO INE HEAL HEAL SPLI TH TH T DEPA DEPA VIRU RTME RTME S NT NT 0.5 ML DOSA GE IM USE IIV3 07-07 141 STEP No STEP 3-20 HENS HENS [...] OR OLDE R FOR SUBQ /IM USE Procedures Procedure DOS Code Location Performer Comment RADIOLOGI 06606 RADIOLOGY DEZ II C EXAM 7 INC CHEST 2 VIEWS FRONTAL&L ATERAL ECG 92999 [facility] ROUTINE 7 [facility] ECG INC INC W/LEAST 12 LDS TRCG ONLY W/O I&R ECG 17346 [facility] NEUS ROUTINE [address] [facility] W/LEAST CTR 12 LDS TRCG ONLY W/O I&R PROTHROMB 86363 [facility] NEUS IN TIME 7 [facility] CTR FEDERALLY G0467 [facility] 7 [facility] CTR CTR CENTER VISIT ESTAB PT FEDERALLY G0467 [facility] 7 [facility] CTR CTR CENTER VISIT ESTAB [place] ECG 52645 [facility] KINGSLEY ROUTINE 6 [facility] ECG INC INC W/LEAST 12 LDS TRCG ONLY W/O I&R ECHO 09400 [facility] MEDICAL 2D SERV W/WOM-MOD FOUNDATIO E COMPL N SPEC&COLR D THERAPEUT 99556 [facility] IC 6 [facility] TIC/DX CTR CTR INJECTION SUBQ/IM RADEX 94936 RADIOLOGY RANJEET SPINE 6 INC CERVICAL 2 OR 3 VIEWS FEDERALLY G0467 [facility] 6 [facility] CTR CTR CENTER VISIT ESTAB PT FEDERALLY G0467 [facility] CO 6 [facility] CTR CTR CENTER VISIT ESTAB PT COLLECTIO 31891 [facility] N 6 [facility] BLOOD CTR CTR SPECIMEN FEDERALLY G0467 [facility] CO 6 [facility] CTR CTR CENTER VISIT ESTAB PT FEDERALLY G0467 [facility] CO 6 [facility] CTR CTR CENTER VISIT ESTAB PT COLLECTIO 61054 [facility] N VENOUS 6 [facility] CTR CTR URE FEDERALLY G0467 [facility] NEUS ANNABEL 6 [facility] CTR CENTER [place] ECG 46035 [facility] ROUTINE 6 [facility] ECG INC INC W/LEAST 12 LDS TRCG ONLY W/O I&R ECG 89803 CARDIOVAS CARDIOVAS ROUTINE 5 CULAR CULAR ECG CONSULTAN CONSULTAN W/LEAST TS O TS O 12 LDS I&R ONLY FEDERALLY G0467 [facility] HENSLEY ANNABEL 5 [facility] CTR CENTER VISIT ESTAB [place] ECHO 54772 [facility] 5 MEDICAL [place] FAY 2D SERV W/WOM-MOD FOUNDATIO E COMPL N SPEC&COLR D ECG 82240 CARDIOVAS CARDIOVAS ROUTINE 5 CULAR CULAR ECG CONSULTAN CONSULTAN W/LEAST TS O TS O 12 LDS I&R ONLY RADEX 03649 RADIOLOGY RESENDEZ GRA ANKLE 5 INC COMPLETE MINIMUM 3 VIEWS RADEX 16183 [place] [facility] FOOT 5 MEDICAL LILLIE COMPLETE IMAGING MINIMUM 3 ASS VIEWS RADEX 81996 [place] [facility] ANKLE 5 MEDICAL LILLIE COMPLETE IMAGING MINIMUM 3 ASS VIEWS ECG 81513 CARDIOVAS TAMMY ROUTINE 5 CULAR MAT ECG CONSULTAN W/LEAST TS O 12 LDS W/I&R ECG 61733 CARDIOVAS TAMMY ROUTINE 5 CULAR MAT ECG CONSULTAN W/LEAST TS O 12 LDS W/I&R ECG 26490 CARDIOVAS CARDIOVAS ROUTINE 4 CULAR CULAR ECG CONSULTAN CONSULTAN W/LEAST TS O TS O 12 LDS W/I&R ECHO [address] [facility] R-T 4 CULAR MAT 2D CONSULTAN W/WOM-MOD TS O E COMPL SPEC&COLR D ECG 03635 CARDIOVAS CARDIOVAS ROUTINE 4 CULAR CULAR ECG CONSULTAN CONSULTAN W/LEAST TS O TS O 12 LDS W/I&R HOSPITAL G0463 [facility] OUTPATIEN 4 [facility] T CLIN INC INC VISIT ASSESS & MGMT PT 3D 59379 BELÉN BELÉN RENDERING 4 LILLIE LILLIE W/INTERP & POSTPROCE SS SUPERVISI ON CT THORAX 71203 BELÉN BELÉN W/O 4 LILLIE LILLIE CONTRAST MATERIAL RADEX 38719 [facility] KINGS[facility] RIBS UNI 4 [facility] W/POSTERO INC INC ANT CH MINIMUM 3 VIEWS HOSPITAL G0463 [facility] OUTPATIEN 4 [facility] T CLIN INC INC VISIT ASSESS & MGMT PT ECG 80712 [facility] KINGSLEY ROUTINE 4 [facility] ECG INC INC W/LEAST 12 LDS TRCG ONLY W/O I&R RADIOLOGI 88856 [facility] KINGSLEY C EXAM 4 [facility] CHEST 2 INC INC VIEWS FRONTAL&L ATERAL ECG 88999 JUAQUIN REZA ROUTINE 4 DEISY DEISY ECG W/LEAST 12 LDS I&R ONLY DUPLEX 76549 [facility] K[facility] SCAN 4 [facility] EXTRACRAN INC INC IAL ART COMPL BI STUDY ECG 51433 ENRIQUETA ROBISON ROUTINE 4 ANNABEL ANNABEL ECG W/LEAST 12 LDS I&R ONLY ECG 44350 [facility] KINGSLEY ROUTINE 4 [facility] ECG INC INC W/LEAST 12 LDS TRCG ONLY W/O I&R RADIOLOGI 67817 TE[facility] KINGSLEY C 4 [facility] EXAMINATI INC INC ON CHEST SINGLE VIEW FRONTAL ECG 09884 [facility] CONTEH JR ROUTINE 4 DWI DWI ECG W/LEAST 12 LDS I&R ONLY INCISION 29325 ROSEANNE CRONIN & 3 DON DON DRAINAGE ABSCESS SIMPLE/SI NGLE CATARACT 36286 [facility] BABCOCK REMOVAL 2 GURPREET GURPREET INSERTION OF LENS CATARACT 64581 [facility] BABCOCK REMOVAL 2 GURPREET GURPREET INSERTION OF LENS DETERMINA 73750 JANETTE SAVAGE TION 2 BENITEZ MARQUIS REFRACTIV E STATE OPHTHALMO 06970 JANETTE WASHBURN SCPY 2 BENITEZ JR DON EXTENDED RETINAL DRAWING I&R 1ST OPHTHALMO 62269 JANETTE BASHIR SCPY 2 BENITEZ U-STURZ EXTENDED ION RETINAL DRAWING I&R 1ST NON-INVAS 58612 [facility] KINGSLEY MEREDITH 2 [facility] PHYSIOLOG INC INC IC STUDY EXTREMITY 3 LEVLS ECHO 85902 [facility] K[facility] TTHRC R-T 1 [facility] H[facility] INC W/WOM-MOD E COMPL SPEC&COLR D COLLECTIO 01401 COMBINED COMBINED N VENOUS 1 PHYSICIAN PHYSICIAN BLOOD S LA S LA VENIPUNCT URE PROTHROMB 83603 COMBINED COMBINED IN TIME 1 PHYSICIAN PHYSICIAN S LA S LA PROTHROMB 65798 COMBINED COMBINED IN TIME 1 PHYSICIAN PHYSICIAN S LA S LA COLLECTIO 99762 COMBINED COMBINED N VENOUS 1 PHYSICIAN PHYSICIAN BLOOD S LA S LA VENIPUNCT URE ADMINISTR G0008 [facility] BRACKEN ATION OF 1 [facility] HEALTH INFLUENZA VIRUS DEPARTMEN DEPARTMEN VACCINE T T INFLUENZA Q2036 [facility]ACKEN VACC 1 CO [facility] CO HEALTH SPLIT VIRUS 3 DEPARTMEN DEPARTMEN YRS & > T T IM FLULAVAL PROTHROMB 75687 COMBINED COMBINED IN TIME 1 PHYSICIAN PHYSICIAN S LA S LA COLLECTIO 88404 COMBINED COMBINED N VENOUS 1 PHYSICIAN PHYSICIAN BLOOD S LA S LA VENIPUNCT URE COLLECTIO 20966 COMBINED COMBINED N VENOUS 1 PHYSICIAN PHYSICIAN BLOOD S LA S LA VENIPUNCT URE PROTHROMB 02044 COMBINED COMBINED IN TIME 1 PHYSICIAN PHYSICIAN S LA S LA PROTHROMB 47912 COMBINED COMBINED IN TIME 1 PHYSICIAN PHYSICIAN S LA S LA COLLECTIO 30757 COMBINED COMBINED N VENOUS 1 PHYSICIAN PHYSICIAN BLOOD S LA S LA VENIPUNCT URE PROSTATE G0103 COMBINED COMBINED CANCER 1 PHYSICIAN PHYSICIAN SCREENING S LA S LA ; [place] [address] COMBINED COMBINED THYROID 1 PHYSICIAN PHYSICIAN STIMULATI S LA S LA NG HORMONE TSH LIPID 87812 COMBINED COMBINED PANEL 1 PHYSICIAN PHYSICIAN S LA S LA COMPREHEN 63291 COMBINED COMBINED SIVE 1 PHYSICIAN PHYSICIAN METABOLIC S LA S LA PANEL PROTHROMB 72121 COMBINED COMBINED IN TIME 1 PHYSICIAN PHYSICIAN S LA S LA PROTHROMB 64014 COMBINED COMBINED IN TIME 1 PHYSICIAN PHYSICIAN S LA S LA COLLECTIO 99750 COMBINED COMBINED N VENOUS 1 PHYSICIAN PHYSICIAN BLOOD S LA S LA VENIPUNCT URE COLLECTIO 09426 COMBINED COMBINED N VENOUS 1 PHYSICIAN PHYSICIAN BLOOD S LA S LA VENIPUNCT URE PROTHROMB 19522 COMBINED COMBINED IN TIME 1 PHYSICIAN PHYSICIAN S LA S LA RADIOLOGI 41913 ROSEANNE CRONIN C 0 DON DON EXAMINATI ON CHEST SINGLE VIEW FRONTAL PROTHROMB 82429 COMBINED COMBINED IN TIME 0 PHYSICIAN PHYSICIAN S LA S LA COLLECTIO 61462 COMBINED COMBINED N VENOUS 0 PHYSICIAN PHYSICIAN BLOOD S LA S LA VENIPUNCT URE COLLECTIO 56338 COMBINED COMBINED N VENOUS 0 PHYSICIAN PHYSICIAN BLOOD S LA S LA VENIPUNCT URE PROTHROMB 05232 COMBINED COMBINED IN TIME 0 PHYSICIAN PHYSICIAN S LA S LA COMPREHEN 74228 COMBINED COMBINED SIVE 0 PHYSICIAN PHYSICIAN METABOLIC S LA S LA PANEL LIPID 88628 COMBINED COMBINED PANEL 0 [place] [address] COMBINED COMBINED THYROID 0 PHYSICIAN PHYSICIAN STIMULATI S LA S LA NG HORMONE TSH IIV3 44130 BRACKEN BRACKEN VACCINE 0 CO HEALTH CO HEALTH SPLIT VIRUS 0.5 DEPARTMEN DEPARTMEN ML T T DOSAGE IM USE ADMINISTR G0008 BRACKEN BRACKEN ATION OF 0 CO HEALTH CO HEALTH INFLUENZA VIRUS DEPARTMEN DEPARTMEN VACCINE T T OPHTH 97840 [facility] 0 XM&EVAL COMPRE NEW PT 1/> VST PROTHROMB 91257 COMBINED COMBINED IN TIME 0 PHYSICIAN PHYSICIAN S LA S LA COLLECTIO 16300 COMBINED COMBINED N VENOUS 0 PHYSICIAN PHYSICIAN BLOOD S LA S LA VENIPUNCT URE COLLECTIO 09377 COMBINED COMBINED N VENOUS 0 PHYSICIAN PHYSICIAN BLOOD S LA S LA VENIPUNCT URE PROTHROMB 93600 COMBINED COMBINED IN TIME 0 PHYSICIAN PHYSICIAN S LA S LA PROTHROMB 60265 COMBINED COMBINED IN TIME 0 PHYSICIAN PHYSICIAN S LAB S LAB COLLECTIO 74107 COMBINED COMBINED N VENOUS 0 PHYSICIAN PHYSICIAN BLOOD S LAB S LAB VENIPUNCT URE COLLECTIO 24444 COMBINED COMBINED N VENOUS 0 PHYSICIAN PHYSICIAN BLOOD S LAB S LAB VENIPUNCT URE PROTHROMB 67205 COMBINED COMBINED IN TIME 0 PHYSICIAN PHYSICIAN S LAB S LAB PROTHROMB 84163 COMBINED COMBINED IN TIME 0 PHYSICIAN PHYSICIAN S LAB S LAB COLLECTIO 95138 COMBINED COMBINED N VENOUS 0 PHYSICIAN PHYSICIAN BLOOD S LAB S LAB VENIPUNCT URE BLOOD 87093 COMBINED COMBINED COUNT 0 PHYSICIAN PHYSICIAN COMPLETE S LAB S LAB AUTO&AUTO DIFRNTL WBC ECHO 94442 [facility] FALLUJI, TTHRC R-T 0 PHYSICIAN EMMANUEL Coulter S GROUP W/WOM-MOD E COMPL SPEC&COLR D XTRNL ECG 37034 [facility] KINGSLEY & 48 HR 0 [facility] RECORDING INC INC EXTERNAL 48841 [facility] K[facility] ECG 0 [facility] SCANNING INC INC ANALYSIS REPORT XTRNL ECG 59664 [facility] CONTEH, 0 [facility] S RHYTHM PROF SERV W/I&R [place] [address] [place] [id number] COMBINED COMBINED THYROID 0 PHYSICIAN PHYSICIAN STIMULATI S LAB S LAB NG HORMONE TSH COMPREHEN 84702 COMBINED COMBINED SIVE 0 PHYSICIAN PHYSICIAN METABOLIC S LAB S LAB PANEL LIPID 62141 COMBINED COMBINED PANEL 0 PHYSICIAN PHYSICIAN S LAB S LAB PROTHROMB 29147 COMBINED COMBINED IN TIME 0 PHYSICIAN PHYSICIAN S LAB S LAB BLOOD 19472 COMBINED COMBINED COUNT 0 PHYSICIAN PHYSICIAN COMPLETE S LAB S LAB AUTO&AUTO DIFRNTL WBC COLLECTIO 07229 COMBINED COMBINED N VENOUS 0 PHYSICIAN PHYSICIAN BLOOD S LAB S LAB VENIPUNCT URE COLLECTIO 70996 COMBINED COMBINED N VENOUS 0 PHYSICIAN PHYSICIAN BLOOD S LAB S LAB VENIPUNCT URE PROTHROMB 98122 COMBINED COMBINED IN TIME 0 PHYSICIAN PHYSICIAN S LAB S LAB PROTHROMB 37936 COMBINED COMBINED IN TIME 0 PHYSICIAN PHYSICIAN S LAB S LAB COLLECTIO 44747 COMBINED COMBINED N VENOUS 0 PHYSICIAN PHYSICIAN BLOOD S LAB S LAB VENIPUNCT URE COLLECTIO 01386 COMBINED COMBINED N VENOUS 0 PHYSICIAN PHYSICIAN BLOOD S LAB S LAB VENIPUNCT URE PROTHROMB 46544 COMBINED COMBINED IN TIME 0 PHYSICIAN PHYSICIAN S LAB S LAB PROTHROMB 50781 COMBINED COMBINED IN TIME 0 PHYSICIAN PHYSICIAN S LAB S LAB COLLECTIO 03915 COMBINED COMBINED N VENOUS 0 PHYSICIAN PHYSICIAN BLOOD S LAB S LAB VENIPUNCT URE COLLECTIO 00691 COMBINED COMBINED N VENOUS 9 PHYSICIAN PHYSICIAN BLOOD S LAB S LAB VENIPUNCT URE HEMOGLOBI 43530 COMBINED COMBINED N 9 PHYSICIAN PHYSICIAN GLYCOSYLA S LAB S LAB JEFFY A1C ALBUMIN 97149 COMBINED COMBINED URINE 9 PHYSICIAN PHYSICIAN MICROALBU S LAB S LAB MIN QUANTIATI VE CREATININ 92941 COMBINED COMBINED E OTHER 9 PHYSICIAN PHYSICIAN SOURCE S LAB S LAB LIPID 20392 COMBINED COMBINED PANEL 9 PHYSICIAN PHYSICIAN S LAB S LAB COMPREHEN 68233 COMBINED COMBINED SIVE 9 PHYSICIAN PHYSICIAN [place] [address] COMBINED COMBINED THYROID 9 PHYSICIAN PHYSICIAN STIMULATI S LAB S LAB NG HORMONE TSH RADEX 45085 ROSEANNE CRONIN, SPINE 9 DON R DON R LUMBOSACR AL MINIMUM 4 VIEWS PROTHROMB 58142 COMBINED COMBINED IN TIME 9 PHYSICIAN PHYSICIAN S LAB S LAB COLLECTIO 38418 COMBINED COMBINED N VENOUS 9 PHYSICIAN PHYSICIAN BLOOD S LAB S LAB VENIPUNCT URE COLLECTIO 86826 COMBINED COMBINED N VENOUS 9 PHYSICIAN PHYSICIAN BLOOD S LAB S LAB VENIPUNCT URE PROTHROMB 24388 COMBINED COMBINED IN TIME 9 PHYSICIAN PHYSICIAN S LAB S LAB PROTHROMB 26787 COMBINED COMBINED IN TIME 9 PHYSICIAN PHYSICIAN S LAB S LAB COLLECTIO 65789 COMBINED COMBINED N VENOUS 9 PHYSICIAN PHYSICIAN BLOOD S LAB S LAB VENIPUNCT URE ADMINISTR G0008 ROSEANNE CRONIN, ATION OF 9 DON R DON R INFLUENZA VIRUS VACCINE IIV3 50852 ROSEANNE CRONIN, VACCINE 9 DON R DON R SPLIT VIRUS 0.5 ML DOSAGE IM USE COLLECTIO 35067 COMBINED COMBINED N VENOUS 9 PHYSICIAN PHYSICIAN BLOOD S LAB S LAB VENIPUNCT URE PROTHROMB 72763 COMBINED COMBINED IN TIME 9 PHYSICIAN PHYSICIAN S LAB S LAB PROTHROMB 24596 COMBINED COMBINED IN TIME 9 PHYSICIAN PHYSICIAN S LAB S LAB COLLECTIO 18924 COMBINED COMBINED N VENOUS 9 PHYSICIAN PHYSICIAN BLOOD S LAB S LAB VENIPUNCT URE COLLECTIO 49586 COMBINED COMBINED N VENOUS 9 PHYSICIAN PHYSICIAN BLOOD S LAB S LAB VENIPUNCT URE PROTHROMB 10463 COMBINED COMBINED IN TIME 9 PHYSICIAN PHYSICIAN S LAB S LAB PROTHROMB 35589 COMBINED COMBINED IN TIME 9 PHYSICIAN PHYSICIAN S LAB S LAB COLLECTIO 77741 COMBINED COMBINED N VENOUS 9 PHYSICIAN PHYSICIAN BLOOD S LAB S LAB VENIPUNCT URE COLLECTIO 49899 COMBINED COMBINED N VENOUS 9 PHYSICIAN PHYSICIAN BLOOD S LAB S LAB VENIPUNCT URE PROTHROMB 84711 COMBINED COMBINED IN TIME 9 PHYSICIAN PHYSICIAN S LAB S LAB PROTHROMB 40118 COMBINED COMBINED IN TIME 9 PHYSICIAN PHYSICIAN S LAB S LAB ECG 38765 ROSEANNE CRONIN, LUCY 9 DON R DON R ECG W/LEAST 12 LDS W/I&R RADIOLOGI 12461 ROSEANNE CRONIN, C 9 DON R DON R EXAMINATI ON CHEST SINGLE VIEW FRONTAL COLLECTIO 55416 COMBINED COMBINED N VENOUS 9 PHYSICIAN PHYSICIAN BLOOD S LAB S LAB VENIPUNCT URE COLLECTIO 40046 COMBINED COMBINED N VENOUS 9 PHYSICIAN PHYSICIAN BLOOD S LAB S LAB VENIPUNCT URE PROTHROMB 02413 COMBINED COMBINED IN TIME 9 PHYSIC[place] [address] COMBINED COMBINED THYROID 9 PHYSICIAN PHYSICIAN STIMULATI S LAB S LAB NG HORMONE TSH COLLECTIO 76701 COMBINED COMBINED N VENOUS 9 PHYSICIAN PHYSICIAN BLOOD S LAB S LAB VENIPUNCT URE PROTHROMB 68729 COMBINED COMBINED IN TIME 9 PHYSIC[place] [address] COMBINED COMBINED PROSTATE 9 PHYSICIAN PHYSICIAN SPECIFIC S LAB S LAB ANTIGEN TOTAL BLOOD 57400 COMBINED COMBINED COUNT 9 PHYSICIAN PHYSICIAN COMPLETE S LAB S LAB AUTO&AUTO DIFRNTL WBC COMPREHEN 03326 COMBINED COMBINED SIVE 9 PHYSICIAN PHYSICIAN METABOLIC S LAB S LAB PANEL LIPID 61534 COMBINED COMBINED PANEL 9 PHYSICIAN PHYSICIAN S LAB S LAB PROTHROMB 05716 COMBINED COMBINED IN TIME 9 PHYSICIAN PHYSICIAN S LAB S LAB COLLECTIO 80853 COMBINED COMBINED N VENOUS 9 PHYSICIAN PHYSICIAN BLOOD S LAB S LAB VENIPUNCT URE COLLECTIO 58228 COMBINED COMBINED N VENOUS 8 PHYSICIAN PHYSICIAN BLOOD S LAB S LAB VENIPUNCT URE PROTHROMB 95922 COMBINED COMBINED IN TIME 8 PHYSICIAN PHYSICIAN S LAB S LAB PROTHROMB 33754 COMBINED COMBINED IN TIME 8 PHYSICIAN PHYSICIAN S LAB S LAB COLLECTIO 66366 COMBINED COMBINED N VENOUS 8 PHYSICIAN PHYSICIAN BLOOD S LAB S LAB VENIPUNCT URE COLLECTIO 40995 COMBINED COMBINED N VENOUS 8 PHYSICIAN PHYSICIAN BLOOD S LAB S LAB VENIPUNCT URE PROTHROMB 62047 COMBINED COMBINED IN TIME 8 PHYSICIAN PHYSICIAN S LAB S LAB ADMINISTR G0008 ROSEANNE CRONIN, ATION OF 8 DON R DON R INFLUENZA VIRUS VACCINE PPSV23 75370 ROSEANNE CRONIN, VACCINE 2 8 DON R DON R YRS OR OLDER FOR SUBQ/IM USE ADMINISTR G0009 ROSEANNE CRONIN, ATION OF 8 DON R DON R PNEUMOCOC MAYCO VACCINE IIV3 19101 ROSEANNE CRONIN, VACCINE 8 DON R DON R SPLIT VIRUS 0.5 ML DOSAGE IM USE BREAST 84454 [place] [facility] Ferrari TIME IMAGING W/IMAGE ASSOCIATE DOCUMENTA S TION MAMMOGRAP 27735 [facility] HY 8 [facility] BILATERAL INC INC SHAVING 87926 [facility] SKIN 8 , LEAH , LEAH LESION 1 F/E/E/N/L /M DIAM 0.5 CM/< COLLECTIO 26437 [facility] N VENOUS 8 [facility] BLOOD [facility] INC VENIPUNCT URE COMPREHEN 45589 [facility] SIVE 8 [facility] METABOLIC INC INC PANEL Encounters Encounter Start End Date Code Location Performer Type Date OFFICE 67822 [facility] MINUT[facility] OFF[facility] 19634 [facility] MIN[facility]ES [facility] 90983 [facility] T [facility] 41979 [facility] 7 7 [facility]YSIC[facility] T VISIT S GROUP 25 MINUTES OFFICE 35335 [facility] 7 [facility] MIN[facility] OFFICE 29593 [facility] 7 7 [facility] 15 [facility] MINUTES OFFICE 76671 [facility] 7 7 [facility] MIN[facility] - [facility] 6 [facility] 33529 [facility] 6 6 PHYSICIAN T VISIT S GROUP 25 MINUTES [facility]OSPITAL TEETEE - 6 6 [facility] T OFFICE 20736 [facility] 6 6 [facility] 15 CTR MINUT[facility] OFFICE 55008 [facility] 6 6 [facility] T V[facility] 15 CTR MINUTES OFFICE 28698 [facility] 6 6 [facility] T V[facility] 15 CTR MINUT[facility] OFFICE 70147 [facility] 6 6 [facility] T VISIT HEALTH 25 CTR MINUTES OFFICE 68948 [facility] OUTPAT[facility] 6 6 PHYSICIAN MAT T VISIT S GROUP 15 MINUTES [facility]OSP[facility] TEETEE - 6 6 [facility] T OFFICE 64169 [facility] 6 6 PHYSICIAN MAT T VISIT S GROUP 25 MINUTES HOSPITAL TEETEE - 5 5 [facility] T OFFICE 69523 [facility] OUTPATIEN 5 5 CULAR MAT T VISIT CONSULTAN 25 TS O MINUTES OFFICE 25848 [facility] OUTPATIEN 5 5 CULAR MAT T VISIT CONSULTAN 25 TS O MINUTES HOSPITAL TEETEE - 4 4 [facility] - 4 4 [facility] TEETEE [facility] 4 4 [facility] OUTPAT[facility]EN [facility] OFFICE 52101 JUAQUIN [facility]ZA OUTPATIEN 4 4 [facility] 20 MINUTES HOSPITAL TEETEE - 4 4 [facility]IEN [facility] TE[facility] - 4 4 [facility] OFFICE 60434 CRONIN CRONIN OUTPAT[facility]EN 3 3 DON DON T VISIT 15 MINUT[facility] HOSPITAL TEETEE - 2 2 [facility] OUTPATIEN [facility] OFFICE 76184 FALLUJI FALLUJI OUTPATIEN 2 2 FAWN FAWN T VISIT 25 MINUTES OFFICE 81604 CRONIN CRONIN OUTPATIEN 2 2 DON DON T VISIT 15 MINUTES HOSPITAL TEETEE - 1 1 [facility] OUTPATIEN [facility] OFFICE 59031 CRONIN CRONIN OUTPATIEN 1 1 DON DON T VISIT 15 MINUTES OFFICE 62953 CRONIN CRONIN OUTPATIEN 1 1 DON DON T VISIT 15 MINUTES OFFICE 83590 [facility] FALLUJI OUTPATIEN 1 1 PHYSICIAN FAWN T VISIT S GROUP 25 MINUTES OFFICE 65456 CRONIN CRONIN OUTPATIEN 1 1 DON DON T VISIT 15 MINUTES OFFICE 15085 [facility] OUTPATIEN 0 0 PHYSICIAN FAWN T VISIT S GROUP 25 MINUTES OFFICE 57565 [facility] 0 0 DON DON T VISIT 25 MINUTES OFFICE 85688 [facility] OUTPATIEN 0 0 PHYSICIAN FAWN T VISIT S GROUP 25 MINUTES OFFICE 53136 [facility]IN[facility] CRONIN OUTPATIEN 0 0 DON DON T VISIT 15 MINUTES OFFICE 15901 [facility] 0 0 DON DON T VISIT 15 MINUTES OFFICE 42667 ROSEANNE CRONIN, OUTPATIEN 0 0 DON R DON R T VISIT 15 MINUTES OFFICE 61734 [facility], OUTPATIEN 0 0 PHYSICIAN EMMANUEL M T VISIT S GROUP 25 MINUTES HOSPITAL TEETEE - 0 0 [facility] T [facility] TEETEE - 0 0 [facility] INC T OFFICE 00766 [facility], OUTPATIEN 0 0 PHYSICIAN EMMANUEL M T VISIT S GROUP 25 MINUTES OFFICE 25987 ROSEANNE CRONIN, OUTPATIEN 0 0 DON R DON R T VISIT 15 MINUTES OFFICE 84527 ROSEANNE CRONIN OUTPATIEN 0 0 DON R DON R T VISIT 15 MINUTES OFFICE 31921 ROSEANNE CRONIN OUTPATIEN 9 9 DON R DON R T VISIT 15 MINUTES OFFICE 28915 ROSEANNE CRONIN OUTPATIEN 9 9 DON R DON R T VISIT 15 MINUTES OFFICE 34148 ROSEANNE CRONIN, OUTPATIEN 9 9 DON R DON R T VISIT 15 MINUTES OFFICE 83742 ROSEANNE CRONIN OUTPATIEN 9 9 DON R DON R T VISIT 15 MINUTES OFFICE 20754 ROSEANNE CRONIN OUTPATIEN 9 9 DON R DON R T VISIT 15 MINUTES OFFICE 60152 ROSEANNE CRONIN OUTPATIEN 8 8 DON R DON R T VISIT 15 MINUTES OFFICE 74609 ROSEANNE CRONIN OUTPATIEN 8 8 DON R DON R T VISIT 15 MINUTES OFFICE 70998 [facility] OUTPATIEN 8 8 , LEAH LYNN T VISIT 15 MINUTES HOSPITAL TEETEE - 8 8 [facility] T OFFICE 14037 [facility] CONSULTAT 8 8 , LEAH LYNN ION NEW/ESTAB PATIENT 40 MIN OFFICE 15042 ROSEANNE CRONIN OUTPATIEN 8 8 DON R DON R T VISIT 15 MINUTES OFFICE 01790 [place] BARBIE JEFFRIESPATICATARINA 8 8 HEART & NEZAR M T VISIT VASCULAR 25 ASSOC MINUTES OFFICE 78704 ROSEANNE CRONIN OUTPATIEN 8 8 DON R DON R T VISIT 15 MINUTES OFFICE 72842 ROSEANNE CRONIN OUTPATIEN 8 8 DON R DON R T VISIT 15 MINUTES OFFICE 36963 [place] CHRISTY JEFFRIES 8 8 HEART & NEZAR M T VISIT VASCULAR 25 ASSOC MINUTES OFFICE 39117 ROSEANNE CRONIN OUTPATIEN 8 8 DON R DON R T VISIT 15 MINUTES OFFICE 29898 ROSEANNE CRONIN OUTPATIEN 8 8 DON R DON R T VISIT 15 MINUTES HOSPITAL TEETEE - 8 8 [facility] INC T OFFICE 42217 ROSEANNE CRONIN OUTPATIEN 8 8 DON R DON R T VISIT 15 MINUTES OFFICE 13164 ROSEANNE CRONIN OUTPATIEN 8 8 DON R DON R T VISIT 15 MINUTES
--- OUTSIDE RECORDS SUMMARY | 2017-08-15 10:35 | External Medical Summary Rpt ---
Author Author , GRACY DUBOSE Address Unknown Phone [email or web address] Care Team Providers Care Assembly Associate Name Role Phone VALERIE APONTE, Unavailable Unavailable VALERIE APONTE DEZ II, DEZ II Unavailable Unavailable RANJEET, RAJNEET Unavailable Unavailable BESSON ANNABEL, BESSON Unavailable Unavailable ANNABEL [facility] Unavailable Unavailable DEPARTMENT, [facility] DEPARTMENT [facility] Unavailable Unavailable DEPARTMENT, [facility] DEPARTMENT CARDIOVASCULAR Unavailable Unavailable CONSULTANTS O, [...] GURPREET WILSON CAMACHO, WILSON CAMACHO Unavailable Unavailable [facility], Unavailable Unavailable [facility] Unavailable Unavailable IMAGING [facility], [facility] Unavailable Unavailable [facility], [facility] MORROW, MORROW Unavailable Unavailable [...] CTR LIPID RICH PLAQUE E785 HYPERLIPIDE 05-01-2017 [facility] UNSPECIFIED GROUP I119 HYPERTENSIV 05-01-2017 [facility] E HEART PHYSICIANS DISEASE GROUP WITHOUT HEART FAILURE I2510 ASHD KLETSEL DEHE WINTUN 05-01-2017 [facility] 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 ANGINA PECTORIS I4892 UNSPECIFIED 05-01-2017 [facility] ATRIAL PHYSICIANS FLUTTER GROUP R251 TREMOR 05-01-2017 [facility] UNSPECIFIED PHYSICIANS GROUP 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[facility] 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 E039 HYPOTHYROID 02-26-2017 [facility] ISM [facility] UNSPECIFIED HEALTH CTR I509 HEART 02-26-2017 [facility] FAILURE FAMILY UNSPECIFIED HEALTH CTR Z5181 ENCOUNTER 02-26-2017 [facility] FOR FAMILY THERAPEUTIC HEALTH CTR DRUG LEVEL MONITORING 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 02-26-2017 [facility] CURRENT USE FAMILY OF HEALTH CTR ANTICOAGULA NTS Z760 ENCOUNTER 01-15-2017 [facility] FOR ISSUE FAMILY OF REPEAT HEALTH CTR PRESCRIPTIO N 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 10-24-2016 [facility] TRICUS[facility] SERV [facility] INSUFFICIEN CY I371 NONRHEUMATI 10-24-2016 [facility] PULMONARY SERV [facility] INSUFFICIEN CY R60269 SPONDYLOSIS 09-12-2016 RAD[facility] W/O INC MYELOPATH/R ADICULOPATH [...] [facility] E079 DISORDER OF 05-02-2016 [facility] THYROID PHYSICIANS UNSPECIFIED GROUP B028 ZOSTER WITH 04-12-2016 [facility] OTHER FAMILY COMPLICATIO HEALTH CTR NS G250 ESSENTIAL 04-12-2016 [facility] TREMOR FAMILY HEALTH CTR I38 ENDOCARDITI 02-01-2016 [facility] S VALVE PHYSICIANS UNSPECIFIED GROUP G252 OTHER 10-27-2015 [facility] SPECIFIED FAMILY FORMS OF HEALTH CTR TREMOR I999 UNSPECIFIED 10-27-2015 [facility] DISORDER FAMILY OF HEALTH CTR CIRCULATORY SYSTEM M159 POLYOSTEOAR 10-27-2015 [facility] THRITIS FAMILY UNSPECIFIED HEALTH CTR 50592 UNSPEC HTN 08-03-2015 [facility] HE[facility]AR DISEASE CONSULTANTS WITHOUT O HEART FAIL 39008 COR 08-03-2015 [facility] ATHEROSLERO LAR UNSPEC CONSULTANTS TYPE VESSEL O KLETSEL DEHE WINTUN/RUCHI T 53431 OTHER 08-03-2015 [facility] ENDOCARDITI LAR S VALVE CONSULTANTS [place]PECIFIED O 36502 ATRIAL 08-03-2015 [facility] FLUTTER [place]AR [facility] O 23603 EFFUSION OF 05-31-2015 [facility] ANKLE AND INC FOOT JOINT V714 OBSERVATION 05-31-2015 [facility] FOLLOWING INC OTHER ACCIDENT 32991 PAIN IN 05-22-2015 [place] [facility] FOOT 7295 PAIN IN 05-22-2015 [place] SOFT MEDICAL TISSUES OF IMAGING ASS LIMB 9597 INJURY 05-22-2015 [place] OTHER&UNSPE MEDICAL CIFIED KNEE IMAGING ASS LEG ANKLE&FOOT 2724 OTHER AND 05-03-2015 [facility] UNSPECIFIED LAR CONSULTANTS HYPERLIPIDE O BORA 40487 ATRIAL 05-03-2015 [facility] FIBRILLATIO LAR N CONSULTANTS O V5861 LONG-TERM 03-25-2014 [facility] (CURRENT) [facility] USE OF INC ANTICOAGULA NTS 5119 UNSPECIFIED 03-11-2014 [facility] PLEURAL LILLIE EFFUSION 5180 PULMONARY 03-11-2014 [facility] COLLAPSE LILLIE 02419 OTHER 03-11-2014 [facility] DISEASES OF LILLIE LUNG NOT ELSEWHERE CLASSIFIED 62639 SHORTNESS 03-11-2014 [facility] OF BREATH [facility] INC 10343 CHEST PAIN 03-11-2014 [facility] UNSPECIFIED [facility] INC E8889 UNSPECIFIED 03-11-2014 BEL[facility] FALL LILLIE 2449 UNSPECIFIED 03-04-2014 JUAQUIN DEISY HYPOTHYROID ISM 9221 CONTUSION 03-04-2014 [facility] OF CHEST [facility] WALL INC 4019 UNSPECIFIED 01-03-2014 [facility] ESSENTIAL [facility] HYPERTENSIO INC N 4139 OTHER AND 01-03-2014 [facility] UNSPECIFIED [facility] ANGINA INC PECTORIS 31599 ACUT NE 11-30-2013 [facility] SUBENDOCARD [facility] IAL INFARCT INC SUBSQT EPIS CARE 60051 OTHER CHEST 11-30-2013 [facility] PAIN [facility] INC V4509 OTHER 11-30-2013 [facility] SPECIFIED [facility] CARDIAC INC DEVICE IN SITU V4582 POSTSURG 11-30-2013 [facility] PERCUT [facility] TRANSLUMINA INC L COR ANGPLSTY STS V5869 LONG-TERM 11-30-2013 [facility] (CURRENT) [facility] USE OF INC OTHER MEDICATIONS 08176 ACUT NE 11-18-2013 [facility] LE[facility] SUBENDOCARD DWI IAL INFARCT INIT EPIS CARE 80078 CORONARY 11-18-2013 [facility] ATHEROSCLER DWI OSIS KLETSEL DEHE WINTUN CORONARY ARTERY 7062 SEBACEOUS 01-31-2013 [facility] CYST DON 4149 UNSPECIFIED 11-18-2012 [facility] CHRONIC DON ISCHEMIC HEART DISEASE 25526 NUCLEAR 09-17-2012 [facility] GURPREET SCLEROSIS 71488 VITREOUS 06-25-2012 JANETTE SALAZARERATIO JAM N 18203 ATHEROSLERO 04-25-2012 [place] [facility]ICAL EXTREM IM[facility]ING ASS W/INTERMIT CLAUDICAT 09963 ATHEROSLERO 04-25-2012 [place] KLETSEL DEHE [place] ART MEDICAL IMAGING ASS EXTREMITIES W/REST PAIN 4439 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 [facility] 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-18-2012 NESHA AUGUSTINE VALVE DISORDERS 79042 HEMATURIA 12-04-2011 [facility] UNSPECIFIED DON 7823 EDEMA 12-04-2011 [facility] DON 8472 LUMBAR 12-04-2011 RO[facility] SPRAIN AND DON STRAIN V7644 SPECIAL 09-01-2011 [facility] SCREENING PHYSICIANS MALIGNANT LA NEOPLASM OF PROSTATE V0481 NEED 07-14-2011 [facility] PROPHYLACTI HEALTH C DEPARTMENT VACCINATION &INOCULATIO N FLU 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[facility] VALVE PHYSICIANS DISORDERS GROUP 3668 OTHER 12-26-2010 ROSEANNE CATARACT DON 34843 HEMOPTYSIS 09-27-2010 CRONIN UNSPECIFIED DON 9211 CONTUSION 08-08-2010 CRONIN OF EYELIDS DON AND PERIOCULAR AREA 71374 DIAB W/O 07-15-2010 COMBIN[facility] COMP TYPE PHYSICIANS II/UNS NOT LA STATED UNCNTRL 92523 OTHER 02-07-2010 [facility] RESPIRATORY PROF SERV ABNORMALITI ES 2720 PURE 01-18-2010 RO[facility] HYPERCHOLES DON R TEROLEMIA 4011 ESSENTIAL 01-18-2010 [facility] HYPERTENSIO DON R N, BENIGN 4659 ACUTE URIS 11-22-2009 RO[facility] OF DON R UNSPECIFIED SITE 40875 CONTUSION 07-28-2009 RO[facility] OF LOWER DON R LEG 496 CHRONIC 02-26-2009 RO[facility] AIRWAY DON R OBSTRUCTION NEC V4581 POSTSURGICA 02-26-2009 ROSEANNE L DON R AORTOCORONA RY BYPASS STATUS 6019 UNSPECIFIED 01-28-2009 [facility] PROSTATITIS LAB 67798 ENDOCARDITI 01-26-2009 ROSEANNE S VALVE DON R UNSPECIFIED UNSPECIFIED CAUSE 460 ACUTE 01-26-2009 RO[facility] NASOPHARYNG DON R ITIS 53306 HYPERTROPHY 01-26-2009 ROSEANNE PROSTATE DON R W/O UR OBST & OTH LUTS 84173 PAIN IN 12-28-2008 COM[facility]ED JOINT, SITE PHYSICIANS LAB UNSPECIFIED 91347 UNSPECIFIED 09-23-2008 RO[facility] ORCHITIS DON R AND EPIDIDYMITI S 6111 HYPERTROPHY 08-25-2008 ROSEANNE, OF BREAST DON R V0382 NEED PROPH 08-25-2008 RO[facility] VACCINATION DON R AGAINST STREP PNEUMONE 27116 MASTODYNIA 08-20-2008 LEAH JESUS 41812 OTHER SIGN 08-17-2008 [place] [facility] 6119 UNSPECIFIED 08-17-[address] 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 CTR CTR CENTER VISIT ESTAB PT FEDERALLY G0467 [facility] CO 7 [facility] CENTER [place] ESTAB [place] ECG 29747 [facility] [place] ROUTINE 6 [facility] ECG INC INC W/LEAST 12 LDS TRCG ONLY W/O I&R ECHO 86821 [place] [facility] R-T 6 MEDICAL 2D SERV W/WOM-MOD FOUNDATIO E COMPL N SPEC&COLR D THERAPEUT 31649 [facility] IC 6 [facility] TIC/DX CTR CTR INJECTION SUBQ/IM RADEX 31656 RADIOLOGY RANJEET SPINE 6 INC CERVICAL 2 OR 3 VIEWS FEDERALLY G0467 [facility] 6 [facility] CTR CTR CENTER VISIT ESTAB PT FEDERALLY G0467 [facility] CO 6 [facility] CTR CTR CENTER VISIT ESTAB PT COLLECTIO 02200 [facility] N 6 [facility] BLOOD CTR CTR SPECIMEN FEDERALLY G0467 [facility] WERO CO 6 [facility] CTR CTR CENTER VISIT ESTAB PT FEDERALLY G0467 [facility] WERO CO 6 [facility] CTR CTR CENTER VISIT ESTAB PT COLLECTIO 19211 [facility] CO N VENOUS 6 [facility] VENIPUNCT CTR CTR URE FEDERALLY G0467 [facility] NEUS ANNABEL 6 [facility] CTR CENTER VISIT [place]AB [place] ECG 01442 [facility] ROUTINE 6 [facility] ECG INC INC W/LEAST 12 LDS TRCG ONLY W/O I&R ECG 18177 CARDIOVAS CARDIOVAS ROUTINE 5 CULAR CULAR ECG CONSULTAN CONSULTAN W/LEAST TS O TS O 12 LDS I&R ONLY FEDERALLY G0467 [facility] [place] ANNABEL 5 [facility] CTR CENTER [place]ISIT ESTAB [place] ECHO 82592 [place] [facility] R-T 5 MEDICAL [place] FAY 2D SERV W/WOM-MOD FOUNDATIO E COMPL N SPEC&COLR D ECG 44142 CARDIOVAS CARDIOVAS ROUTINE 5 CULAR CULAR ECG CONSULTAN CONSULTAN W/LEAST TS O TS O 12 LDS I&R ONLY RADEX 28151 RADIOLOGY RESENDEZ GRA ANKLE 5 INC COMPLETE MINIMUM 3 VIEWS RADEX 54668 [place] [facility] FOOT 5 MEDICAL LILLIE COMPLETE IMAGING MINIMUM 3 ASS VIEWS RADEX 21493 [place] [facility] ANKLE 5 MEDICAL LILLIE COMPLETE IMAGING MINIMUM 3 ASS VIEWS ECG 36636 CARDIOVAS TAMMY ROUTINE 5 CULAR MAT ECG CONSULTAN W/LEAST TS O 12 LDS W/I&R ECG 28862 CARDIOVAS TAMMY ROUTINE 5 CULAR MAT ECG CONSULTAN W/LEAST TS O 12 LDS W/I&R ECG 57449 CARDIOVAS CARDIOVAS ROUTINE 4 CULAR CULAR ECG CONSULTAN CONSULTAN W/LEAST TS O TS O 12 LDS W/I&R ECHO 86622 CARDIOVAS TAMMY [facility] R-T 4 CULAR MAT 2D CONSULTAN W/WOM-MOD TS O E COMPL SPEC&COLR D ECG 18252 CARDIOVAS CARDIOVAS ROUTINE 4 CULAR CULAR ECG CONSULTAN CONSULTAN W/LEAST TS O TS O 12 LDS W/I&R HOSPITAL G0463 [facility] OUTPATIEN 4 [facility] T CLIN INC INC VISIT ASSESS & MGMT PT 3D 47270 BELÉN BELÉN RENDERING 4 LILLIE LILLIE W/INTERP & POSTPROCE SS SUPERVISI ON CT THORAX 51494 BELÉN BELÉN W/O 4 LILLIE LILLIE CONTRAST MATERIAL RADEX 23006 [facility] RIBS UNI [address] [facility] W/POSTERO INC INC ANT CH MINIMUM 3 VIEWS HOSPITAL G0463 [facility] OUTPATIEN 4 [facility] HOSP T CLIN INC INC VISIT ASSESS & MGMT PT ECG 75914 TE[facility] [place] ROUTINE 4 [facility] HOSP ECG INC INC W/LEAST 12 LDS TRCG ONLY W/O I&R RADIOLOGI 96214 TE[facility]EE [facility] C EXAM 4 [facility] HOSP CHEST 2 INC INC VIEWS FRONTAL&L ATERAL ECG 23264 JUAQUIN REZA ROUTINE 4 DEISY DEISY ECG W/LEAST 12 LDS I&R ONLY DUPLEX 67777 TE[facility] SCAN 4 [facility] HOSP EXTRACRAN INC INC IAL ART COMPL BI STUDY ECG 33419 ENRIQUETA ROBISON ROUTINE 4 ANNABEL ANNABEL ECG W/LEAST 12 LDS I&R ONLY ECG 20530 TE[facility] [place] ROUTINE [address] [facility] INC INC W/LEAST 12 LDS TRCG ONLY W/O I&R RADIOLOGI 14493 TEETEE K[facility] C 4 [facility] HOSP EXAMINATI INC INC ON CHEST SINGLE VIEW FRONTAL ECG 46228 WERO CONTEH JR ROUTINE 4 DWI DWI ECG W/LEAST 12 LDS I&R ONLY INCISION 54576 ROSEANNE CRONIN & 3 DON DON DRAINAGE ABSCESS SIMPLE/SI NGLE CATARACT 85749 [facility] B[facility]OCK REMOVAL 2 GURPREET GURPREET INSERTION OF LENS CATARACT 71878 [facility] BABCOCK REMOVAL 2 GURPREET GURPREET INSERTION OF LENS DETERMINA 10435 JANETTE SAVAGE TION 2 BENITEZ MARQUIS REFRACTIV E STATE OPHTHALMO 59564 JANETTE WASHBURN SCPY 2 BENITEZ JR DON EXTENDED RETINAL DRAWING I&R 1ST OPHTHALMO 39041 JANETTE BASHIR SCPY 2 BENITEZ U-STURZ EXTENDED ION RETINAL DRAWING I&R 1ST NON-INVAS 60472 [facility] MEREDITH 2 [facility] HOSP PHYSIOLOG INC INC IC STUDY EXTREMITY 3 LEVLS ECHO 63678 TEETEE K[facility] TTHRC R-T [address] [facility] INC W/WOM-MOD E COMPL SPEC&COLR D COLLECTIO 54493 COMBINED COMBINED N VENOUS 1 PHYSICIAN PHYSICIAN BLOOD S LA S LA VENIPUNCT URE PROTHROMB 04933 COMBINED COMBINED IN TIME 1 PHYSICIAN PHYSICIAN S LA S LA PROTHROMB 40442 COMBINED COMBINED IN TIME 1 PHYSICIAN PHYSICIAN S LA S LA COLLECTIO 56810 COMBINED COMBINED N VENOUS 1 PHYSICIAN PHYSICIAN BLOOD S LA S LA VENIPUNCT URE ADMINISTR G0008 BRACKEN BRACKEN ATION OF 1 [facility] HEALTH INFLUENZA VIRUS DEPARTMEN DEPARTMEN VACCINE T T INFLUENZA Q2036 [facility]ACK[facility] BRACKEN VACC 1 CO [facility] CO HEALTH SPLIT VIRUS 3 DEPARTMEN DEPARTMEN YRS & > T T IM FLULAVAL PROTHROMB 49432 COMBINED COMBINED IN TIME 1 PHYSICIAN PHYSICIAN S LA S LA COLLECTIO 13213 COMBINED COMBINED N VENOUS 1 PHYSICIAN PHYSICIAN BLOOD S LA S LA VENIPUNCT URE COLLECTIO 60164 COMBINED COMBINED N VENOUS 1 PHYSICIAN PHYSICIAN BLOOD S LA S LA VENIPUNCT URE PROTHROMB 60232 COMBINED COMBINED IN TIME 1 PHYSICIAN PHYSICIAN S LA S LA PROTHROMB 63748 COMBINED COMBINED IN TIME 1 PHYSICIAN PHYSICIAN S LA S LA COLLECTIO 06712 COMBINED COMBINED N VENOUS 1 PHYSICIAN PHYSICIAN BLOOD S LA S LA VENIPUNCT URE PROSTATE G0103 COMBINED COMBINED CANCER 1 PHYSICIAN PHYSICIAN SCREENING S LA S [place] ; [place] [address] COMBINED COMBINED THYROID 1 PHYSICIAN PHYSICIAN STIMULATI S LA S LA NG HORMONE TSH LIPID 70450 COMBINED COMBINED PANEL 1 PHYSICIAN PHYSICIAN S LA S LA COMPREHEN 72765 COMBINED COMBINED SIVE 1 PHYSICIAN PHYSICIAN METABOLIC S LA S LA PANEL PROTHROMB 14824 COMBINED COMBINED IN TIME 1 PHYSICIAN PHYSICIAN S LA S LA PROTHROMB 49495 COMBINED COMBINED IN TIME 1 PHYSICIAN PHYSICIAN S LA S LA COLLECTIO 81990 COMBINED COMBINED N VENOUS 1 PHYSICIAN PHYSICIAN BLOOD S LA S LA VENIPUNCT URE COLLECTIO 66739 COMBINED COMBINED N VENOUS 1 PHYSICIAN PHYSICIAN BLOOD S LA S LA VENIPUNCT URE PROTHROMB 79953 COMBINED COMBINED IN TIME 1 PHYSICIAN PHYSICIAN S LA S LA RADIOLOGI 22528 ROSEANNE CRONIN C 0 DON DON EXAMINATI ON CHEST SINGLE VIEW FRONTAL PROTHROMB 45960 COMBINED COMBINED IN TIME 0 PHYSICIAN PHYSICIAN S LA S LA COLLECTIO 55112 COMBINED COMBINED N VENOUS 0 PHYSICIAN PHYSICIAN BLOOD S LA S LA VENIPUNCT URE COLLECTIO 01976 COMBINED COMBINED N VENOUS 0 PHYSICIAN PHYSICIAN BLOOD S LA S LA VENIPUNCT URE PROTHROMB 99882 COMBINED COMBINED IN TIME 0 PHYSICIAN PHYSICIAN S LA S LA COMPREHEN 22711 COMBINED COMBINED SIVE 0 PHYSICIAN PHYSICIAN METABOLIC S LA S LA PANEL LIPID 24191 COMBINED COMBINED PANEL 0 [place] [address] COMBINED COMBINED THYROID 0 PHYSICIAN PHYSICIAN STIMULATI S LA S LA NG HORMONE TSH IIV3 76114 BRACKEN BRACKEN VACCINE 0 CO HEALTH CO HEALTH SPLIT VIRUS 0.5 DEPARTMEN DEPARTMEN ML T T DOSAGE IM USE ADMINISTR G0008 BRACKEN BRACKEN ATION OF 0 CO HEALTH CO HEALTH INFLUENZA VIRUS DEPARTMEN DEPARTMEN VACCINE T T OPHTH 09505 [facility] 0 XM&EVAL COMPRE NEW PT 1/> VST PROTHROMB 55937 COMBINED COMBINED IN TIME 0 PHYSICIAN PHYSICIAN S LA S LA COLLECTIO 30061 COMBINED COMBINED N VENOUS 0 PHYSICIAN PHYSICIAN BLOOD S LA S LA VENIPUNCT URE COLLECTIO 53780 COMBINED COMBINED N VENOUS 0 PHYSICIAN PHYSICIAN BLOOD S LA S LA VENIPUNCT URE PROTHROMB 00659 COMBINED COMBINED IN TIME 0 PHYSICIAN PHYSICIAN S LA S LA PROTHROMB 26635 COMBINED COMBINED IN TIME 0 PHYSICIAN PHYSICIAN S LAB S LAB COLLECTIO 67879 COMBINED COMBINED N VENOUS 0 PHYSICIAN PHYSICIAN BLOOD S LAB S LAB VENIPUNCT URE COLLECTIO 02962 COMBINED COMBINED N VENOUS 0 PHYSICIAN PHYSICIAN BLOOD S LAB S LAB VENIPUNCT URE PROTHROMB 63931 COMBINED COMBINED IN TIME 0 PHYSICIAN PHYSICIAN S LAB S LAB PROTHROMB 95739 COMBINED COMBINED IN TIME 0 PHYSICIAN PHYSICIAN S LAB S LAB COLLECTIO 27529 COMBINED COMBINED N VENOUS 0 PHYSICIAN PHYSICIAN BLOOD S LAB S LAB VENIPUNCT URE BLOOD 77741 COMBINED COMBINED COUNT 0 PHYSICIAN PHYSICIAN COMPLETE S LAB S LAB AUTO&AUTO DIFRNTL WBC ECHO 50282 [facility], [facility] R-T 0 PHYSICIAN EMMANUEL Coulter S GROUP W/WOM-MOD E COMPL SPEC&COLR D XTRNL ECG 19629 TEETEE [facility] & 48 HR 0 [facility] RECORDING INC INC EXTERNAL 41168 [facility] ECG 0 [facility] SCANNING INC INC ANALYSIS REPORT XTRNL ECG 39072 TEETEE CONTEH, 0 [facility] S RHYTHM PROF SERV W/I&R UP [place] [address] [place] [address] COMBINED COMBINED THYROID 0 PHYSICIAN PHYSICIAN STIMULATI S LAB S LAB NG HORMONE TSH COMPREHEN 61693 COMBINED COMBINED SIVE 0 PHYSICIAN PHYSICIAN METABOLIC S LAB S LAB PANEL LIPID 40645 COMBINED COMBINED PANEL 0 PHYSICIAN PHYSICIAN S LAB S LAB PROTHROMB 45654 COMBINED COMBINED IN TIME 0 PHYSICIAN PHYSICIAN S LAB S LAB BLOOD 90278 COMBINED COMBINED COUNT 0 PHYSICIAN PHYSICIAN COMPLETE S LAB S LAB AUTO&AUTO DIFRNTL WBC COLLECTIO 36737 COMBINED COMBINED N VENOUS 0 PHYSICIAN PHYSICIAN BLOOD S LAB S LAB VENIPUNCT URE COLLECTIO 72778 COMBINED COMBINED N VENOUS 0 PHYSICIAN PHYSICIAN BLOOD S LAB S LAB VENIPUNCT URE PROTHROMB 99152 COMBINED COMBINED IN TIME 0 PHYSICIAN PHYSICIAN S LAB S LAB PROTHROMB 41369 COMBINED COMBINED IN TIME 0 PHYSICIAN PHYSICIAN S LAB S LAB COLLECTIO 11144 COMBINED COMBINED N VENOUS 0 PHYSICIAN PHYSICIAN BLOOD S LAB S LAB VENIPUNCT URE COLLECTIO 33187 COMBINED COMBINED N VENOUS 0 PHYSICIAN PHYSICIAN BLOOD S LAB S LAB VENIPUNCT URE PROTHROMB 75174 COMBINED COMBINED IN TIME 0 PHYSICIAN PHYSICIAN S LAB S LAB PROTHROMB 33187 COMBINED COMBINED IN TIME 0 PHYSICIAN PHYSICIAN S LAB S LAB COLLECTIO 04389 COMBINED COMBINED N VENOUS 0 PHYSICIAN PHYSICIAN BLOOD S LAB S LAB VENIPUNCT URE COLLECTIO 92238 COMBINED COMBINED N VENOUS 9 PHYSICIAN PHYSICIAN BLOOD S LAB S LAB VENIPUNCT URE HEMOGLOBI 86951 COMBINED COMBINED N 9 PHYSICIAN PHYSICIAN GLYCOSYLA S LAB S LAB JEFFY A1C ALBUMIN 91100 COMBINED COMBINED URINE 9 PHYSICIAN PHYSICIAN MICROALBU S LAB S LAB MIN QUANTIATI VE CREATININ 52592 COMBINED COMBINED E OTHER 9 PHYSICIAN PHYSICIAN SOURCE S LAB S LAB LIPID 46635 COMBINED COMBINED PANEL 9 PHYSICIAN PHYSICIAN S LAB S LAB COMPREHEN 10342 COMBINED COMBINED SIVE 9 PHYSICIAN PHYSICIAN [place] [address] COMBINED COMBINED THYROID 9 PHYSICIAN PHYSICIAN STIMULATI S LAB S LAB NG HORMONE TSH RADEX 68555 ROSEANNE CRONIN, SPINE 9 DON R DON R LUMBOSACR AL MINIMUM 4 VIEWS PROTHROMB 66473 COMBINED COMBINED IN TIME 9 PHYSICIAN PHYSICIAN S LAB S LAB COLLECTIO 94679 COMBINED COMBINED N VENOUS 9 PHYSICIAN PHYSICIAN BLOOD S LAB S LAB VENIPUNCT URE COLLECTIO 27638 COMBINED COMBINED N VENOUS 9 PHYSICIAN PHYSICIAN BLOOD S LAB S LAB VENIPUNCT URE PROTHROMB 71984 COMBINED COMBINED IN TIME 9 PHYSICIAN PHYSICIAN S LAB S LAB PROTHROMB 37806 COMBINED COMBINED IN TIME 9 PHYSICIAN PHYSICIAN S LAB S LAB COLLECTIO 51145 COMBINED COMBINED N VENOUS 9 PHYSICIAN PHYSICIAN BLOOD S LAB S LAB VENIPUNCT URE ADMINISTR G0008 ROSEANNE CRONIN, ATION OF 9 DON R DON R INFLUENZA VIRUS VACCINE IIV3 25286 ROSEANNE CRONIN, VACCINE 9 DON R DON R SPLIT VIRUS 0.5 ML DOSAGE IM USE COLLECTIO 66992 COMBINED COMBINED N VENOUS 9 PHYSICIAN PHYSICIAN BLOOD S LAB S LAB VENIPUNCT URE PROTHROMB 29255 COMBINED COMBINED IN TIME 9 PHYSICIAN PHYSICIAN S LAB S LAB PROTHROMB 01554 COMBINED COMBINED IN TIME 9 PHYSICIAN PHYSICIAN S LAB S LAB COLLECTIO 52444 COMBINED COMBINED N VENOUS 9 PHYSICIAN PHYSICIAN BLOOD S LAB S LAB VENIPUNCT URE COLLECTIO 66195 COMBINED COMBINED N VENOUS 9 PHYSICIAN PHYSICIAN BLOOD S LAB S LAB VENIPUNCT URE PROTHROMB 25971 COMBINED COMBINED IN TIME 9 PHYSICIAN PHYSICIAN S LAB S LAB PROTHROMB 80155 COMBINED COMBINED IN TIME 9 PHYSICIAN PHYSICIAN S LAB S LAB COLLECTIO 60277 COMBINED COMBINED N VENOUS 9 PHYSICIAN PHYSICIAN BLOOD S LAB S LAB VENIPUNCT URE COLLECTIO 05848 COMBINED COMBINED N VENOUS 9 PHYSICIAN PHYSICIAN BLOOD S LAB S LAB VENIPUNCT URE PROTHROMB 86078 COMBINED COMBINED IN TIME 9 PHYSICIAN PHYSICIAN S LAB S LAB PROTHROMB 21755 COMBINED COMBINED IN TIME 9 PHYSICIAN PHYSICIAN S LAB S LAB ECG 99142 ROSEANNE CRONIN, LUCY 9 DON R DON R ECG W/LEAST 12 LDS W/I&R RADIOLOGI 18795 ROSEANNE CRONIN, C 9 DON R DON R EXAMINATI ON CHEST SINGLE VIEW FRONTAL COLLECTIO 90174 COMBINED COMBINED N VENOUS 9 PHYSICIAN PHYSICIAN BLOOD S LAB S LAB VENIPUNCT URE COLLECTIO 05669 COMBINED COMBINED N VENOUS 9 PHYSICIAN PHYSICIAN BLOOD S LAB S LAB VENIPUNCT URE PROTHROMB 67743 COMBINED COMBINED IN TIME 9 PHYSIC[place] [address] COMBINED COMBINED THYROID 9 PHYSICIAN PHYSICIAN STIMULATI S LAB S LAB NG HORMONE TSH COLLECTIO 70191 COMBINED COMBINED N VENOUS 9 PHYSICIAN PHYSICIAN BLOOD S LAB S LAB VENIPUNCT URE PROTHROMB 89258 COMBINED COMBINED IN TIME 9 PHYSICIAN [place] [address] COMBINED COMBINED PROSTATE 9 PHYSICIAN PHYSICIAN SPECIFIC S LAB S LAB ANTIGEN TOTAL BLOOD 88341 COMBINED COMBINED COUNT 9 PHYSICIAN PHYSICIAN COMPLETE S LAB S LAB AUTO&AUTO DIFRNTL WBC COMPREHEN 43812 COMBINED COMBINED SIVE 9 PHYSICIAN PHYSICIAN METABOLIC S LAB S LAB PANEL LIPID 06523 COMBINED COMBINED PANEL 9 PHYSICIAN PHYSICIAN S LAB S LAB PROTHROMB 60884 COMBINED COMBINED IN TIME 9 PHYSICIAN PHYSICIAN S LAB S LAB COLLECTIO 67137 COMBINED COMBINED N VENOUS 9 PHYSICIAN PHYSICIAN BLOOD S LAB S LAB VENIPUNCT URE COLLECTIO 40082 COMBINED COMBINED N VENOUS 8 PHYSICIAN PHYSICIAN BLOOD S LAB S LAB VENIPUNCT URE PROTHROMB 24187 COMBINED COMBINED IN TIME 8 PHYSICIAN PHYSICIAN S LAB S LAB PROTHROMB 07452 COMBINED COMBINED IN TIME 8 PHYSICIAN PHYSICIAN S LAB S LAB COLLECTIO 14066 COMBINED COMBINED N VENOUS 8 PHYSICIAN PHYSICIAN BLOOD S LAB S LAB VENIPUNCT URE COLLECTIO 31011 COMBINED COMBINED N VENOUS 8 PHYSICIAN PHYSICIAN BLOOD S LAB S LAB VENIPUNCT URE PROTHROMB 77529 COMBINED COMBINED IN TIME 8 PHYSICIAN PHYSICIAN S LAB S LAB ADMINISTR G0008 ROSEANNE CRONIN, ATION OF 8 DON R DON R INFLUENZA VIRUS VACCINE PPSV23 [id number] ROSEANNE CRONIN, VACCINE 2 8 DON R DON R YRS OR OLDER FOR SUBQ/IM USE ADMINISTR G0009 ROSEANNE CRONIN, ATION OF 8 DON R DON R PNEUMOCOC MAYCO VACCINE IIV3 10608 ROSEANNE CRONIN, VACCINE 8 DON R DON R SPLIT VIRUS 0.5 ML DOSAGE IM USE BREAST 56953 [place] [facility] Ferrari TIME IMAGING W/IMAGE ASSOCIATE DOCUMENTA S TION MAMMOGRAP 82379 [facility] HY 8 [facility] BILATERAL INC INC SHAVING 21809 [facility] [facility] SKIN 8 , LEAH , LEAH LESION 1 F/E/E/N/L /M DIAM 0.5 CM/< COLLECTIO 15267 [facility] N VENOUS 8 [facility] BLOOD [facility] INC VENIPUNCT URE COMPREHEN 81984 [facility] SIVE 8 [facility] METABOLIC INC INC PANEL Encounters Encounter Start End Date Code Location Performer Type Date OFFICE 98108 [facility] 7 7 [facility] MINUT[facility] OFF[facility] 62728 [facility] 7 [facility] MIN[facility]ES OFF[facility] 52170 [facility] 7 [facility] T OFF[facility] 47666 [facility] 7 7 PHYSICIAN T VISIT S GROUP 25 MINUTES OFFICE 96694 [facility] 7 7 [facility] T V[facility] 15 CTR MINUTES OFFICE 69679 [facility] 7 7 FAMILY T V[facility] 15 CTR MINUTES OFFICE 15479 [facility] 7 7 FAMILY T VISIT HEALTH 15 CTR [facility] 82413 [facility] 6 6 PHYSICIAN T VISIT S GROUP 25 MINUTES [facility]OSP[facility] TEETEE [facility] 6 6 [facility] 85369 [facility] T [facility] 15 [facility] MIN[facility]ES OFFICE 51329 [facility] 6 [facility] T [facility] 15 [facility] MIN[facility] OFFICE 12875 [facility] 6 6 [facility] T V[facility] 15 CTR MINUTES OFFICE 58105 [facility] 6 6 [facility] T VISIT HEALTH 25 CTR MINUTES OFFICE 92534 [facility] OUTPAT[facility] 6 6 PHYSICIAN MAT T VISIT S GROUP 15 MINUTES [facility]OSP[facility] TEETEE - 6 6 [facility] OFFICE 38858 [facility]PAT[facility] 6 6 PHYSICIAN MAT T VISIT S GROUP 25 MINUTES [facility]OSP[facility] TEETEE - 5 5 [facility] T OFFICE 06207 [facility] OUTPATIEN 5 5 [facility] T VISIT CONSULTAN 25 TS O MINUTES OFFICE 79338 [facility] OUTPATIEN 5 5 [facility] T VISIT CONSULTAN 25 TS O MINUTES [facility]OSPITAL [facility]ETEE [facility] [address] [facility] 4 4 [facility] [address] [facility] OFFICE 25040 JUAQUIN [facility]ZA OUTPATIEN 4 4 [facility] NEW 20 MINUTES HOSPITAL TEETEE - [address] [facility] [address] [facility] TE[facility] 4 4 [facility] OUTPATIEN [facility] OFFICE 94886 CRONIN CRONIN OUTPAT[facility]EN 3 3 DON DON T VISIT 15 MINUTES HOSPITAL TEETEE - [address] [facility] OFFICE 97157 [facility] FALLUJI OUTPATIEN 2 2 FAWN FAWN T VISIT 25 MINUTES OFFICE 83771 CRONIN CRONIN OUTPATIEN 2 2 DON DON T VISIT 15 MINUTES [facility]OSPITAL TEETEE - [address] [facility] OFFICE 24366 CRONIN CRONIN OUTPATIEN 1 1 DON DON T VISIT 15 MINUTES OFFICE 40938 CRONIN CRONIN OUTPATIEN 1 1 DON DON T VISIT 15 MINUTES OFFICE 64019 [facility] FALLUJI OUTPATIEN 1 1 PHYSICIAN FAWN T VISIT S GROUP 25 MINUTES OFFICE 48864 CRONIN CRONIN OUTPATIEN 1 1 DON DON T VISIT 15 MINUTES OFFICE 81238 [facility] OUTPATI[facility] 0 0 PHYSICIAN FAWN T VISIT S GROUP 25 MINUTES OFFICE 35817 [facility] 0 0 DON DON T VISIT 25 MINUTES OFFICE 01047 [facility] OUTPATIEN 0 0 PHYSICIAN FAWN T VISIT S GROUP 25 MINUTES OFFICE 32491 [facility] CRONIN OUTPATIEN 0 0 DON DON T VISIT 15 MINUTES OFFICE 94618 [facility] 0 0 DON DON T VISIT 15 MINUTES OFFICE 69296 RO[facility]NE CRONIN, OUTPATIEN 0 0 DON R DON R T VISIT 15 MINUTES OFFICE 60237 [facility], OUTPATIEN 0 0 PHYSICIAN EMMANUEL M T VISIT S GROUP 25 MINUTES [facility]OSPITAL TEETEE - 0 0 [facility] T [facility] TEETEE - 0 0 [facility] T OFFICE 01567 [facility] OUTPATIEN 0 0 PHYSICIAN EMMANUEL M T VISIT S GROUP 25 MINUTES OFFICE 65654 RO[facility]NE CRONIN, OUTPATIEN 0 0 DON R DON R T VISIT 15 MINUTES OFFICE 33894 [facility] CRONIN OUTPATIEN 0 0 DON R DON R T VISIT 15 MINUTES OFFICE 02399 [facility] CRON[facility] OUTPATIEN 9 9 DON R DON R T VISIT 15 MINUTES OFFICE 06502 [facility] CRON[facility] OUTPATIEN 9 9 DON R DON R T VISIT 15 MINUTES OFFICE 41534 [facility] CRON[facility], OUTPATIEN 9 9 DON R DON R T VISIT 15 MINUTES OFFICE 59545 [facility] CRONIN OUTPATIEN 9 9 DON R DON R T VISIT 15 MINUTES OFFICE 30207 [facility] CRONIN OUTPATIEN 9 9 DON R DON R T VISIT 15 MINUTES OFFICE 51109 [facility] CRONIN OUTPATIEN 8 8 DON R DON R T VISIT 15 MINUTES OFFICE 94234 RO[facility] CRONIN OUTPATIEN 8 8 DON R DON R T VISIT 15 MINUTES OFFICE 22484 [facility] 8 8 , LEAH LYNN T VISIT 15 MINUTES [facility]OSP[facility] TEETEE - 8 8 [facility] OFFICE 07908 [facility] CONSULTAT 8 8 , LEAH LYNN ION NEW/ESTAB PATIENT 40 MIN OFFICE 50487 [facility] CRONIN OUTPATIEN 8 8 DON R DON R T VISIT 15 MINUTES OFFICE 23676 [place] BARBIE JEFFRIESPATICATARINA 8 8 HEART & NEZAR M T VISIT VASCULAR 25 ASSOC MINUTES OFFICE 21375 RO[facility]NE CRONIN OUTPATIEN 8 8 DON R DON R T VISIT 15 MINUTES OFFICE 71833 [facility] CRONIN OUTPATIEN 8 8 DON R DON R T VISIT 15 MINUTES OFFICE 22723 [place] CHRISTY JEFFRIES 8 8 HEART & NEZAR M T VISIT VASCULAR 25 ASSOC MINUTES OFFICE 18376 RO[facility]NE CRONIN OUTPATIEN 8 8 DON R DON R T VISIT 15 MINUTES OFFICE 22330 ROSEANNE CRONIN OUTPATIEN 8 8 DON R DON R T VISIT 15 MINUTES HOSPITAL TEETEE - 8 8 [facility] T OFFICE 01474 ROSEANNE CRONIN OUTPATIEN 8 8 DON R DON R T VISIT 15 MINUTES OFFICE 70872 ROSEANNE CRONIN OUTPATIEN 8 8 DON R DON R T VISIT 15 MINUTES
--- OUTSIDE RECORDS SUMMARY | 2017-08-15 10:36 | External Medical Summary Rpt ---
Demographics Preferred Language Yi Marital Status Unknown Mandaeism Affiliation Unknown Race Unknown Ethnic Group Unknown Author Author GRACY Address Unknown Phone Immunization No patient found.
--- OUTSIDE RECORDS SUMMARY | 2017-08-15 10:36 | External Medical Summary Rpt ---
Demographics Preferred Language Kazakh Marital Status Unknown Voodoo Affiliation Unknown Race Unknown Ethnic Group Unknown Author Author GRACY Address Unknown Phone Immunization No patient found.
--- OUTSIDE RECORDS SUMMARY | 2017-08-15 10:37 | External Medical Summary Rpt ---
Author Author [facility] [employer], [employer] Organization [employer] Address Unknown Phone Unavailable Results INR in Blood by Coagulation assay Observa Value Referen Units Interpr Notes Date tion ce etation Range IS PATIENT ON ANTICOAGULANTS? Y LIST ANTICOAGULANTS: COUMADIN PTT RESULTS MUST BE CALLED IF PT ON HEPARIN!!! 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 APY FOR DVT, PE, ATRIAL FIB; 2.0 - 3.0PROPHY LAXIS FOR VTETHERAP Y FOR MECHANICA L HEART 2.5 - 3.5VALVE; PREVENTIO N OF SYSTEMICE MBOLISM SECONDARY TO AMI Prothromb 9.4 - SECONDS High No Sep 27 in time 11.8 informati 2017 6:31 (PT) in on in AM Platelet source poor data plasma by Coagulati on assay CBC W Auto Differential panel in Blood Observa Value Referen Units Interpr Notes Date tion ce etation Range Granulocy 1.3 - 8.0 K/mm3 Normal No Sep 27 verna informati 2017 6:31 [#/volume on in AM ] in source Blood by data Automated count Granulocy 37.0 - % Normal No Sep 27 verna/100 80.0 informati 2017 6:31 leukocyte on in AM s in source Blood by data Automated count Hematocri 42.0 - % Normal No Sep 27 t [Volume 52.0 informati 2017 6:31 on in AM Fraction] source of Blood data Hemoglobi 14.1 - g/dL Low No Sep 27 n 18.0 informati 2017 6:31 [Mass/vol on in AM ume] in source Blood data Lymphocyt 0.7 - 4.5 K/mm3 Normal No Sep 27 es informati 2017 6:31 [#/volume on in AM ] in source Unspecifi data ed specimen by Automated count Lymphocyt 10 - 50 % Normal No Sep 27 es informati 2017 6:31 [#/volume on in AM ] in source Unspecifi data ed specimen by Automated count Erythrocy 27 - 31.2 pg Normal No Sep 27 te mean informati 2017 6:31 corpuscul on in AM ar source hemoglobi data n [Entitic mass] Erythrocy 31.8 - g/dl Low No Sep 27 te mean 35.4 informati 2017 6:31 corpuscul on in AM ar source hemoglobi data n concentra tion [Mass/vol ume] by Automated count Erythrocy 82.2 - fL Normal No Sep te mean 97.8 informati 2017 6:31 corpuscul on in AM ar volume source [Entitic data volume] by Automated count Monocytes 0.1 - 1.0 K/mm3 Normal No Sep 27 informati 2017 6:31 [#/volume on in AM ] in source Blood by data Automated count Monocytes 1.7 - 9.3 % Normal No Sep 27 /100 informati 2017 6:31 leukocyte on in AM s in source Blood by data Automated count Platelets 142 - 424 K/mm3 Normal No Sep informati 2017 6:31 [#/volume on in AM ] in source Blood data Erythrocy 4.6 - 6.2 M/mm3 Normal No Sep 27 verna informati 2017 6:31 [#/volume on in AM ] in source Amniotic data fluid Erythrocy 11.5 - % Normal No Sep te 17.5 informati 2017 6:31 distribut on in AM ion width source [Entitic data volume] by Automated count Leukocyte 4.8 - K/mm3 Normal No Sep 27 s 10.8 informati 2017 6:31 [#/volume on in AM ] in source Blood data Basic metabolic panel in Blood Observa Value Referen Units Interpr Notes Date tion ce etation Range Urea 7 - 18 mg/dL Normal No Aug 01 nitrogen informati 2017 6:31 [Mass/vol on in AM ume] in source Serum or data Plasma Calcium 8.5 - mg/dL Normal No Sep 27 [Mass/vol 10.1 informati 2017 6:31 ume] in on in AM Serum or source Plasma data Chloride 98 - 107 mmoL/L Normal No Sep 27 [Moles/vo informati 2017 6:31 lume] in on in AM Serum or source Plasma data Carbon 21.0 - mmoL/L Normal No Jul 27 dioxide, 32.0 informati 2017 6:31 total on in AM [Moles/vo source lume] in data Serum or Plasma Creatinin 0.70 - mg/dL Normal No Sep 27 e 1.30 informati 2017 6:31 [Mass/vol on in AM ume] in source Serum or data Plasma Creatinin 50 - 200 ML/MIN Normal No Sep 27 e renal informati 2017 6:31 clearance on in AM source predicted data by Cockcroft -Gault formula Estimated >60 ML/MIN No REFERENCE Sep 27 informati RANGE: 2017 6:31 glomerula on in >60 AM r source ML/MIN/1. filtratio data 73 SQUARE n rate METERSIf (GF this patient is -A merican, then multiply theresult by 1.210. Glucose 74 - 106 mg/dL Normal No Sep 27 [Mass/vol informati 2017 6:31 ume] in on in AM Serum or source Plasma data Potassium 3.5 - 5.1 mmoL/L Normal No Sep 27 informati 2017 6:31 [Moles/vo on in AM lume] in source Serum or data Plasma Sodium 136 - 145 mmoL/L Normal No Sep 27 [Moles/vo informati 2016 6:31 lume] in on in AM Serum or source Plasma data Hemoglobin.gastrointestinal [Presence] in Stool Observa Value Referen Units Interpr Notes Date tion ce etation Range Hemoglo POSITIV NEG No No No Sep 26 bin.gas E informa informa informa 2017 trointe tion in tion in tion in 9:40 AM stinal source source source [Presen data data data ce] in Stool --1st specime n INR in Blood by Coagulation assay Observa Value Referen Units Interpr Notes Date tion ce etation Range IS PATIENT ON ANTICOAGULANTS? Y LIST ANTICOAGULANTS: COUMADIN INR in 0.9 - 1.1 No High INDICATIO Sep 26 Blood by informati N 2016 9:25 Coagulati on in AM on assay source INR data RANGETHER APY FOR DVT, PE, ATRIAL FIB; 2.0 - 3.0PROPHY LAXIS FOR VTETHERAP Y FOR MECHANICA L HEART 2.5 - 3.5VALVE; PREVENTIO N OF SYSTEMICE MBOLISM SECONDARY TO AMI Prothromb 9.4 - SECONDS High No Sep 26 in time 11.8 informati 2017 9:25 (PT) in on in AM Platelet source poor data plasma by Coagulati on assay Comprehensive metabolic 2000 panel in Serum or Plasma Observa Value Referen Units Interpr Notes Date tion ce etation Range Albumin/G 1.1 - 1.8 No Low No Sep 26 lobulin informati informati 2017 9:25 [Mass on in on in AM ratio] in source source Serum or data data Plasma Albumin 3.4 - 5.0 gm/dL Normal No Sep 26 [Mass/vol informati 2017 9:25 ume] in on in AM Serum or source Plasma data Alkaline 46 - 116 U/L Normal No Sep 26 phosphata informati 2017 9:25 se on in AM [Enzymati source c data activity/ volume] in Serum or Plasma Bilirubin 0.2 - 1.0 mg/dL Normal No Sep 26 .total informati 2017 9:25 [Mass/vol on in AM ume] in source Serum or data Plasma Urea 7 - 18 mg/dL Normal No Sep 26 nitrogen informati 2017 9:25 [Mass/vol on in AM ume] in source Serum or data Plasma Calcium 8.5 - mg/dL Normal No Sep 26 [Mass/vol 10.1 informati 2017 9:25 ume] in on in AM Serum or source Plasma data Chloride 98 - 107 mmoL/L Normal No Sep 26 [Moles/vo informati 2017 9:25 lume] in on in AM Serum or source Plasma data Carbon 21.0 - mmoL/L Normal No Sep 26 dioxide, 32.0 informati 2017 9:25 total on in AM [Moles/vo source lume] in data Serum or Plasma Creatinin 0.70 - mg/dL Normal No Sep 26 e 1.30 informati 2017 9:25 [Mass/vol on in AM ume] in source Serum or data Plasma Creatinin 50 - 200 ML/MIN Normal No Sep 26 e renal informati 2017 9:25 clearance on in AM source predicted data by Cockcroft -Gault formula Estimated >60 ML/MIN No REFERENCE Sep 26 informati RANGE: 2017 9:25 glomerula on in >60 AM r source ML/MIN/1. filtratio data 73 SQUARE n rate METERSIf (GF this patient is -A merican, then multiply theresult by 1.210. Globulin 1.3 - 3.2 gm/dL High No Sep 26 [Mass/vol informati 2017 9:25 ume] in on in AM Serum source data Glucose 74 - 106 mg/dL High No Jul 31 [Mass/vol informati 2017 9:25 ume] in on in AM Serum or source Plasma data Potassium 3.5 - 5.1 mmoL/L Normal No Jul 31 informati 2017 9:25 [Moles/vo on in AM lume] in source Serum or data Plasma Sodium 136 - 145 mmoL/L Normal No Jul 31 [Moles/vo informati 2016 9:25 lume] in on in AM Serum or source Plasma data Aspartate 15 - 37 U/L Normal No Jul 31 informati 2017 9:25 aminotran on in AM sferase source [Enzymati data c activity/ volume] in Serum or Plasma Alanine 12 - 78 U/L Normal No Jul 31 aminotran informati 2016 9:25 sferase on in AM [Enzymati source c data activity/ volume] in Serum or Plasma Protein 6.4 - 8.2 gm/dL Normal No Jul 31 [Mass/vol informati 2016 9:25 ume] in on in AM Serum or source Plasma data CBC W Auto Differential panel in Blood Observa Value Referen Units Interpr Notes Date tion ce etation Range Granulocy 1.3 - 8.0 K/mm3 Normal No Jul 31 verna informati 2017 9:25 [#/volume on in AM ] in source Blood by data Automated count Granulocy 37.0 - % High No Jul 31 verna/100 80.0 informati 2017 9:25 leukocyte on in AM s in source Blood by data Automated count Hematocri 42.0 - % Normal No Jul 31 t [Volume 52.0 informati 2017 9:25 on in AM Fraction] source of Blood data Hemoglobi 14.1 - g/dL Normal No Jul 31 n 18.0 informati 2017 9:25 [Mass/vol on in AM ume] in source Blood data Lymphocyt 0.7 - 4.5 K/mm3 Normal No Jul 31 es informati 2017 9:25 [#/volume on in AM ] in source Unspecifi data ed specimen by Automated count Lymphocyt 10 - 50 % Normal No Jul 31 es informati 2017 9:25 [#/volume on in AM ] in source Unspecifi data ed specimen by Automated count Erythrocy 27 - 31.2 pg Normal No Jul 31 te mean informati 2016 9:25 corpuscul on in AM ar source hemoglobi data n [Entitic mass] Erythrocy 31.8 - g/dl Normal No Sep 26 te mean 35.4 informati 2016 9:25 corpuscul on in AM ar source hemoglobi data n concentra tion [Mass/vol ume] by Automated count Erythrocy 82.2 - fL Normal No Sep 26 te mean 97.8 informati 2016 9:25 corpuscul on in AM ar volume source [Entitic data volume] by Automated count Monocytes 0.1 - 1.0 K/mm3 Normal No Sep 26 informati 2017 9:25 [#/volume on in AM ] in source Blood by data Automated count Monocytes 1.7 - 9.3 % Normal No Jul 26 /100 informati 2017 9:25 leukocyte on in AM s in source Blood by data Automated count Platelets 142 - 424 K/mm3 Normal No Sep 26 informati 2016 9:25 [#/volume on in AM ] in source Blood data Erythrocy 4.6 - 6.2 M/mm3 Normal No Jul 26 verna informati 2016 9:25 [#/volume on in AM ] in source Amniotic data fluid Erythrocy 11.5 - % Normal No Jul 31 te 17.5 informati 2016 9:25 distribut on in AM ion width source [Entitic data volume] by Automated count Leukocyte 4.8 - K/mm3 Normal No Jul 26 s 10.8 informati 2016 9:25 [#/volume on in AM ] in source Blood data Comprehensive metabolic 2000 panel in Serum or Plasma Observa Value Referen Units Interpr Notes Date tion ce etation Range Albumin/G 1.1 - 1.8 No Low No Jun 26 lobulin informati informati 2017 6:00 [Mass on in on in AM ratio] in source source Serum or data data Plasma Albumin 3.4 - 5.0 gm/dL Low No Jun 26 [Mass/vol informati 2016 6:00 ume] in on in AM Serum or source Plasma data Alkaline 46 - 116 U/L Normal No Jun 26 phosphata informati 2017 6:00 se on in AM [Enzymati source c data activity/ volume] in Serum or Plasma Bilirubin 0.2 - 1.0 mg/dL Normal No Jun 26 .total informati 2017 6:00 [Mass/vol on in AM ume] in source Serum or data Plasma Urea 7 - 18 mg/dL Normal No Jun 26 nitrogen informati 2017 6:00 [Mass/vol on in AM ume] in source Serum or data Plasma Calcium 8.5 - mg/dL Low No Jun 26 [Mass/vol 10.1 informati 2016 6:00 ume] in on in AM Serum or source Plasma data Chloride 98 - 107 mmoL/L High No Jun 26 [Moles/vo informati 2016 6:00 lume] in on in AM Serum or source Plasma data Carbon 21.0 - mmoL/L Normal No Jun 26 dioxide, 32.0 informati 2016 6:00 total on in AM [Moles/vo source lume] in data Serum or Plasma Creatinin 0.70 - mg/dL Normal No Jun 26 e 1.30 informati 2016 6:00 [Mass/vol on in AM ume] in source Serum or data Plasma Creatinin 50 - 200 ML/MIN Normal No Jun 26 e renal informati 2016 6:00 clearance on in AM source predicted data by Cockcroft -Gault formula Estimated >60 ML/MIN No REFERENCE Jun 26 informati RANGE: 2017 6:00 glomerula on in >60 AM r source ML/MIN/1. filtratio data 73 SQUARE n rate METERSIf (GF this patient is -A merican, then multiply theresult by 1.210. Globulin 1.3 - 3.2 gm/dL High No Jun 26 [Mass/vol informati 2016 6:00 ume] in on in AM Serum source data Glucose 74 - 106 mg/dL Normal No Jun 26 [Mass/vol informati 2016 6:00 ume] in on in AM Serum or source Plasma data Potassium 3.5 - 5.1 mmoL/L Normal No Jun 26 informati 2016 6:00 [Moles/vo on in AM lume] in source Serum or data Plasma Sodium 136 - 145 mmoL/L Normal No Jun 26 [Moles/vo informati 2016 6:00 lume] in on in AM Serum or source Plasma data Aspartate 15 - 37 U/L Normal No Jun 26 informati 2017 6:00 aminotran on in AM sferase source [Enzymati data c activity/ volume] in Serum or Plasma Alanine 12 - 78 U/L Low No Jun 26 aminotran informati 2016 6:00 sferase on in AM [Enzymati source c data activity/ volume] in Serum or Plasma Protein 6.4 - 8.2 gm/dL Low No Jun 26 [Mass/vol informati 2016 6:00 ume] in on in AM Serum or source Plasma data CBC W Auto Differential panel in Blood Observa Value Referen Units Interpr Notes Date tion ce etation Range Basophils 0 - 0.2 K/MM3 Normal No Jun 26 informati 2016 6:00 [#/volume on in AM ] in source Blood by data Automated count Basophils 0.1 - 2.0 % Normal No Jun 26 /100 informati 2017 6:00 leukocyte on in AM s in source Blood by data Automated count Eosinophi 0.0 - 0.4 K/mm3 Normal No Jun 26 ls informati 2017 6:00 [#/volume on in AM ] in source Blood by data Automated count Eosinophi 0.1 - % Normal No Jun 26 ls/100 12.0 informati 2016 6:00 leukocyte on in AM s in source Blood by data Automated count Granulocy 1.3 - 8.0 K/mm3 Normal No Jun 26 verna informati 2016 6:00 [#/volume on in AM ] in source Blood by data Automated count Granulocy 37.0 - % Normal No Jun 26 verna/100 80.0 informati 2016 6:00 leukocyte on in AM s in source Blood by data Automated count Hematocri 42.0 - % Low No Jun 26 t [Volume 52.0 informati 2016 6:00 on in AM Fraction] source of Blood data Hemoglobi 14.1 - g/dL Low No Jun 26 n 18.0 informati 2016 6:00 [Mass/vol on in AM ume] in source Blood data Lymphocyt 0.7 - 4.5 K/mm3 Normal No Jun 26 es informati 2016 6:00 [#/volume on in AM ] in source Unspecifi data ed specimen by Automated count Lymphocyt 10 - 50 % Normal No Jun 26 es informati 2016 6:00 [#/volume on in AM ] in source Unspecifi data ed specimen by Automated count Erythrocy 27 - 31.2 pg Normal No Jun 26 te mean informati 2016 6:00 corpuscul on in AM ar source hemoglobi data n [Entitic mass] Erythrocy 31.8 - g/dl Normal No Jun 26 te mean 35.4 informati 2016 6:00 corpuscul on in AM ar source hemoglobi data n concentra tion [Mass/vol ume] by Automated count Erythrocy 82.2 - fl Normal No Jun 26 te mean 97.8 informati 2017 6:00 corpuscul on in AM ar volume source [Entitic data volume] by Automated count Monocytes 0.1 - 1.0 K/mm3 Normal No Jun 26 informati 2017 6:00 [#/volume on in AM ] in source Blood by data Automated count Monocytes 1.7 - 9.3 % Normal No Jun 26 /100 informati 2017 6:00 leukocyte on in AM s in source Blood by data Automated count Platelet 7.4 - fl Low No Jun 26 mean 10.4 informati 2017 6:00 volume on in AM [Entitic source volume] data in Blood by Automated count Platelets 142 - 424 K/mm3 Normal No Jun 26 informati 2017 6:00 [#/volume on in AM ] in source Blood data Erythrocy 4.6 - 6.2 M/mm3 Low No Jun 26 verna informati 2017 6:00 [#/volume on in AM ] in source Amniotic data fluid Erythrocy 11.5 - % Normal Jun 26 te 17.5 informati 2016 6:00 distribut on in AM ion width source [Entitic data volume] by Automated count Leukocyte 4.8 - K/MM3 Normal No Jun 26 s 10.8 informati 2016 6:00 [#/volume on in AM ] in source Blood data Comprehensive metabolic 2000 panel in Serum or Plasma Observa Value Referen Units Interpr Notes Date tion ce etation Range Albumin/G 1.1 - 1.8 No Low No Jun 25 lobulin informati informati 2017 6:16 [Mass on in on in AM ratio] in source source Serum or data data Plasma Albumin 3.4 - 5.0 gm/dL Low No Jun 25 [Mass/vol informati 2017 6:16 ume] in on in AM Serum or source Plasma data Alkaline 46 - 116 U/L Normal No Jun 25 phosphata informati 2017 6:16 se on in AM [Enzymati source c data activity/ volume] in Serum or Plasma Bilirubin 0.2 - 1.0 mg/dL High No Jun 25 .total informati 2017 6:16 [Mass/vol on in AM ume] in source Serum or data Plasma Urea 7 - 18 mg/dL Normal No Jun 25 nitrogen informati 2017 6:16 [Mass/vol on in AM ume] in source Serum or data Plasma Calcium 8.5 - mg/dL Low No Jun 25 [Mass/vol 10.1 informati 2017 6:16 ume] in on in AM Serum or source Plasma data Chloride 98 - 107 mmoL/L High No Jun 25 [Moles/vo informati 2016 6:16 lume] in on in AM Serum or source Plasma data Carbon 21.0 - mmoL/L Normal No Jun 25 dioxide, 32.0 informati 2017 6:16 total on in AM [Moles/vo source lume] in data Serum or Plasma Creatinin 0.70 - mg/dL Normal No Jun 25 e 1.30 informati 2017 6:16 [Mass/vol on in AM ume] in source Serum or data Plasma Creatinin 50 - 200 ML/MIN Normal No Jun 25 e renal informati 2017 6:16 clearance on in AM source predicted data by Cockcroft -Gault formula Estimated >60 ML/MIN No REFERENCE Jun 25 informati RANGE: 2017 6:16 glomerula on in >60 AM r source ML/MIN/1. filtratio data 73 SQUARE n rate METERSIf (GF this patient is -A merican, then multiply theresult by 1.210. Globulin 1.3 - 3.2 gm/dL No No Jun 25 [Mass/vol informati informati 2017 6:16 ume] in on in on in AM Serum source source data data Glucose 74 - 106 mg/dL Normal No Jun 25 [Mass/vol informati 2016 6:16 ume] in on in AM Serum or source Plasma data Potassium 3.5 - 5.1 mmoL/L Normal No Jun 25 informati 2017 6:16 [Moles/vo on in AM lume] in source Serum or data Plasma Sodium 136 - 145 mmoL/L Normal No Jun 25 [Moles/vo informati 2017 6:16 lume] in on in AM Serum or source Plasma data Aspartate 15 - 37 U/L No No Jun 25 informati informati 2017 6:16 aminotran on in on in AM sferase source source [Enzymati data data c activity/ volume] in Serum or Plasma Alanine 12 - 78 U/L Low No Jun 25 aminotran informati 2017 6:16 sferase on in AM [Enzymati source c data activity/ volume] in Serum or Plasma Protein 6.4 - 8.2 gm/dL Low No Jun 25 [Mass/vol informati 2017 6:16 ume] in on in AM Serum or source Plasma data CBC W Auto Differential panel in Blood Observa Value Referen Units Interpr Notes Date tion ce etation Range Basophils 0 - 0.2 K/MM3 Normal No Jun 25 informati 2017 6:16 [#/volume on in AM ] in source Blood by data Automated count Basophils 0.1 - 2.0 % Normal No Jun 25 /100 informati 2017 6:16 leukocyte on in AM s in source Blood by data Automated count Eosinophi 0.0 - 0.4 K/mm3 Normal No Jun 25 ls informati 2016 6:16 [#/volume on in AM ] in source Blood by data Automated count Eosinophi 0.1 - % Normal No Jun 25 ls/100 12.0 informati 2017 6:16 leukocyte on in AM s in source Blood by data Automated count Granulocy 1.3 - 8.0 K/mm3 Normal No Jun 25 verna informati 2017 6:16 [#/volume on in AM ] in source Blood by data Automated count Granulocy 37.0 - % Normal No Jun 25 verna/100 80.0 informati 2016 6:16 leukocyte on in AM s in source Blood by data Automated count Hematocri 42.0 - % Low No Jun 25 t [Volume 52.0 informati 2017 6:16 on in AM Fraction] source of Blood data Hemoglobi 14.1 - g/dL Low No Jun 25 n 18.0 informati 2016 6:16 [Mass/vol on in AM ume] in source Blood data Lymphocyt 0.7 - 4.5 K/mm3 Normal No Jun 25 es informati 2016 6:16 [#/volume on in AM ] in source Unspecifi data ed specimen by Automated count Lymphocyt 10 - 50 % Normal No Jun 25 es informati 2016 6:16 [#/volume on in AM ] in source Unspecifi data ed specimen by Automated count Erythrocy 27 - 31.2 pg Normal No Jun 25 te mean informati 2017 6:16 corpuscul on in AM ar source hemoglobi data n [Entitic mass] Erythrocy 31.8 - g/dl Normal No Jun 25 te mean 35.4 informati 2016 6:16 corpuscul on in AM ar source hemoglobi data n concentra tion [Mass/vol ume] by Automated count Erythrocy 82.2 - fl Normal No Jun 25 te mean 97.8 informati 2016 6:16 corpuscul on in AM ar volume source [Entitic data volume] by Automated count Monocytes 0.1 - 1.0 K/mm3 Normal No Jun 25 inform2016 6:16 [#/volume on in AM ] in source Blood by data Automated count Monocytes 1.7 - 9.3 % Normal No Jun 25 /100 informati 2016 6:16 leukocyte on in AM s in source Blood by data Automated count Platelet 7.4 - fl Low Jun 25 mean 10.4 informati 2016 6:16 volume on in AM [Entitic source volume] data in Blood by Automated count Platelets 142 - 424 K/mm3 Low No Jun 25 informati 2017 6:16 [#/volume on in AM ] in source Blood data Erythrocy 4.6 - 6.2 M/mm3 Low No Jun 25 verna informati 2016 6:16 [#/volume on in AM ] in source Amniotic data fluid Erythrocy 11.5 - % Normal No Jun 25 te 17.5 informati 2016 6:16 distribut on in AM ion width source [Entitic data volume] by Automated count Leukocyte 4.8 - K/MM3 No Jun 25 s 10.8 informati informati 2016 6:16 [#/volume on in on in AM ] in source source Blood data data DIARRHEA PANEL,PCR Observa Value Referen Units Interpr Notes Date tion ce etation Range Adenovi NOT NOT No No No Jun 24 anjelica DETECTE DETECTE informa informa informa 2016 40+41 D tion in tion in tion in 9:00 AM Ag source source source [Presen data data data ce] in Stool Aeromon NOT NOT No No No Jun 24 as DETECTE DETECTE informa informa informa 2016 salmoni D tion in tion in tion in 9:00 AM bernarda source source source [Presen data data data ce] in Unspeci fied specime n Astrovi NOT NOT No No No Jun 24 anjelica DETECTE DETECTE informa informa informa 2016 [Presen D tion in tion in tion in 9:00 AM ce] in source source source Stool data data data by Electro n microsc opy Campylo NOT NOT No No No Jun 24 bacter DETECTE DETECTE informa informa informa 2016 sp Ab D tion in tion in tion in 9:00 AM [Presen source source source ce] in data data data Serum Clostri DETECTE NOT No Abnorma RESULTS Jun 24 dium D DETECTE informa l CALLED 2017 diffici tion in TO: 9:00 AM le source MAIKEL.CAC toxin data H A+B [Presen 7 1156 ce] in Homar,Ri Stool chard Cryptos NOT NOT No No No Jun 24 poridiu DETECTE DETECTE informa informa informa 2017 m sp Ag D tion in tion in tion in 9:00 AM source source source [Presen data data data ce] in Unspeci fied specime n Cyclosp NOT NOT No No No Jun 24 ora DETECTE DETECTE informa informa informa 2017 cayetan D tion in tion in tion in 9:00 AM conner source source source [Presen data data data ce] in Unspeci fied specime n Escheri NOT NOT No No No Jun 24 connor DETECTE DETECTE informa informa informa 2017 coli D tion in tion in tion in 9:00 AM [Presen source source source ce] in data data data Unspeci fied specime n by Culture FDA method Escheri NOT NOT No No No Jun 24 connor DETECTE DETECTE informa informa informa 2017 coli D tion in tion in tion in 9:00 AM [Presen source source source ce] in data data data Unspeci fied specime n by Culture FDA method Escheri NOT NOT No No No Jun 24 connor DETECTE DETECTE informa informa informa 2017 coli D tion in tion in tion in 9:00 AM Shiga-l source source source krystal data data data toxin 1 assa Escheri NOT NOT No No No Jun 24 connor DETECTE DETECTE informa informa informa 2017 coli D tion in tion in tion in 9:00 AM [id number] source source source data data data [Presen ce] in Stool by Organis m specifi c culture Entamoe NOT NOT No No No Jun 24 ba DETECTE DETECTE informa informa informa 2017 histoly D tion in tion in tion in 9:00 AM samir source source source [Presen data data data ce] in Stool by Trichro me stain Giardia NOT NOT No No No Jun 24 DETECTE DETECTE informa informa informa 2016 lamblia D tion in tion in tion in 9:00 AM Ag source source source [Presen data data data ce] in Stool Norovir NOT NOT No No No Jun 24 us Ag DETECTE DETECTE informa informa informa 2016 [Presen D tion in tion in tion in 9:00 AM ce] in source source source Stool data data data Stool NOT NOT No No No Jun 24 Plesiom DETECTE DETECTE informa informa informa 2017 onas D tion in tion in tion in 9:00 AM shigell source source source oides data data data DNA detec Rotavir NOT NOT No No No Jun 24 us RNA DETECTE DETECTE informa informa informa 2017 detecti D tion in tion in tion in 9:00 AM on by source source source probe data data data and tar Salmone NOT NOT No No No Jun 24 lla sp DETECTE DETECTE informa informa informa 2016 DNA D tion in tion in tion in 9:00 AM [Identi source source source fier] data data data in Unspeci fied specime n by Probe & target amplifi cation method Caliciv NOT NOT No No No Jun 24 irus DETECTE DETECTE informa informa informa 2016 [Identi D tion in tion in tion in 9:00 AM fier] source source source in data data data Stool by Electro n microsc opy Escheri NOT NOT No No No Jun 24 connor DETECTE DETECTE informa informa informa 2016 coli D tion in tion in tion in 9:00 AM [Presen source source source ce] in data data data Unspeci fied specime n by Culture FDA method Escheri NOT NOT No No No Jun 24 connor DETECTE DETECTE informa informa informa 2016 coli D tion in tion in tion in 9:00 AM SXT source source source gene+H7 data data data gene [Identi fier] in Unspeci fied specime n by Probe & target amplifi cation method Vibrio NOT NOT No No No Jun 24 cholera DETECTE DETECTE informa informa informa 2017 e DNA D tion in tion in tion in 9:00 AM [Presen source source source ce] in data data data Unspeci fied specime n by Probe & target amplifi cation method Vibrio NOT NOT No No No Jun 24 sp DNA DETECTE DETECTE informa informa informa 2016 [Identi D tion in tion in tion in 9:00 AM fier] source source source in data data data Unspeci fied specime n by Probe & target amplifi cation method Vibrio NOT NOT No No No Jun 24 sp DETECTE DETECTE informa informa informa 2016 identif D tion in tion in tion in 9:00 AM ied in source source source Stool data data data by Kvng m specifi c culture Basic metabolic panel in Blood Observa Value Referen Units Interpr Notes Date tion ce etation Range Urea 7 - 18 mg/dL Normal No Jun 24 nitrogen informati 2016 6:30 [Mass/vol on in AM ume] in source Serum or data Plasma Calcium 8.5 - mg/dL Normal No Jun 24 [Mass/vol 10.1 informati 2016 6:30 ume] in on in AM Serum or source Plasma data Chloride 98 - 107 mmoL/L Normal No Jun 24 [Moles/vo informati 2016 6:30 lume] in on in AM Serum or source Plasma data Carbon 21.0 - mmoL/L Normal No Jun 24 dioxide, 32.0 informati 2017 6:30 total on in AM [Moles/vo source lume] in data Serum or Plasma Creatinin 0.70 - mg/dL Normal No Jun 24 e 1.30 informati 2017 6:30 [Mass/vol on in AM ume] in source Serum or data Plasma Creatinin 50 - 200 ML/MIN Normal No Jun 24 e renal informati 2017 6:30 clearance on in AM source predicted data by Cockcroft -Gault formula Estimated >60 ML/MIN No REFERENCE Jun 24 informati RANGE: 2017 6:30 glomerula on in >60 AM r source ML/MIN/1. filtratio data 73 SQUARE n rate METERSIf (GF this patient is -A merican, then multiply theresult by 1.210. Glucose 74 - 106 mg/dL High No Jun 24 [Mass/vol informati 2016 6:30 ume] in on in AM Serum or source Plasma data Potassium 3.5 - 5.1 mmoL/L Normal No Jun 24 informati 2016 6:30 [Moles/vo on in AM lume] in source Serum or data Plasma Sodium 136 - 145 mmoL/L Normal No Jun 24 [Moles/vo informati 2017 6:30 lume] in on in AM Serum or source Plasma data CBC W Auto Differential panel in Blood Observa Value Referen Units Interpr Notes Date tion ce etation Range Basophils 0 - 0.2 K/MM3 Normal No Jun 24 informati 2017 6:30 [#/volume on in AM ] in source Blood by data Automated count Basophils 0.1 - 2.0 % Normal No Jun 24 / informati 2017 6:30 leukocyte on in AM s in source Blood by data Automated count Eosinophi 0.0 - 0.4 K/mm3 Normal No Jun 24 ls informati 2017 6:30 [#/volume on in AM ] in source Blood by data Automated count Eosinophi 0.1 - % Normal No Jun 24 ls/100 12.0 informati 2017 6:30 leukocyte on in AM s in source Blood by data Automated count Granulocy 1.3 - 8.0 K/mm3 High No Jun 24 verna informati 2017 6:30 [#/volume on in AM ] in source Blood by data Automated count Granulocy 37.0 - % High No Jun 24 verna/100 80.0 informati 2017 6:30 leukocyte on in AM s in source Blood by data Automated count Hematocri 42.0 - % Normal No Jun 24 t [Volume 52.0 informati 2017 6:30 on in AM Fraction] source of Blood data Hemoglobi 14.1 - g/dL Normal No Jun 24 n 18.0 informati 2017 6:30 [Mass/vol on in AM ume] in source Blood data Lymphocyt 0.7 - 4.5 K/mm3 Normal No Jun 24 es informati 2017 6:30 [#/volume on in AM ] in source Unspecifi data ed specimen by Automated count Lymphocyt 10 - 50 % Low No Jun 24 es informati 2016 6:30 [#/volume on in AM ] in source Unspecifi data ed specimen by Automated count Erythrocy 27 - 31.2 pg Normal No Jun 24 te mean informati 2017 6:30 corpuscul on in AM ar source hemoglobi data n [Entitic mass] Erythrocy 31.8 - g/dl Normal No Jun 24 te mean 35.4 informati 2016 6:30 corpuscul on in AM ar source hemoglobi data n concentra tion [Mass/vol ume] by Automated count Erythrocy 82.2 - fl Normal No Jun 24 te mean 97.8 informati 2016 6:30 corpuscul on in AM ar volume source [Entitic data volume] by Automated count Monocytes 0.1 - 1.0 K/mm3 Normal No Jun 24 informati 2016 6:30 [#/volume on in AM ] in source Blood by data Automated count Monocytes 1.7 - 9.3 % Normal No Jun 20 /100 informati 2017 6:30 leukocyte on in AM s in source Blood by data Automated count Platelet 7.4 - fl Low No Jun 24 mean 10.4 informati 2017 6:30 volume on in AM [Entitic source volume] data in Blood by Automated count Platelets 142 - 424 K/mm3 Normal No Jun 24 informati 2017 6:30 [#/volume on in AM ] in source Blood data Erythrocy 4.6 - 6.2 M/mm3 Normal No Jun 24 verna informati 2016 6:30 [#/volume on in AM ] in source Amniotic data fluid Erythrocy 11.5 - % Normal No Jun 24 te 17.5 informati 2016 6:30 distribut on in AM ion width source [Entitic data volume] by Automated count Leukocyte 4.8 - K/MM3 High No Jun 24 s 10.8 informati 2016 6:30 [#/volume on in AM ] in source Blood data Lactate [Moles/volume] in Blood Observa Value Referen Units Interpr Notes Date tion ce etation Range Lactate 0.4 - 2.0 mmol/L Normal No Jun 23 [Moles/vo informati 2016 2:04 lume] in on in AM Blood source data INR in Blood by Coagulation assay Observa Value Referen Units Interpr Notes Date tion ce etation Range IS PATIENT ON ANTICOAGULANTS? Y INR in 0.9 - 1.1 No High INDICATIO Jun 23 Blood by informati N 2017 1:25 Coagulati on in AM on assay source INR data RANGETHER APY FOR DVT, PE, ATRIAL FIB; 2.0 - 3.0PROPHY LAXIS FOR VTETHERAP Y FOR MECHANICA L HEART 2.5 - 3.5VALVE; PREVENTIO N OF SYSTEMICE MBOLISM SECONDARY TO AMI Prothromb 9.4 - SECONDS High No Jun 23 in time 11.8 informati 2017 1:25 (PT) in on in AM Platelet source poor data plasma by Coagulati on assay Activated partial thrombplastin time (aPTT) in Platelet poor plasma by Coagulation assay Observa Value Referen Units Interpr Notes Date tion ce etation Range IS PATIENT ON ANTICOAGULANTS? 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 UNDER plasma by [facility]) on assay 06/23/17 0153 Kareen Mcpherson hn CBC W Auto Differential panel in Blood Observa Value Referen Units Interpr Notes Date tion ce etation Range Basophils 0 - 0.2 K/MM3 Normal No Jun 23 inform2016 1:25 [#/volume on in AM ] in source Blood by data Automated count Basophils 0.1 - 2.0 % Normal No Jun 23 inform2016 1:25 leukocyte on in AM s in source Blood by data Automated count Eosinophi 0.0 - 0.4 K/mm3 Normal No Jun 23 ls 2016 1:25 [#/volume on in AM ] in source Blood by data Automated count Eosinophi 0.1 - % Normal No Jun 23 ls/100 12.0 informati 2016 1:25 leukocyte on in AM s in source Blood by data Automated count Granulocy 1.3 - 8.0 K/mm3 High No Jun 23 verna 2016 1:25 [#/volume on in AM ] in source Blood by data Automated count Granulocy 37.0 - % High No Jun 23 verna/100 80.0 informati 2016 1:25 leukocyte on in AM s in source Blood by data Automated count Hematocri 42.0 - % Normal No Jun 23 t [Volume 52.0 informati 2016 1:25 on in AM Fraction] source of Blood data Hemoglobi 14.1 - g/dL No No Jun 23 n 18.0 informati informati 2016 1:25 [Mass/vol on in on in AM ume] in source source Blood data data Lymphocyt 0.7 - 4.5 K/mm3 Normal No Jun 23 es informati 2016 1:25 [#/volume on in AM ] in source Unspecifi data ed specimen by Automated count Lymphocyt 10 - 50 % Normal No Jun 23 es informati 2016 1:25 [#/volume on in AM ] in source Unspecifi data ed specimen by Automated count Erythrocy 27 - 31.2 pg Normal No Jun 23 te mean informati 2017 1:25 corpuscul on in AM ar source hemoglobi data n [Entitic mass] Erythrocy 31.8 - g/dl Normal No Jun 23 te mean 35.4 informati 2017 1:25 corpuscul on in AM ar source hemoglobi data n concentra tion [Mass/vol ume] by Automated count Erythrocy 82.2 - fl Normal No Jun 23 te mean 97.8 informati 2017 1:25 corpuscul on in AM ar volume source [Entitic data volume] by Automated count Monocytes 0.1 - 1.0 K/mm3 Normal No Jun 23 informati 2017 1:25 [#/volume on in AM ] in source Blood by data Automated count Monocytes 1.7 - 9.3 % Normal No Jun 23 /100 informati 2017 1:25 leukocyte on in AM s in source Blood by data Automated count Platelet 7.4 - fl Normal No Jun 23 mean 10.4 informati 2017 1:25 volume on in AM [Entitic source volume] data in Blood by Automated count Platelets 142 - 424 K/mm3 Normal No Jun 23 informati 2017 1:25 [#/volume on in AM ] in source Blood data Erythrocy 4.6 - 6.2 M/mm3 Normal No Jun 23 verna informati 2017 1:25 [#/volume on in AM ] in source Amniotic data fluid Erythrocy 11.5 - % Normal No Jun 23 te 17.5 informati 2017 1:25 distribut on in AM ion width source [Entitic data volume] by Automated count Leukocyte 4.8 - K/MM3 High No Jun 23 s 10.8 informati 2016 1:25 [#/volume on in AM ] in source Blood data
--- OUTSIDE RECORDS SUMMARY | 2017-08-15 10:37 | External Medical Summary Rpt ---
[...] thrombpla C AM stin time DENIZ (aPTT) [employer] in (PT Platelet NOTYET poor UNDER plasma by [facility]) on assay 06/23/17 0153 Kareen [...]
== END 2017-08-01 11:05 | disposition home or self-care (01) ==
LOC: ER 09:01 → 2ND 13:36
PROVIDERS: Emergency Medicine
DX: K92.1 Melena (principal); K62.89 Other specified diseases of anus and rectum; R25.1 Tremor, unspecified; K59.00 Constipation, unspecified; I25.10 Atherosclerotic heart disease of native coronary artery without angina pectoris; I25.2 Old myocardial infarction; I10 Essential (primary) hypertension; E78.5 Hyperlipidemia, unspecified; E03.9 Hypothyroidism, unspecified; I48.91 Unspecified atrial fibrillation; Z95.2 Presence of prosthetic heart valve; Z79.01 Long term (current) use of anticoagulants; Z79.82 Long term (current) use of aspirin; Z79.899 Other long term (current) drug therapy; Z95.5 Presence of coronary angioplasty implant and graft
CPT/HCPCS: G0328; G0378; Q9967